=== PATIENT | female | born 1945 | race Caucasian/White ===

== ENCOUNTER 2017-02-25 04:35 | Inpatient (IN) | payer MEDICARE ==
[2017-02-25] MEDS ORDERED: ACETAMINOPHEN 325 MG TABLET ONE (04:59)
--- NOTE | 2017-02-25 04:59 | ERNOTE ---
Medical Problem HPI - Narrative Date of Service: 02/25/17 - General Chief Complaint: Fever Time Seen by Provider: 02/25/17 04:56 Source: patient, family Exam Limitations: no limitations - Immun/Allergies/Home Medications Immunizations: IMMUNIZATION HX Immunizations Up to Date Yes History of Influenza Vaccine Yes Hx Pneumococcal Vaccination Yes Allergies/Adverse Reactions: Allergies escitalopram oxalate [From Lexapro] Allergy (Verified 09/29/14 10:06) Home Medications: HOME MEDICATIONS Amitriptyline HCl 150 mg PO 09/29/14 [Last Taken Unknown] Atorvastatin Calcium [Lipitor] 20 mg PO DAILY 09/29/14 [Last Taken Unknown] Esomeprazole Magnesium [Nexium] 40 mg PO DAILY 09/29/14 [Last Taken Unknown] Lisinopril [Zestril] 10 mg PO DAILY 09/29/14 [Last Taken Unknown] - History of Present History Narrative: C/O FEVER AND WEAKNESS THIS MORNING. DENIES OTHER PROBLEMS EXCEPT THAT SHE HAS "BAD REFLUX". SHE DENIES COUGHING, EARACHE , CONGESTION, SORE THROAT. NO N & V & D. NO UTI SX'S. NO ABD PAINS. NO KNOWN CONTACTS. GENERALLY WELL. HAS STOPPED TAKING THE HTN MEDS SHE WAS PREVIOUSLY ON. Timing: unsure Review of Systems - Review of Systems Constitutional: Present: See HPI, fever, weakness, malaise EYE: Present: no symptoms reported ENT: Present: no symptoms reported Respiratory: Present: no symptoms reported Cardiology: Present: edema Gastrointestinal/Abdominal: Present: See HPI Genitourinary: Present: no symptoms reported Musculoskeletal: Present: no symptoms reported Skin: Present: no symptoms reported Neurological: Present: no symptoms reported Endocrine: Present: no symptoms reported Hematologic/Lymphatic: Present: no symptoms reported Psych: Present: no symptoms reported - Patient's Past Medical History Patient History - Medical: Anxiety, Depression, GERD, Hypothyroidism Patient History - Cardiac/Respiratory: Hypertension, Hyperlipidemia, Pneumonia Patient History - Cancer: No Hx of Cancer Patient History - Surgical Procedures: No surgical history Patient History - Other: None - Social History Living Situations: home Abuse History: No History of abuse Psych History: Hx of Anxiety, Hx of Depression Smoking Status: Never smoker Alcohol Use: none Drug Use: none - Immunizations Immunizations Up to Date: Yes Hx Pneumococcal Vaccination: Yes History of Influenza Vaccine: Yes Physical Exam - Physical Exam General Appearance: Present: wd/wn, alert, mild distress Eye Exam: Normal inspection: bilateral Ears, Nose, Throat: Present: normal ENT inspection Neck: Present: normal inspection Respiratory: Present: no respiratory distress, no accessory muscle use, chest nontender, rales - BILATERAL BASILAR RALES , R> L Cardiovascular/Chest: Present: no murmur, normal peripheral pulses, tachycardia Gastrointestinal/Abdominal: Present: normal bowel sounds, nontender, nondistended, soft, no organomegaly Back Exam: Present: normal inspection, normal range of motion, no CVA tenderness Extremity Exam: Present: normal inspection Neurological Exam: Present: alert, oriented, normal mood/affect Skin Exam: Present: normal color, warm/dry ED Progress - Results and Orders Patient's Lab Results:: I have reviewed the patient's lab results. Results and Orders: ELEVATED WBC WITH LEFT SHIFT AND ELEVATED LACTIC = 3.0. URINE IS CLEAR. - Vital Signs Patient's Vital Signs:: I have reviewed the patient's vital signs. Vital Signs: Vital Signs 02/25/17 04:38 Temperature 39.2 C H Pulse Rate 130 H Respiratory 20 Rate Blood Pressure 151/66 O2 Sat by Pulse 93 Oximetry - X-Ray X-Ray #1 X-Ray: chest Interpretation: Interp. by me - POSTERIOR CARDIAC INFILTRATE ON LATERAL AND INCREASED RLL MARKINGS. - Progress/Reassessment Chief Complaint: Fever Plan - Plan Plan: D/W HOSPITALIST ,[facility], AND ARRANGED FOR ADMISSION. I HAVE ORDERED LEVAQUIN 750 MG IV INITIAL DOSE AND SHE IS RECEIVING 1 LITER OF NS BOLUS Departure - Departure Clinical Impression: Lactic acid increased Fever Qualifiers: Fever type: due to other condition Qualified Code(s): R50.81 - Fever presenting with conditions classified elsewhere Pneumonia Qualifiers: Pneumonia type: due to unspecified organism Laterality: bilateral Lung location : lower lobe of lung Qualified Code(s): J18.9 - Pneumonia, unspecified organism Disposition: [facility] Condition: Fair Referrals: Matthew Berman DO [Primary Care Provider] -
[2017-02-25 05:00] LABS: Hematocrit 35.3 % (37.0-47.0); Hemoglobin 11.8 gm/dL (12.5-16.0); Mean Corpuscular Hemoglobin 29.4 pg (27-31); Mean Corpuscular Hgb Conc 33.4 g/dl (32-36); Neutrophil # 15.1 K/mm3 (1.3-6.0); Neutrophil % 89.5 % (42-75.0); Platelet Count 264 K/mm3 (150-450); Red Blood Count 4.01 M/mm3 (4.2-5.4); White Blood Count 16.8 K/mm3 (4.0-10.5)
[2017-02-25] MEDS ORDERED: NORMAL SALINE 1,000 ML IV SCH (05:00)
[2017-02-25] MEDS ORDERED: ACETAMINOPHEN 325 MG TABLET PO ONE (05:01)
[2017-02-25 05:05] LABS: Urine Bilirubin Negative (NEGATIVE); Urine Blood Negative /ul (NEGATIVE); Urine Ketone Negative (NEGATIVE); Urine Nitrite Negative (NEGATIVE); Urine Protein Negative (NEGATIVE); Urine Urobilinogen Normal (NORMAL); Urine pH 6.5 pH (5.0-7.0)
[2017-02-25 05:06] LABS: Urine Appearance Clear; Urine Bacteria None Seen; Urine Color Pale Yellow; Urine RBC 0-5 /hpf (0-5); Urine WBC 0-5 /hpf (0-5)
[2017-02-25] MEDS ORDERED: NORMAL SALINE 1,000 ML IV PRN (05:10)
[2017-02-25] MEDS ORDERED: SODIUM CHLORIDE IV SCH (05:11)
[2017-02-25] MEDS ORDERED: LEVOFLOXACIN/D5W 750 MG/150 ML BAG IV ONE (05:15)
[2017-02-25 05:24] LABS: Albumin * 3.3 gm/dl (3.4-5.0); Anion Gap 12.4 mmol/L (6.8-13.8); BUN/Creatinine Ratio 11.5 (9.0-21.6); Bilirubin, Total 0.3 mg/dL (0.0-1.1); Ca. Corrected For Albumin 8.7 mg/dL (8.4-10.2); Calcium * 8.5 mg/dL (7.9-10.9); Carbon Dioxide 27.1 mmol/L (24-32.6); Potassium 3.5 mmol/L (3.4-4.6); Total Protein 6.6 gm/dL (6.2-8.2)
--- NOTE | 2017-02-25 06:44 | HP ---
Chief Complaint - Chief Complaint Date of Service: 02/25/17 Time of Service: 06:09 Chief Complaint: " Confusion, weakness, fever, coughing". Source of HPI- Pt; unreliable, pt's spouse Luis, PARESH provoder report. History of Present Illness: Mrs. Jean is a 72-yr-old [place] pt of Dr. Matthew Berman with a PMH of:Anxiety, GERD, HLD, HTN, Hypothyroidism, & Migraines. Pt appears forgetful and Spouse, Luis, provided most of the information. She states repeatedly that the reason she came to the ED was due to "acid reflux attack" and cannot elaborate further the sequence of her symptoms. Luis states that Mrs. Jean has been sleeping on the recliner for the last 2 days due to "bad acid reflux" that causes her to cough and makes it difficult for her to breath." Around 02.00 am, Luis states he was awoken by pt's voice in the kitchen. He thought she was talking on the telephone, but 'actually she was sitting down in the chair talking to herself.' She felt hot to touch. Luis states that she tried to get her up to bring her to the hospital, but she was too weak to stand up. He called the EMS and she was brought to the [facility] ER. He denies Mrs. Jean having the associated symptoms of N/V, SOB, Abdominal pain,Diarrhea & chest pain. During the evaluation at the ED, she was found to have Leukocytosis with a count of 16,800 and Left shift. She was febrile with a temp of 39.2, tachycardic in 120s and has lactic acid of 3.0. The CXR obtained had findings consistent for pneumonia. She will need to be admitted inpatient for a minimum of 2 midnights due to Sepsis and she has a pneumonia seventy score of 3 on CURB-65, which carries a 14 % mortality risk, and calls for inpatient treatment with possible ICU admission. - Patient's Past Medical History Patient History - Medical: Anxiety, Depression, GERD, Hypothyroidism Patient History - Cardiac/Respiratory: Hypertension, Hyperlipidemia, Pneumonia Patient History - Cancer: No Hx of Cancer Patient History - Surgical Procedures: No surgical history Patient History - Other: None - Family History Father Family History - Medical: Family History - Cardiac/Respiratory: Coronary Heart Disease, COPD, Myocardial Infarction Mother Family History - Medical: Family History - Cancer: Pancreatic - Social History Living Situations: home Abuse History: No History of abuse Psych History: Hx of Anxiety, Hx of Depression Smoking Status: Never smoker Alcohol Use: none Drug Use: none - Immunizations Immunizations Up to Date: Yes Hx Pneumococcal Vaccination: Yes History of Influenza Vaccine: Yes Review Of Systems (GEN) - Review of Systems Generalized/Overall Review: Present: Weakness, Chills, Fever, Malaise. Absent: Weight loss EENTM: Present: Eye Pain, Throat Pain. Absent: Nose Congestion Respiratory: Present: Cough, Shortness of Breath. Absent: Orthopnea Cardiac: Absent: Chest Pain, Edema, Palpitations Abdominal: Absent: Nausea, Vomiting, Hematemesis, Abdominal Pain, Constipation Genitourinary: Absent: Burning, Itching, Urgency, Frequency Musculoskeletal: Absent: Joint Pain, Back Pain, Joint Swelling Neurological: Present: Emotional Problems. Absent: Headache, Anxiety, Depressed Skin: Present: Dryness Endocrine: Present: Intolerance to Cold. Absent: Intolerance to Heat, Increased Hunger, Increased Thirst Misc: All systems neg except as marked Immunizations: IMMUNIZATION HX Immunizations Up to Date Yes History of Influenza Vaccine Yes Hx Pneumococcal Vaccination Yes Allergies/Adverse Reactions: Allergies Allergy/AdvReac Type Severity Reaction Status Date / Time escitalopram oxalate Allergy Severe lips Verified 02/25/17 08:07 [From Lexapro] swelling, difficulty swollwing Home Medications: HOME MEDICATIONS Amitriptyline HCl 150 mg PO DAILY 09/29/14 [Last Taken Unknown] ALPRAZolam [Xanax] 0.5 mg PO PRN 02/25/17 [Last Taken Unknown] Acetaminophen with Codeine [Tylenol with Codeine #3 Tablet] 1 each PO Q6H PRN MDD 4 tab 02/25/17 [Last Taken Unknown] Levofloxacin [Levaquin] 750 mg PO DAILY #7 tab 02/25/17 [Last Taken Unknown] Levothyroxine Sodium [Synthroid] 88 mcg PO DAILY 02/25/17 [Last Taken Unknown] Omeprazole 20 mg PO BID 02/25/17 [Last Taken Unknown] Ranitidine HCl [Zantac] 150 mg PO BID 02/25/17 [Last Taken Unknown] Exam - Exam Vital Signs: Vital Signs - Last Taken Temp 38.7 C H 02/25/17 06:04 Pulse 120 H 02/25/17 06:04 Resp 25 H 02/25/17 06:04 BP 144/63 02/25/17 06:04 Pulse Ox 94 02/25/17 06:04 Constitutional: Present: Alert, Oriented x3, Cooperative, Mild distress ENT Exam: Present: normal ENT inspection, hearing grossly normal, dry mucous membranes. Absent: nasal drainage, pharyngeal erythema Neck: Present: full range of motion, supple, normal inspection Back Exam: Present: normal inspection, no CVA tenderness Breasts: Present: Exam deferred Respiratory: Present: lungs clear - RT base, rales Cardiovascular/Chest: Present: no chest tenderness, no edema, tachycardia Abdomen: Present: Normal bowel sounds, soft, nontender /Rectal: Present: Exam deferred Extremity: Present: normal range of motion, non-tender, normal inspection Skin Exam: Present: warm/dry, no cyanosis Lymphatic: Present: no adenopathy Neurologic: Present: alert, normal mood/affect, oriented x 3 Appearance: Present: appropriate appearance, appropriate insight Eye contact: Present: cooperative, good eye contact, normal speech Thoughts: Present: normal thought pattern, no apparent hallucination Diagnostic Studies: Laboratory Results WBC 16.8 K/mm3 (4.0-10.5) H 02/25/17 04:50 RBC 4.01 M/mm3 (4.2-5.4) L 02/25/17 04:50 Hgb 11.8 gm/dL (12.5-16.0) L 02/25/17 04:50 Hct 35.3 % (37.0-47.0) L 02/25/17 04:50 MCV 88.0 fl (78-100) 02/25/17 04:50 MCH 29.4 pg (27-31) 02/25/17 04:50 MCHC 33.4 g/dl (32-36) 02/25/17 04:50 RDW 13.0 % (11.5-14.0) 02/25/17 04:50 Plt Count 264 K/mm3 (150-450) 02/25/17 04:50 MPV 10.0 fl (6.0-9.5) H 02/25/17 04:50 Immature Gran % (Auto) 0.40 % (0.001-0.429) 02/25/17 04:50 Immature Gran # (Auto) 0.07 K/mm3 (0.000-0.0310) H 02/25/17 04:50 Neutrophils % 89.5 % (42-75.0) H 02/25/17 04:50 Lymphocytes % 4.2 % (20-51) L 02/25/17 04:50 Monocytes % 5.2 % (0.0-9) 02/25/17 04:50 Eosinophils % 0.3 % (0.0-3.0) 02/25/17 04:50 Basophils % 0.4 % (0.0-1.0) 02/25/17 04:50 Nucleated RBC % 0.0 k/mm3 (0-1) 02/25/17 04:50 Neutrophils # 15.1 K/mm3 (1.3-6.0) H 02/25/17 04:50 Lymphocytes # 0.7 k/mm3 (1.5-3.5) L 02/25/17 04:50 Monocytes # 0.9 k/mm3 (0.0-1.0) 02/25/17 04:50 Eosinophils # 0.1 k/mm3 (0.0-0.7) 02/25/17 04:50 Absolute Basophils 0.1 k/mm3 (0.0-0.1) 02/25/17 04:50 Sodium 139 mmol/L (132-142) 02/25/17 04:50 Plasma Sodium 139 mmol/L (130-142) 02/25/17 04:50 Potassium 3.5 mmol/L (3.4-4.6) 02/25/17 04:50 Chloride 103 mmol/L (97-106) 02/25/17 04:50 Carbon Dioxide 27.1 mmol/L (24-32.6) 02/25/17 04:50 Anion Gap 12.4 mmol/L (6.8-13.8) 02/25/17 04:50 BUN 11 mg/dL (3-23) 02/25/17 04:50 Creatinine 0.96 mg/dL (0.4-1.4) 02/25/17 04:50 Est GFR (Non-Af Amer) 61 mL/min (60-130) D 02/25/17 04:50 BUN/Creatinine Ratio 11.5 (9.0-21.6) 02/25/17 04:50 Random Glucose 122 mg/dL (70-110) H 02/25/17 04:50 Lactic Acid, Venous 3.0 mmol/L (0.4-1.9) H* 02/25/17 04:50 Calcium 8.5 mg/dL (7.9-10.9) 02/25/17 04:50 Calcium Adj for Albumin 8.7 mg/dL (8.4-10.2) 02/25/17 04:50 Total Bilirubin 0.3 mg/dL (0.0-1.1) 02/25/17 04:50 AST 21 U/L (0-48) 02/25/17 04:50 ALT 20 U/L (19-67) 02/25/17 04:50 Alkaline Phosphatase 74 U/L (50-170) 02/25/17 04:50 Total Protein 6.6 gm/dL (6.2-8.2) 02/25/17 04:50 Albumin 3.3 gm/dl (3.4-5.0) L 02/25/17 04:50 Urine Color Pale yellow 02/25/17 04:50 Urine Appearance Clear 02/25/17 04:50 Urine pH 6.5 pH (5.0-7.0) 02/25/17 04:50 Ur Specific [place] 1.010 SP.GR. (1.005-1.010) 02/25/17 04:50 Urine Protein Negative mg/dL (NEGATIVE) 02/25/17 04:50 Urine Glucose (UA) Negative mg/dL (NEGATIVE) 02/25/17 04:50 Urine Ketones Negative mg/dL (NEGATIVE) 02/25/17 04:50 Urine Blood Negative /ul (NEGATIVE) 02/25/17 04:50 Urine Nitrate Negative (NEGATIVE) 02/25/17 04:50 Urine Bilirubin Negative mg/dl (NEGATIVE) 02/25/17 04:50 Urine Urobilinogen Normal EU/dl (NORMAL) 02/25/17 04:50 Ur Leukocyte Esterase Negative /ul (NEGATIVE) 02/25/17 04:50 Urine RBC 0-5 /hpf (0-5) 02/25/17 04:50 Urine WBC 0-5 /hpf (0-5) 02/25/17 04:50 Ur Epithelial Cells 0-5 /hpf (0-5) 02/25/17 04:50 Urine Bacteria None seen (NONE) 02/25/17 04:50 Urine Culture Comments Culture to follow 02/25/17 04:50 Assessment/Plan - Assessment/Plan (1) Sepsis Assessment: Meets sepsis Criteria noted with: temp of 39.2, HR 130, WBC of 16,800, Lactic Acidosis 3.0 - & Suspected source of infection- Pneumonia. Will treat according to Sepsis protocol- Aggressive IVF hydration, IV antibiotics, trend Lactic acid. Problem: Acute (2) Pneumonia Assessment: The CXR showed Pneumonia in [place], Leukocytosis noted on CBC, and she was febrile with a temp of 39.2. She did not have respiratory symptoms as such involving SOB, coughing, sputum production but these symptom may be subtle in the elderly and the may present instead with weakness, functional decline or change in mental status. Will continue with IV Levaquin as initiated from ER as we await blood & sputum cultures. Encourage coughing and deep breathing, ambulation, Cornet q 2 hrs. Monitor CBC in am. Problem: Acute Qualifiers: Pneumonia type: due to unspecified organism Laterality: bilateral Lung location: lower lobe of lung Qualified Code(s): J18.9 - Pneumonia, unspecified organism (3) Migraine Assessment: Utilize APAP & Toradol q 6hrs. Problem: Chronic (4) GERD (gastroesophageal reflux disease) Assessment: Stable- Continue Omeprazole and Ranitidine. Problem: Chronic (5) HLD (hyperlipidemia) Problem: Chronic (6) Hypothyroidism Problem: Chronic (7) Anxiety Problem: Chronic
[2017-02-25] MEDS: KETOROLAC TROMETHAMINE 15 MG/ML VIAL IV PRN ×3 (07:03→21:03)
[2017-02-25] MEDS: NORMAL SALINE 1,000 ML IV PRN ×3 (07:05→22:52)
[2017-02-25 13:32] LABS: Hematocrit 34.4 % (37.0-47.0); Hemoglobin 11.3 gm/dL (12.5-16.0); Mean Cell Volume 89.6 fl (78-100); Mean Corpuscular Hemoglobin 29.4 pg (27-31); Mean Corpuscular Hgb Conc 32.8 g/dl (32-36); Mean Platelet Volume 10.9 fl (6.0-9.5); Platelet Count 265 K/mm3 (150-450); Red Blood Count 3.84 M/mm3 (4.2-5.4); Red Cell Distribution Width 13.4 % (11.5-14.0); White Blood Count 29.4 K/mm3 (4.0-10.5)
[2017-02-25 14:13] LABS: Neutrophil 71 % (42-75)
[2017-02-25 14:14] LABS: Atypical (Reactive) Lymph 1 % (0-2); Band 18 % (0-2.0); Lymphocyte 4 % (20-51); Monocyte 6 % (0-9); Neutrophil # 20.9 K/mm3 (1.3-6.0); Platelet Estimate Normal (NORMAL)
[2017-02-25 14:15] LABS: Toxic Granulation 1+
[2017-02-25 14:16] LABS: Dohle Bodies Trace; Total Cells Counted 100
[2017-02-25] MEDS: LEVOTHYROXINE SODIUM 88 MCG TABLET PO SCH (14:48)
[2017-02-25] MEDS: PANTOPRAZOLE SODIUM 20 MG TABLET.DR PO SCH (21:03)
[2017-02-25] MEDS: FAMOTIDINE 20 MG TABLET PO SCH (21:03)
[2017-02-26] MEDS: LEVOFLOXACIN/D5W 750 MG/150 ML BAG IV SCH (04:26)
[2017-02-26 05:34] LABS: Hematocrit 29.2 % (37.0-47.0); Hemoglobin 9.6 gm/dL (12.5-16.0); Mean Cell Volume 89.3 fl (78-100); Mean Corpuscular Hemoglobin 29.4 pg (27-31); Mean Corpuscular Hgb Conc 32.9 g/dl (32-36); Mean Platelet Volume 10.5 fl (6.0-9.5); Neutrophil # 20.4 K/mm3 (1.3-6.0); Neutrophil % 85.4 % (42-75.0); Platelet Count 221 K/mm3 (150-450); Red Blood Count 3.27 M/mm3 (4.2-5.4); Red Cell Distribution Width 13.5 % (11.5-14.0); White Blood Count 23.8 K/mm3 (4.0-10.5)
[2017-02-26 05:39] LABS: Total Cells Counted 100
[2017-02-26 05:52] LABS: Anion Gap 12.9 mmol/L (6.8-13.8); BUN/Creatinine Ratio 11.7 (9.0-21.6); Carbon Dioxide 23.5 mmol/L (24-32.6); Estimated Creat Clear 51.5; Potassium 3.4 mmol/L (3.4-4.6)
[2017-02-26 06:03] LABS: Lymphocyte 13 % (20-51); Monocyte 3 % (0-9); Neutrophil 84 % (42-75); Platelet Estimate Normal (NORMAL)
[2017-02-26 06:04] LABS: RBC Morphology Normal (NORMAL)
[2017-02-26] MEDS: PANTOPRAZOLE SODIUM 20 MG TABLET.DR PO SCH ×2 (06:20→20:13)
[2017-02-26] MEDS: KETOROLAC TROMETHAMINE 15 MG/ML VIAL IV PRN ×2 (06:21→13:41)
[2017-02-26] MEDS: LEVOTHYROXINE SODIUM 88 MCG TABLET PO SCH (06:21)
--- NOTE | 2017-02-26 06:26 | PN ---
Subjective - Date and Time Seen Date: 02/26/17 Time: 06:23 Subjective Narrative: Mrs. Jean examined this am. Feels weak and not back to normal self. States that her chest hurts when she takes a deep breath. Has not ambulated much. Objective - Vitals Vitals: Last Vital Signs Temp 37.4 C 02/26/17 03:00 Pulse 101 H 02/26/17 03:00 Resp 18 02/26/17 03:00 BP 111/49 02/26/17 03:00 Pulse Ox 90 02/26/17 03:00 - Abnormal Lab Findings Abnormal Lab Findings: Abnormal Lab Results 02/25/17 02/26/17 02/26/17 Range/Units 12:06 05:15 05:15 WBC 29.4 H D 23.8 H (4.0-10.5) K/mm3 RBC 3.84 L 3.27 L (4.2-5.4) M/mm3 Hgb 11.3 L 9.6 L (12.5-16.0) gm/dL Hct 34.4 L 29.2 L (37.0-47.0) % MPV 10.9 H 10.5 H (6.0-9.5) fl Immature Gran % (Auto) 1.00 H (0.001-0.429) % Immature Gran # (Auto) 0.23 H (0.000-0.0310) K/mm3 Neutrophils % 85.4 H (42-75.0) % Neutrophils % (Manual) 84 H (42-75) % Band Neuts % (Manual) 18 H (0-2.0) % Lymphocytes % 8.9 L (20-51) % Lymphocytes % (Manual) 4 L 13 L (20-51) % Neutrophils # 20.4 H (1.3-6.0) K/mm3 Neutrophils # (Manual) 20.9 H 20.0 H (1.3-6.0) K/mm3 Lymphocytes # (Manual) 1.2 L (1.5-3.5) k/mm3 Monocytes # (Manual) 1.8 H (0.0-1.0) k/mm3 Chloride 107 H (97-106) mmol/L Carbon Dioxide 23.5 L (24-32.6) mmol/L - Exam Constitutional: Present: Alert, Oriented x3, No distress ENT Exam: Present: normal ENT inspection, hearing grossly normal. Absent: nasal drainage Neck: Present: full range of motion, supple, normal inspection Breasts: Present: Exam deferred Respiratory: Present: rales - Both bases of Lungs Cardiovascular/Chest: Present: regular rate, rhythm, no chest tenderness, no edema, no murmur Abdomen: Present: Normal bowel sounds, soft, nontender /Rectal: Present: Exam deferred Extremity: Present: normal range of motion, non-tender Skin Exam: Present: warm/dry, no cyanosis Lymphatic: Present: no adenopathy Neurologic: Present: no motor/sensory deficits, alert, oriented x 3, depressed affect. Absent: dizzy/light-headedness Appearance: Present: appropriate appearance, appropriate insight Eye contact: Present: cooperative, good eye contact, normal speech Thoughts: Present: normal thought pattern, no apparent hallucination Assessment/Plan - Problems/Diagnosis (1) Sepsis Problem: Acute Narrative: Met the sepsis Criteria noted with: temp of 39.2, HR 130, WBC of 16,800, Lactic Acidosis 3.0 - & Suspected source of infection- Pneumonia. Treated according to Sepsis protocol- Aggressive IVF hydration, IV antibiotics - on Levaquin, wait on blood culture to switch antibiotics. Will stop IVF hydration due to rales on LS this am. (2) Pneumonia Problem: Acute Qualifiers: Pneumonia type: due to unspecified organism Laterality: bilateral Lung location: lower lobe of lung Qualified Code(s): J18.9 - Pneumonia, unspecified organism Narrative: The CXR showed Pneumonia in [place], Leukocytosis noted on CBC, and she was febrile with a temp of 39.2 on DOA. She did not have respiratory symptoms as such involving SOB, coughing, sputum production but these symptom may be subtle in the elderly and the may present instead with weakness, functional decline or change in mental status. WBC trending down but slowly Laboratory Tests 02/25/17 02/25/17 02/26/17 04:50 12:06 05:15 WBC 16.8 H 29.4 H D 23.8 H Will continue with IV Levaquin as initiated from ER as we await blood & sputum cultures. Encourage coughing and deep breathing, ambulation, Cornet q 2 hrs. Monitor CBC in am (3) Migraine Problem: Chronic Narrative: Utilize APAP & Toradol q 6hrs. (4) GERD (gastroesophageal reflux disease) Problem: Chronic (5) HLD (hyperlipidemia) Problem: Chronic (6) Hypothyroidism Problem: Chronic (7) Anxiety Problem: Chronic
[2017-02-26] MEDS ORDERED: AMITRIPTYLINE HCL 50 MG TABLET PO SCH (09:00)
[2017-02-26] MEDS ORDERED: ALPRAZolam 0.5 MG TABLET PO PRN (09:00)
[2017-02-26] MEDS: FAMOTIDINE 20 MG TABLET PO SCH ×2 (09:42→20:13)
--- NOTE | 2017-02-26 09:43 | PN ---
Progess Note - Interim Narrative: 02/26/17 09:42 WBC down to 23 from 29. transferred to acute status.
[2017-02-26] MEDS: ACETAMINOPHEN 325 MG TABLET PO PRN (13:41)
[2017-02-26] MEDS: AMITRIPTYLINE HCL 50 MG TABLET PO SCH (20:13)
[2017-02-27] MEDS: LEVOFLOXACIN/D5W 750 MG/150 ML BAG IV SCH (05:14)
[2017-02-27] MEDS: ACETAMINOPHEN 325 MG TABLET PO PRN ×2 (05:34→15:00)
--- NOTE | 2017-02-27 06:17 | PN ---
Subjective - Date and Time Seen Date: 02/27/17 Time: 06:15 Subjective Narrative: Pt examined this am. No issues overnight according to nursing. Feels somewhat better minus the 'on & off' fevers. Objective - Vitals Vitals: Last Vital Signs Temp 37.9 C H 02/27/17 05:35 Pulse 98 02/26/17 22:43 Resp 16 02/26/17 22:43 BP 133/61 02/26/17 22:43 Pulse Ox 91 02/26/17 22:43 - Exam Constitutional: Present: Alert, Oriented x3, Cooperative, No distress ENT Exam: Present: normal ENT inspection, hearing grossly normal Neck: Present: full range of motion, supple Breasts: Present: Exam deferred Respiratory: Present: no accessory muscle use, rales Cardiovascular/Chest: Present: normal peripheral pulses, regular rate, rhythm, no chest tenderness, no edema, no murmur Abdomen: Present: Normal bowel sounds, soft, nontender /Rectal: Present: Exam deferred Extremity: Present: normal range of motion, non-tender, normal inspection Skin Exam: Present: warm/dry, no cyanosis Lymphatic: Present: no adenopathy Neurologic: Present: no motor/sensory deficits, alert, normal mood/affect, oriented x 3 Appearance: Present: appropriate appearance, appropriate insight Eye contact: Present: cooperative, good eye contact, normal speech Thoughts: Present: normal thought pattern, no apparent hallucination Assessment/Plan - Problems/Diagnosis (1) Sepsis Problem: Acute Narrative: Met the sepsis Criteria noted with: temp of 39.2, HR 130, WBC of 16,800, Lactic Acidosis 3.0 - & Suspected source of infection- Pneumonia. Treated according to Sepsis protocol- Aggressive IVF hydration, IV antibiotics - on Levaquin, wait on blood culture to switch antibiotics. (2) Pneumonia Problem: Acute Qualifiers: Pneumonia type: due to unspecified organism Laterality: bilateral Lung location: lower lobe of lung Qualified Code(s): J18.9 - Pneumonia, unspecified organism Narrative: The CXR showed Pneumonia in [place], Leukocytosis noted on CBC, and she was febrile with a temp of 39.2 on DOA. She did not have respiratory symptoms as such involving SOB, coughing, sputum production but these symptom may be subtle in the elderly and the may present instead with weakness, functional decline or change in mental status. Laboratory Tests 02/25/17 02/25/17 02/26/17 04:50 12:06 05:15 WBC 16.8 H 29.4 H D 23.8 H Will continue with IV Levaquin as initiated from ER as we await blood & sputum cultures. May add or change iv antibiotics if WBC has not improved significantly today. Encourage coughing and deep breathing, ambulation, Cornet q 2 hrs. Monitor CBC in am (3) Migraine Problem: Chronic Narrative: Utilize APAP & Toradol q 6hrs. (4) GERD (gastroesophageal reflux disease) Problem: Chronic (5) HLD (hyperlipidemia) Problem: Chronic (6) Hypothyroidism Problem: Chronic (7) Anxiety Problem: Chronic
[2017-02-27] MEDS: PANTOPRAZOLE SODIUM 20 MG TABLET.DR PO SCH ×2 (07:09→20:18)
[2017-02-27] MEDS: LEVOTHYROXINE SODIUM 88 MCG TABLET PO SCH (07:09)
[2017-02-27] MEDS: FAMOTIDINE 20 MG TABLET PO SCH ×2 (08:44→20:18)
[2017-02-27 09:00] LABS: Hemoglobin 9.5 gm/dL (12.5-16.0); Mean Cell Volume 88.1 fl (78-100); Mean Corpuscular Hemoglobin 28.9 pg (27-31); Mean Corpuscular Hgb Conc 32.8 g/dl (32-36); Neutrophil # 15.2 K/mm3 (1.3-6.0); Platelet Count 205 K/mm3 (150-450); Red Blood Count 3.29 M/mm3 (4.2-5.4); Red Cell Distribution Width 13.4 % (11.5-14.0); White Blood Count 17.8 K/mm3 (4.0-10.5)
[2017-02-27 09:08] LABS: Anion Gap 9.8 mmol/L (6.8-13.8); BUN/Creatinine Ratio 6.9 (9.0-21.6); Calcium * 8.1 mg/dL (7.9-10.9); Carbon Dioxide 28.3 mmol/L (24-32.6); Estimated Creat Clear 45.5; Potassium 3.1 mmol/L (3.4-4.6)
[2017-02-27] MEDS ORDERED: POTASSIUM CHLORIDE 10 MEQ TABLET.SA PO ONE (10:43)
[2017-02-27] MEDS ORDERED: ALBUTEROL SULFATE/IPRATROPIUM 3 ML NEBU IH PRN (15:11)
[2017-02-27] MEDS: AMITRIPTYLINE HCL 50 MG TABLET PO SCH (20:17)
[2017-02-28] MEDS: ACETAMINOPHEN 325 MG TABLET PO PRN ×2 (00:15→11:53)
[2017-02-28] MEDS: LEVOFLOXACIN/D5W 750 MG/150 ML BAG IV SCH (05:13)
[2017-02-28] MEDS: LEVOTHYROXINE SODIUM 88 MCG TABLET PO SCH (06:20)
[2017-02-28] MEDS: PANTOPRAZOLE SODIUM 20 MG TABLET.DR PO SCH ×2 (06:21→20:49)
[2017-02-28 09:05] LABS: Hematocrit 30.5 % (37.0-47.0); Hemoglobin 10.3 gm/dL (12.5-16.0); Mean Cell Volume 87.4 fl (78-100); Mean Corpuscular Hemoglobin 29.5 pg (27-31); Mean Corpuscular Hgb Conc 33.8 g/dl (32-36); Neutrophil # 10.9 K/mm3 (1.3-6.0); Neutrophil % 80.5 % (42-75.0); Platelet Count 237 K/mm3 (150-450); Red Blood Count 3.49 M/mm3 (4.2-5.4); Red Cell Distribution Width 13.4 % (11.5-14.0); White Blood Count 13.5 K/mm3 (4.0-10.5)
[2017-02-28 09:12] LABS: Anion Gap 11.8 mmol/L (6.8-13.8); BUN/Creatinine Ratio 5.1 (9.0-21.6); Calcium * 8.7 mg/dL (7.9-10.9); Carbon Dioxide 28.9 mmol/L (24-32.6); Estimated Creat Clear 50.8; Potassium 3.7 mmol/L (3.4-4.6)
[2017-02-28] MEDS: FAMOTIDINE 20 MG TABLET PO SCH ×2 (09:27→20:49)
[2017-02-28] MEDS: HEPARIN SODIUM,PORCINE 5,000 UNITS/ML VIAL SC SCH ×2 (09:28→20:50)
--- NOTE | 2017-02-28 12:25 | PN ---
Subjective - Date and Time Seen Date: 02/28/17 Time: 12:20 Subjective Narrative: Lesvia has had chills and another fever this AM. Weak and coughing. No n/v. Objective - Vitals Vitals: Last Vital Signs Temp 38.2 C H 02/28/17 11:49 Pulse 103 H 02/28/17 10:59 Resp 20 02/28/17 10:59 BP 160/76 02/28/17 10:59 Pulse Ox 95 02/28/17 10:59 - Abnormal Lab Findings Abnormal Lab Findings: Abnormal Lab Results 02/28/17 02/28/17 Range/Units 08:59 08:59 WBC 13.5 H D (4.0-10.5) K/mm3 RBC 3.49 L (4.2-5.4) M/mm3 Hgb 10.3 L (12.5-16.0) gm/dL Hct 30.5 L (37.0-47.0) % MPV 10.0 H (6.0-9.5) fl Immature Gran % (Auto) 1.80 H (0.001-0.429) % Immature Gran # (Auto) 0.24 H (0.000-0.0310) K/mm3 Neutrophils % 80.5 H (42-75.0) % Lymphocytes % 10.2 L (20-51) % Neutrophils # 10.9 H (1.3-6.0) K/mm3 Lymphocytes # 1.4 L (1.5-3.5) k/mm3 Plasma Sodium 143 H (130-142) mmol/L BUN/Creatinine Ratio 5.1 L (9.0-21.6) Random Glucose 135 H (70-110) mg/dL - Exam Constitutional: Present: Alert, Oriented x3, Cooperative ENT Exam: Present: hearing grossly normal Respiratory: Present: rales - bilateral bases Cardiovascular/Chest: Present: regular rate, rhythm, no edema Abdomen: Present: Normal bowel sounds, soft, nontender, nondistended Skin Exam: Present: normal color, warm/dry, no cyanosis Assessment/Plan - Problems/Diagnosis (1) Pneumonia Problem: Acute Qualifiers: Pneumonia type: due to unspecified organism Laterality: bilateral Lung location: lower lobe of lung Qualified Code(s): J18.9 - Pneumonia, unspecified organism Narrative: WBC improved, but still elevated at 13K. Continues to have fevers, concerned about anaerobes. Will continue levaquin and add flagyl. Recheck CBC in AM.
[2017-02-28] MEDS: metroNIDAZOLE 500 MG TABLET PO SCH ×2 (13:21→20:48)
[2017-02-28] MEDS: KETOROLAC TROMETHAMINE 15 MG/ML VIAL IV PRN (17:28)
[2017-02-28] MEDS: AMITRIPTYLINE HCL 50 MG TABLET PO SCH (20:49)
[2017-03-01] MEDS: metroNIDAZOLE 500 MG TABLET PO SCH ×2 (04:44→11:52)
[2017-03-01] MEDS: LEVOTHYROXINE SODIUM 88 MCG TABLET PO SCH (07:36)
[2017-03-01] MEDS: PANTOPRAZOLE SODIUM 20 MG TABLET.DR PO SCH (07:36)
[2017-03-01 08:43] LABS: Hematocrit 32.7 % (37.0-47.0); Mean Cell Volume 86.3 fl (78-100); Mean Corpuscular Hgb Conc 33.6 g/dl (32-36); Mean Platelet Volume 10.3 fl (6.0-9.5); Neutrophil # 6.6 K/mm3 (1.3-6.0); Neutrophil % 67.3 % (42-75.0); Platelet Count 298 K/mm3 (150-450); Red Blood Count 3.79 M/mm3 (4.2-5.4); Red Cell Distribution Width 12.9 % (11.5-14.0); White Blood Count 9.9 K/mm3 (4.0-10.5)
[2017-03-01] MEDS: HEPARIN SODIUM,PORCINE 5,000 UNITS/ML VIAL SC SCH (09:16)
[2017-03-01] MEDS: FAMOTIDINE 20 MG TABLET PO SCH (09:16)
[2017-03-01 10:05] VITALS: BP 130/70
[2017-03-01] MEDS ORDERED: LEVOFLOXACIN 750 MG TABLET PO SCH (11:00)
--- NOTE | 2017-03-01 12:20 | DS ---
(1) Pneumonia Diagnosis(s): Lesvia is a 72 yo female that was admitted for possible sepsis secondary to pneumonia. Pneumonia based on chest xray findings, leukocytosis, and clinical symptoms. She was given IVFs, Levaquin, and respiratory therapy treatment. She clinically improved but WBC wanda. There was clinical reports of choking episode prior to initially getting sick and it was thought that the pneumonia may have been secondary to aspiration. Based on this and the rising WBC despite Levaquin , Flagyl was added. WBC then began to improve. WBC normalized, the patient was clinically doing well, and was discharged to home. She was to follow up in clinic in one week and complete a 10 day course of total antibiotics. She was educated on when to return sooner. Problem: Acute Qualifiers: Pneumonia type: aspiration pneumonia Laterality: bilateral Lung location : lower lobe of lung (2) GERD (gastroesophageal reflux disease) Diagnosis(s): It was noted by the patient that while she was treated inpatient her GERD symptoms had resolved. The difference being that she was on formulary medications instead of her usual home medications. Because her symptoms were much improved her ranitidine was replaced with famotidine and omeprazole replaced with pantoprazole which are the formulary medications she was given during the hospital course. Will follow up with her as outpatient to see if she continues to have better success with these medications. Problem: Chronic Procedures Performed: none Discharge Disposition: Home self care Disposition: Home self-care Condition: Good Discharge Activity: Activity as tolerated Discharge Diet: General/regular food Referrals: Matthew Berman DO [Primary Care Provider] - One Week Problem Oriented Discharge Instructions to Patient/Family: Community-Acquired Pneumonia, Adult, [id number] Additional Patient Instructions (free text): Follow up with Dr. Berman 03/08 at 2:00. Prescriptions (Any new or edited meds): Famotidine [Pepcid] 20 mg PO BID #60 tablet Levofloxacin [Levaquin] 750 mg PO DAILY@1100 #7 tablet Pantoprazole Sodium [Protonix] 20 mg PO BID@0700,2100 #60 tablet. metroNIDAZOLE [Flagyl] 500 mg PO Q8H #21 tablet Complete Home Medications List: Complete Home Medication List: Amitriptyline HCl 150 mg PO DAILY 09/29/14 ALPRAZolam [Xanax] 0.5 mg PO PRN 02/25/17 Acetaminophen with Codeine [Tylenol with Codeine #3 Tablet] 1 each PO Q6H PRN MDD 4 tab 02/25/17 Levofloxacin [Levaquin] 750 mg PO DAILY #7 tab 02/25/17 Levothyroxine Sodium [Synthroid] 88 mcg PO DAILY 02/25/17 Famotidine [Pepcid] 20 mg PO BID #60 tablet 03/01/17 Levofloxacin [Levaquin] 750 mg PO DAILY@1100 #7 tablet 03/01/17 Pantoprazole Sodium [Protonix] 20 mg PO BID@0700,2100 #60 tablet. 03/01/17 metroNIDAZOLE [Flagyl] 500 mg PO Q8H #21 tablet 03/01/17
== END 2017-03-01 14:30 | disposition home or self-care (01) | DRG 194 ==
LOC: ER 04:35 → MS 05:40 → OBSVTOIN 02-26 09:33
PROVIDERS: ADMIT Nurse Practitioner; ATTEND Family Medicine
PROC: 0T9B7ZZ Drainage of Bladder, Via Natural or Artificial Opening (ICD-10-PCS; principal; 2017-02-25)
DX: J18.9 Pneumonia, unspecified organism (principal); E87.2 Acidosis; K21.9 Gastro-esophageal reflux disease without esophagitis; G43.909 Migraine, unspecified, not intractable, without status migrainosus; E78.5 Hyperlipidemia, unspecified; E03.9 Hypothyroidism, unspecified; F41.9 Anxiety disorder, unspecified; D72.829 Elevated white blood cell count, unspecified
CPT/HCPCS: 36415; 51701; 71020; 80048; 80053; 81001; 83605; 84484; 85007; 85025; 87040; 87086; 87449; 93005; 94640; 96365; 97161; 97165; 99283; G0378; G8978; G8979; G8980; G8987; G8988; G8989

== ENCOUNTER 2019-08-17 10:49 | Inpatient (IN) ==
[2019-08-17 11:20] LABS: Hematocrit 36.7 % (37.0-47.0); Hemoglobin 12.2 gm/dL (12.5-16.0); Mean Cell Volume 88.2 fl (78-100); Mean Corpuscular Hemoglobin 29.3 pg (27-31); Mean Corpuscular Hgb Conc 33.2 g/dl (32-36); Mean Platelet Volume 9.6 fl (8-12.5); Neutrophil # 12.3 K/mm3 (1.3-6.0); Neutrophil % 83.9 % (42-75.0); Platelet Count 318 K/mm3 (150-450); Red Blood Count 4.16 M/mm3 (4.2-5.4); Red Cell Distribution Width 13.9 % (11.5-14.0); White Blood Count 14.7 K/mm3 (4.0-10.5)
[2019-08-17 11:38] LABS: ALT 19 U/L (19-67); AST 22 U/L (0-48); Albumin * 3.4 gm/dl (3.4-5.0); Alkaline Phosphatase * 94 U/L (50-170); Anion Gap 11.8 mmol/L (6.8-13.8); BUN/Creatinine Ratio 12.2 (9.0-21.6); Bilirubin, Total 0.3 mg/dL (0.0-1.1); Blood Urea Nitrogen 11 mg/dL (3-23); Ca. Corrected For Albumin 8.8 mg/dL (8.4-10.2); Calcium * 8.6 mg/dL (7.9-10.9); Chloride 99 mmol/L (97-106); Glucose * 126 mg/dL (70-110); Potassium 3.8 mmol/L (3.4-4.6); Sodium 137 mmol/L (132-142); Total Protein 7.5 gm/dL (6.2-8.2); Troponin I Less than 0.017 ng/mL (0.00-0.10)
--- NOTE | 2019-08-17 11:58 | ERNOTE ---
Dyspnea - General Presenting Symptoms: shortness of breath Time Seen by Provider: 08/17/19 11:41 Source: patient Exam Limitations: no limitations - Immun/Allergies/Home Medications Immunizations: IMMUNIZATION HX Immunizations Up to Date Yes History of Influenza Vaccine Yes Hx Pneumococcal Vaccination Yes Allergies/Adverse Reactions: Allergies escitalopram oxalate [From Lexapro] Allergy (Severe, Verified 08/17/19 12:50) lips swelling, difficulty swollowing sertraline [From Zoloft] Allergy (Intermediate, Verified 08/17/19 12:50) Lip/tongue swelling Home Medications: HOME MEDICATIONS famotidine 20 mg tablet 20 mg PO BID #180 tab 04/18/18 [Last Taken 08/16/19] alprazolam 0.5 mg tablet 0.5 mg PO BID PRN #180 tab 08/15/18 [Last Taken 08/16/19] acetaminophen 300 mg-codeine 60 mg tablet 1 tab PO Q6H PRN #360 tab 03/06/19 [Last Taken 08/16/19] pantoprazole 40 mg tablet,delayed release 40 mg PO BID #180 tab 05/02/19 [Last Taken 08/16/19] levothyroxine 88 mcg tablet 88 mcg PO DAILY #90 tab 08/13/19 [Last Taken 01/28] Amitriptyline HCl 125 mg PO HS 08/17/19 [Last Taken 08/16/19] Aspirin [Aspir-Low] 81 mg PO DAILY 08/17/19 [Last Taken 08/16/19] - History of Present Illness Narrative: Patient has had a cough and sore throat for three days, today started to feel short of breath, went to the walk in clinic and was found to have an O2 sat in the mid 80's. She has no prior history of lung disease, remote smoking history of 25py, denies chest pain Initiating event: Reports: upper resp illness Frequency of episodes: Reports: occassional episodes Modifying Factors - (Improves): Reports: rest Modifying Factors (Worsens): Reports: activity Associated Symptoms-Dyspnea: Reports: fever/chills, cough. Denies: chest pain/discomfort Prior Treatment: Denies: recently seen, currently on antibiotics Review of Systems - Review of Systems Constitutional: Absent: recent illness ENT: Present: See HPI Respiratory: Present: See HPI, shortness of breath, cough. Absent: other Gastrointestinal/Abdominal: Absent: nausea, abdominal pain Genitourinary: Present: no symptoms reported Musculoskeletal: Absent: back pain Neurological: Absent: headache Medical History (Last Reviewed 08/17/19 @ 19:29 by Vanna Navarro MD) Trigger finger of right hand (Chronic) 3rd and 5th Rheumatoid arteritis (Chronic) hands Migraine (Chronic) Hypothyroidism (Chronic) Hypertension (Chronic) Hyperlipidemia (Chronic) GERD (gastroesophageal reflux disease) (Chronic) Anxiety (Chronic) Fever (Acute) Pneumonia (Acute) Lactic acid increased (Acute) Sepsis (Acute) Migraine (Chronic) HLD (hyperlipidemia) (Chronic) GERD (gastroesophageal reflux disease) (Chronic) Hypothyroidism (Chronic) Anxiety (Chronic) Surgical History: Surgical History (Last Reviewed 08/17/19 @ 19:29 by Vanna Navarro MD) History of Dot fundoplication Onset Date: ~1994 [place] History of colonoscopy Onset Date: ~06/13/17 CLOtest negative History of cystocele Onset Date: ~1997 History of esophagogastroduodenoscopy (EGD) Onset Date: ~05/19/16 ' Tomasz-mild chronic gastritis, Lang's, chronic reflux esophagitis. ' Shruthi-chronic esophagitis w/Lang mucosa, no dysplasia. History of hammer toe correction Onset Date: ~1994 left and right 4th and 5th toes History of pubovaginal sling Onset Date: ~2008 History of tonsillectomy Onset Date: ~1961 History of total vaginal hysterectomy (TVH) Onset Date: Unknown Family History: Family History (Last Reviewed 08/17/19 @ 17:46 by Ria Landry RN) Sister Diabetes Hypertension Obesity Father , age 78 Myocardial infarction massive Diabetes CAD (coronary artery disease) Prostate disease Mother , age 83-d/c'd 4 weeks after her Cancer Pancreatic CA Aunt Diabetes Uncle Diabetes Social History: (Last Reviewed 08/17/19 @ 17:46 by Ria Landry RN) Social History: Marital status: household members: spouse current occupational status: retired Highest education level completed: some college, no degree Service: No Tobacco: Smoking Status: Former smoker Alcohol: alcohol intake: current Substance Use: substance use type: does not use Dietary Habits: caffeine: Yes Physical Exam - Physical Exam General Appearance: Present: wd/wn, alert, no apparent distress Respiratory: Present: no respiratory distress, no accessory muscle use, chest nontender, decreased breath sounds, wheezing - few Cardiovascular/Chest: Present: regular rate, rhythm, no murmur Gastrointestinal/Abdominal: Present: normal bowel sounds, nontender, nondistended, soft Extremity Exam: Present: no edema Neurological Exam: Present: alert, oriented, normal mood/affect Skin Exam: Present: normal color, warm/dry Progress - Results and Orders Patient's Lab Results:: I have reviewed the patient's lab results. - Vital Signs Patient's Vital Signs:: I have reviewed the patient's vital signs. Vital Signs: Vital Signs 08/17/19 10:56 Temperature 37.3 C Pulse Rate 117 H Respiratory Rate 30 H Blood Pressure 135/64 O2 Sat by Pulse Oximetry 86 L - EKG EKG #1 EKG: NSR - sinus tachycardia, nonspecific ST T wave changes EKG read: Interp. by me - X-Ray X-Ray #1 X-Ray: chest - venous congestion, no definite infiltrate Interpretation: Reviewed by me - Progress/Reassessment Chief Complaint: Upper Respiratory Symptoms Progress Note-Subjective: 08/17/19 11:55 discussed clinical diagnosis of pneumonia with elevated WBC, cough and hypoxia offered admission, patient agreed 08/17/19 12:05 discussed with mihai Becerra to admit, start rocephin and zithromax Departure Clinical Impression: Hypoxemia Pneumonia Qualifiers: Pneumonia type: due to unspecified organism Laterality: unspecified laterality Lung location: unspecified part of lung Qualified Code(s): J18.9 - Pneumonia, unspecified organism - Departure Disposition: Home self-care Condition: Stable
[2019-08-17] MEDS ORDERED: AZITHROMYCIN 250 MG TABLET PO STA (12:25)
[2019-08-17] MEDS ORDERED: ACETAMINOPHEN 325 MG TABLET PO PRN (12:25)
[2019-08-17] MEDS ORDERED: PANTOPRAZOLE SODIUM 40 MG TABLET.EC PO SCH ×2 (13:32→21:00)
[2019-08-17] MEDS ORDERED: ACETAMINOPHEN WITH CODEINE 1 EACH TABLET PO PRN (13:41)
[2019-08-17] MEDS ORDERED: ALPRAZolam 0.5 MG TABLET PO PRN (13:41)
[2019-08-17 13:58] LABS: Hematocrit 35.2 % (37.0-47.0); Hemoglobin 11.6 gm/dL (12.5-16.0); Mean Cell Volume 88.9 fl (78-100); Mean Corpuscular Hemoglobin 29.3 pg (27-31); Mean Platelet Volume 9.5 fl (8-12.5); Neutrophil # 12.2 K/mm3 (1.3-6.0); Neutrophil % 84.2 % (42-75.0); Platelet Count 309 K/mm3 (150-450); Red Blood Count 3.96 M/mm3 (4.2-5.4); Red Cell Distribution Width 14.1 % (11.5-14.0); White Blood Count 14.5 K/mm3 (4.0-10.5)
[2019-08-17 14:11] LABS: Anion Gap 13.9 mmol/L (6.8-13.8); Calcium * 8.5 mg/dL (7.9-10.9); Carbon Dioxide 28.8 mmol/L (24-32.6); Estimated Creat Clear 38.4; Potassium 3.7 mmol/L (3.4-4.6)
[2019-08-17] MEDS: AMITRIPTYLINE HCL PO SCH ×2 (19:27)
[2019-08-17] MEDS: PANTOPRAZOLE SODIUM 40 MG TABLET.EC PO SCH (19:28)
[2019-08-17] MEDS: FAMOTIDINE 20 MG TABLET PO SCH (19:28)
--- NOTE | 2019-08-17 20:42 | HP ---
Chief Complaint - Chief Complaint Date of Service: 08/17/19 Time of Service: 19:45 Chief Complaint: Cough, shortness of breath, weakness History of Present Illness: Lesvia Jean is a 74-year-old female admitted through the emergency room with clinical findings consistent with pneumonia. She has an elevated white count with mild tachypnea. Chest x-ray is not specifically revealing of a pneumonia at this time. Nonetheless she will be treated as if she has pneumonia. Appropriate cultures have been done. She has had pneumonia a couple of other times in the past. Ordinarily she does not have any respiratory problems chronically. She otherwise enjoys fairly good health. She lives in her private residence with her . Medical History (Last Reviewed 08/17/19 @ 19:29 by Vanna Navarro MD) Trigger finger of right hand (Chronic) 3rd and 5th Rheumatoid arteritis (Chronic) hands Migraine (Chronic) Hypothyroidism (Chronic) Hypertension (Chronic) Hyperlipidemia (Chronic) GERD (gastroesophageal reflux disease) (Chronic) Anxiety (Chronic) Fever (Acute) Pneumonia (Acute) Lactic acid increased (Acute) Sepsis (Acute) Migraine (Chronic) HLD (hyperlipidemia) (Chronic) GERD (gastroesophageal reflux disease) (Chronic) Hypothyroidism (Chronic) Anxiety (Chronic) Surgical History: Surgical History (Last Reviewed 08/17/19 @ 19:29 by Vanna Navarro MD) History of Dot fundoplication Onset Date: ~1994 [place] History of colonoscopy Onset Date: ~06/13/17 CLOtest negative History of cystocele Onset Date: ~1997 History of esophagogastroduodenoscopy (EGD) Onset Date: ~05/19/16 Tomasz-mild chronic gastritis, Lang's, chronic reflux esophagitis. 16 Shruthi-chronic esophagitis w/Lang mucosa, no dysplasia. History of hammer toe correction Onset Date: ~1994 left and right 4th and 5th toes History of pubovaginal sling Onset Date: ~2008 History of tonsillectomy Onset Date: ~1961 History of total vaginal hysterectomy (TVH) Onset Date: Unknown Family History: Family History (Last Reviewed 08/17/19 @ 17:46 by Ria Landry RN) Sister Diabetes Hypertension Obesity Father , age 78 Myocardial infarction massive Diabetes CAD (coronary artery disease) Prostate disease Mother , age 83-d/c'd 4 weeks after her Cancer Pancreatic CA Aunt Diabetes Uncle Diabetes Social History: (Last Reviewed 08/17/19 @ 17:46 by Ria Landry RN) Social History: Marital status: household members: spouse current occupational status: retired Highest education level completed: some college, no degree Service: No Tobacco: Smoking Status: Former smoker Alcohol: alcohol intake: current Substance Use: substance use type: does not use Dietary Habits: caffeine: Yes Review Of Systems (GEN) - Review of Systems Generalized/Overall Review: Present: Weakness, Malaise, Fatigue EENTM: Present: No Symptoms Reported Respiratory: Present: Cough, Shortness of Breath Cardiac: Present: No Symptoms Reported Abdominal: Present: No Symptoms Reported Genitourinary: Present: No Symptoms Reported Musculoskeletal: Present: No Symptoms Reported Neurological: Present: No Symptoms Reported, Weakness Skin: Present: No Symptoms Reported Endocrine: Present: No Symptoms Reported Immunizations: IMMUNIZATION HX Immunizations Up to Date Yes History of Influenza Vaccine Yes Hx Pneumococcal Vaccination Yes Allergies/Adverse Reactions: Allergies Allergy/AdvReac Type Severity Reaction Status Date / Time escitalopram oxalate Allergy Severe lips Verified 08/17/19 12:50 [From Lexapro] swelling, difficulty swollowing sertraline [From Zoloft] Allergy Intermediate Lip/tongue Verified 08/17/19 12:50 swelling Home Medications: HOME MEDICATIONS famotidine 20 mg tablet 20 mg PO BID #180 tab 04/18/18 [Last Taken 08/16/19] alprazolam 0.5 mg tablet 0.5 mg PO BID PRN #180 tab 08/15/18 [Last Taken 08/16/19] acetaminophen 300 mg-codeine 60 mg tablet 1 tab PO Q6H PRN #360 tab 03/06/19 [Last Taken 08/16/19] pantoprazole 40 mg tablet,delayed release 40 mg PO BID #180 tab 05/02/19 [Last Taken 08/16/19] levothyroxine 88 mcg tablet 88 mcg PO DAILY #90 tab 08/13/19 [Last Taken 08/16/19] Amitriptyline HCl 125 mg PO HS 08/17/19 [Last Taken 08/16/19] Aspirin [Aspir-Low] 81 mg PO DAILY 08/17/19 [Last Taken 08/16/19] Exam - Exam Vital Signs: Vital Signs - Last Taken Temp 37.6 C 12/06/19 18:49 Pulse 108 H 08/17/19 18:49 Resp 14 08/17/19 18:49 BP 165/75 H 08/17/19 18:49 Pulse Ox 96 08/17/19 18:49 Constitutional: Present: Alert, Oriented x3, Cooperative, Well developed, Well nourished, Mild distress ENT Exam: Present: normal ENT inspection, hearing grossly normal, pharynx normal, TMs normal Eye Exam: bilateral eye: normal inspection, PERRL, EOMI Neck: Present: non-tender, supple, limited range of motion Back Exam: Present: normal inspection, no CVA tenderness, no vertebral tenderness Breasts: Present: Exam deferred Respiratory: Present: chest non-tender, rhonchi, wheezing, expiration (prolonged), other - Loose sounding cough Cardiovascular/Chest: Present: normal peripheral pulses, regular rate, rhythm, no chest tenderness, no edema, no gallop, no JVD, no murmur, no rub Peripheral Pulses: carotid (R): 2+, carotid (L): 2+, radial (R): 2+, radial (L): 2+ Abdomen: Present: Normal bowel sounds, soft, nontender, nondistended, no rebound tenderness, no hepatospenomegaly, no masses /Rectal: Present: Exam deferred Extremity: Present: normal range of motion, non-tender, normal inspection, no pedal edema, no calf tenderness, normal capillary refill Skin Exam: Present: warm/dry, pallor Neurologic: Present: 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001-0.429) % Immature Gran # (Auto) 0.10 H (0.000-0.0310) K/mm3 Neutrophils % 83.9 H (42-75.0) % Lymphocytes % 9.1 L (20-51) % Neutrophils # 12.3 H (1.3-6.0) K/mm3 Lymphocytes # 1.34 L (1.5-3.5) k/mm3 Anion Gap 13.9 H (6.8-13.8) mmol/L Est GFR (Non-Af Amer) 57 L (60-130) mL/min Random Glucose 126 H 127 H (70-110) mg/dL Lactic Acid, Venous (0.4-2.0) mmol/L 08/17/19 08/17/19 Range/Units 13:50 13:50 WBC 14.5 H (4.0-10.5) K/mm3 RBC 3.96 L (4.2-5.4) M/mm3 Hgb 11.6 L (12.5-16.0) gm/dL Hct 35.2 L (37.0-47.0) % RDW 14.1 H (11.5-14.0) % Immature Gran % (Auto) (0.001-0.429) % Immature Gran # (Auto) 0.05 H (0.000-0.0310) K/mm3 Neutrophils % 84.2 H (42-75.0) % Lymphocytes % 10.3 L (20-51) % Neutrophils # 12.2 H (1.3-6.0) K/mm3 Lymphocytes # 1.49 L (1.5-3.5) k/mm3 Anion Gap (6.8-13.8) mmol/L Est GFR (Non-Af Amer) (60-130) mL/min Random Glucose (70-110) mg/dL Lactic Acid, Venous 3.0 H* (0.4-2.0) mmol/L Laboratory Results WBC 14.5 K/mm3 (4.0-10.5) H 08/17/19 13:50 RBC 3.96 M/mm3 (4.2-5.4) L 12/06/19 13:50 Hgb 11.6 gm/dL (12.5-16.0) L 08/17/19 13:50 Hct 35.2 % (37.0-47.0) L 08/17/19 13:50 MCV 88.9 fl (78-100) 08/17/19 13:50 MCH 29.3 pg (27-31) 08/17/19 13:50 MCHC 33.0 g/dl (32-36) 08/17/19 13:50 RDW 14.1 % (11.5-14.0) H 08/17/19 13:50 Plt Count 309 K/mm3 (150-450) 08/17/19 13:50 MPV 9.5 fl (8-12.5) 08/17/19 13:50 Immature Gran % (Auto) 0.30 % (0.001-0.429) 08/17/19 13:50 Immature Gran # (Auto) 0.05 K/mm3 (0.000-0.0310) H 08/17/19 13:50 Neutrophils % 84.2 % (42-75.0) H 08/17/19 13:50 Lymphocytes % 10.3 % (20-51) L 08/17/19 13:50 Monocytes % 4.5 % (0.0-9) 08/17/19 13:50 Eosinophils % 0.4 % (0.0-3.0) 08/17/19 13:50 Basophils % 0.3 % (0.0-1.0) 08/17/19 13:50 Nucleated RBC % 0.0 k/mm3 (0-1) 08/17/19 13:50 Neutrophils # 12.2 K/mm3 (1.3-6.0) H 08/17/19 13:50 Lymphocytes # 1.49 k/mm3 (1.5-3.5) L 08/17/19 13:50 Monocytes # 0.7 k/mm3 (0.0-1.0) 08/17/19 13:50 Eosinophils # 0.1 k/mm3 (0.0-0.7) 08/17/19 13:50 Absolute Basophils 0.0 k/mm3 (0.0-0.1) 08/17/19 13:50 Sodium 136 mmol/L (132-142) 08/17/19 13:50 Plasma Sodium 136 mmol/L (130-142) 08/17/19 13:50 Potassium 3.7 mmol/L (3.4-4.6) 08/17/19 13:50 Chloride 97 mmol/L (97-106) 08/17/19 13:50 Carbon Dioxide 28.8 mmol/L (24-32.6) 08/17/19 13:50 Anion Gap 13.9 mmol/L (6.8-13.8) H 08/17/19 13:50 BUN 10 mg/dL (3-23) 08/17/19 13:50 Creatinine 1.00 mg/dL (0.4-1.4) 08/17/19 13:50 Est GFR (Non-Af Amer) 57 mL/min (60-130) L 08/17/19 13:50 BUN/Creatinine Ratio 10.0 (9.0-21.6) 08/17/19 13:50 Random Glucose 127 mg/dL (70-110) H 08/17/19 13:50 Lactic Acid, Venous 1.6 mmol/L (0.4-2.0) 08/17/19 16:25 Calcium 8.5 mg/dL (7.9-10.9) 08/17/19 13:50 Calcium Adj for Albumin 8.8 mg/dL (8.4-10.2) 08/17/19 11:10 Total Bilirubin 0.3 mg/dL (0.0-1.1) 08/17/19 11:10 AST 22 U/L (0-48) 08/17/19 11:10 ALT 19 U/L (19-67) 08/17/19 11:10 Alkaline Phosphatase 94 U/L (50-170) 08/17/19 11:10 Troponin I Less than 0.017 ng/mL (0.00-0.10) 08/17/19 11:10 B-Natriuretic Peptide 334 pg/mL (5-550) 08/17/19 11:10 Total Protein 7.5 gm/dL (6.2-8.2) 08/17/19 11:10 Albumin 3.4 gm/dl (3.4-5.0) 08/17/19 11:10 Assessment/Plan - Narrative Narrative: Lesvia will get respiratory therapy treatments every 6 hours and every 4 hours as needed. She will use a Alexander several times a day to help loosen her secretions. She will continue IV Rocephin and p.o. azithromycin. I will repeat his CBC and BMP tomorrow morning and also repeat a chest x-ray tomorrow morning. - Assessment/Plan (1) Pneumonia Assessment: The chest x-ray shows mild cardiomegaly with increased pulmonary vascular markings suggestive of mild CHF/pulmonary edema. She does not have a history of CHF and I suspect this is been precipitated by the pneumonia which may be interstitial. There is no consolidation at this time. I will repeat the chest x-ray in the morning. She has been diuresed and is breathing quite a bit easier this evening. She still has bilateral rhonchi with expiratory wheezes and prolonged expiratory phase. Her neck veins are not distended and her HJR is negative at 45 degrees. There is no peripheral edema. Problem: Acute Qualifiers: Pneumonia type: due to unspecified organism Laterality: unspecified laterality Lung location: unspecified part of lung Qualified Code(s): J18.9 - Pneumonia, unspecified organism (2) Hypoxemia Problem: Acute (3) Anxiety Problem: Chronic (4) CHF (congestive heart failure) Problem: Acute Qualifiers: Heart failure type: diastolic Heart failure chronicity: acute Qualified Code(s): I50.31 - Acute diastolic (congestive) heart failure
[2019-08-17] MEDS ORDERED: AMITRIPTYLINE HCL PO SCH ×3 (21:00)
[2019-08-17] MEDS ORDERED: FAMOTIDINE 20 MG TABLET PO SCH (21:00)
[2019-08-18 05:52] LABS: Hematocrit 35.3 % (37.0-47.0); Hemoglobin 11.7 gm/dL (12.5-16.0); Mean Cell Volume 88.5 fl (78-100); Mean Corpuscular Hemoglobin 29.3 pg (27-31); Mean Corpuscular Hgb Conc 33.1 g/dl (32-36); Mean Platelet Volume 9.7 fl (8-12.5); Neutrophil # 7.3 K/mm3 (1.3-6.0); Neutrophil % 73.2 % (42-75.0); Platelet Count 284 K/mm3 (150-450); Red Blood Count 3.99 M/mm3 (4.2-5.4); Red Cell Distribution Width 14.4 % (11.5-14.0)
[2019-08-18 05:57] LABS: Anion Gap 15.1 mmol/L (6.8-13.8); Calcium * 8.6 mg/dL (7.9-10.9); Carbon Dioxide 27.7 mmol/L (24-32.6); Estimated Creat Clear 55.7; Potassium 3.8 mmol/L (3.4-4.6)
[2019-08-18] MEDS: FAMOTIDINE 20 MG TABLET PO SCH ×2 (07:04→19:34)
[2019-08-18] MEDS: LEVOTHYROXINE SODIUM 88 MCG TABLET PO SCH (07:04)
[2019-08-18] MEDS: PANTOPRAZOLE SODIUM 40 MG TABLET.EC PO SCH ×2 (07:04→19:35)
[2019-08-18] MEDS: ASPIRIN 81 MG TABLET.DR PO SCH (08:48)
[2019-08-18] MEDS: AZITHROMYCIN 250 MG TABLET PO SCH (08:48)
[2019-08-18] MEDS ORDERED: ALBUTEROL SULFATE/IPRATROPIUM 3 ML NEBU IH PRN (13:23)
--- NOTE | 2019-08-18 16:30 | PN ---
Subjective - Date and Time Seen Date: 08/18/19 Time: 10:15 Subjective Narrative: Lesvia Jean is a patient of Dr. Berman and is feeling some better this morning. This afternoon we ambulated her as part of her oxygen titration to see if she could ambulate without oxygen and since then she has been tired and just not feeling well. At rest her heart rates in sinus tachycardia rate of 120. Her white count is still in the 14,500 range. She has been afebrile. Repeat chest x-ray this morning shows improved appearance of the pulmonary vascular congestion and the heart is smaller in size than yesterday. There is still no consolidated mass present. But clinically she still looks to have pneumonia. Objective - Review of Systems Generalized/Overall Review: Reports: No Symptoms Reported, Weakness, Malaise, Fatigue EENTM: Reports: No Symptoms Reported Respiratory: Reports: Cough, Shortness of Breath Cardiac: Reports: No Symptoms Reported, Other - Heart racing and pounding Abdominal: Reports: No Symptoms Reported Genitourinary Symptoms: Reports: No Symptoms Reported Musculoskeletal Complaints: Reports: No Symptoms Reported Neurological: Reports: No Symptoms Reported Skin: Reports: No Symptoms Reported Endocrine: Reports: No Symptoms Reported - Vitals Vitals: Last Vital Signs Temp 36.7 C 08/18/19 10:00 Pulse 116 H 08/18/19 15:18 Resp 20 08/18/19 15:18 BP 112/60 08/18/19 10:00 Pulse Ox 92 L 08/18/19 15:08 - Abnormal Lab Findings Abnormal Lab Findings: Abnormal Lab Results 08/17/19 08/17/19 08/17/19 Range/Units 05:40 05:40 11:10 WBC 14.7 H D (4.0-10.5) K/mm3 RBC 3.99 L (4.2-5.4) M/mm3 Hgb 11.7 L (12.5-16.0) gm/dL Hct 35.3 L (37.0-47.0) % RDW 14.4 H (11.5-14.0) % Immature Gran # (Auto) 0.04 H (0.000-0.0310) K/mm3 Lymphocytes % 15.2 L (20-51) % Neutrophils # 7.3 H (1.3-6.0) K/mm3 Anion Gap 15.1 H (6.8-13.8) mmol/L Random Glucose (70-110) mg/dL 08/17/19 Range/Units 11:10 WBC (4.0-10.5) K/mm3 RBC (4.2-5.4) M/mm3 Hgb (12.5-16.0) gm/dL Hct (37.0-47.0) % RDW (11.5-14.0) % Immature Gran # (Auto) (0.000-0.0310) K/mm3 Lymphocytes % (20-51) % Neutrophils # (1.3-6.0) K/mm3 Anion Gap (6.8-13.8) mmol/L Random Glucose 126 H D (70-110) mg/dL - EKG/Xray Findings EKG read: Reviewed by me Interpretation: Reviewed by me - Exam Constitutional: Present: Alert, Oriented x3, Cooperative, Well developed, Well nourished, Mild distress ENT Exam: Present: normal ENT inspection, hearing grossly normal, pharynx normal, TMs normal Neck: Present: non-tender, full range of motion, supple, normal inspection Breasts: Present: Exam deferred Respiratory: Present: chest non-tender, rhonchi, stridor, wheezing, expiration (prolonged) Cardiovascular/Chest: Present: normal peripheral pulses, regular rate, rhythm, no chest tenderness, no edema, no gallop, no JVD, no murmur, no rub Abdomen: Present: Normal bowel sounds, soft, nontender, nondistended, no rebound tenderness, no hepatospenomegaly, no masses /Rectal: Present: Exam deferred, External genitalia normal Extremity: Present: normal range of motion, non-tender, normal inspection, no pedal edema, no calf tenderness, normal capillary refill Skin Exam: Present: normal color, warm/dry, no cyanosis Lymphatic: Present: no adenopathy Neurologic: Present: 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 CBC CMP magnesium tomorrow 2. Portable chest x-ray 3. Twelve-lead EKG done this evening 4. Continue the weaning process from her oxygen 5. Admit to [facility] acute status. - Problems/Diagnosis (1) Pneumonia Problem: Acute Qualifiers: Pneumonia type: due to unspecified organism Laterality: unspecified laterality Lung location: unspecified part of lung Qualified Code(s): J18.9 - Pneumonia, unspecified organism (2) Hypoxemia Problem: Acute (3) Anxiety Problem: Chronic (4) CHF (congestive heart failure) Problem: Acute Qualifiers: Heart failure type: diastolic Heart failure chronicity: acute Qualified Code(s): I50.31 - Acute diastolic (congestive) heart failure
[2019-08-18] MEDS: AMITRIPTYLINE HCL PO SCH ×2 (19:33)
[2019-08-19] MEDS: LEVOTHYROXINE SODIUM 88 MCG TABLET PO SCH (06:40)
[2019-08-19] MEDS: FAMOTIDINE 20 MG TABLET PO SCH ×2 (06:40→19:39)
[2019-08-19] MEDS: PANTOPRAZOLE SODIUM 40 MG TABLET.EC PO SCH ×2 (06:40→19:39)
[2019-08-19 07:24] LABS: Hematocrit 33.7 % (37.0-47.0); Hemoglobin 11.1 gm/dL (12.5-16.0); Mean Cell Volume 88.7 fl (78-100); Mean Corpuscular Hemoglobin 29.2 pg (27-31); Mean Corpuscular Hgb Conc 32.9 g/dl (32-36); Mean Platelet Volume 9.2 fl (8-12.5); Neutrophil # 6.1 K/mm3 (1.3-6.0); Neutrophil % 65.7 % (42-75.0); Platelet Count 271 K/mm3 (150-450); Red Cell Distribution Width 14.4 % (11.5-14.0); White Blood Count 9.2 K/mm3 (4.0-10.5)
[2019-08-19 07:38] LABS: Albumin * 2.9 gm/dl (3.4-5.0); Anion Gap 13.4 mmol/L (6.8-13.8); BUN/Creatinine Ratio 15.8 (9.0-21.6); Bilirubin, Total 0.3 mg/dL (0.0-1.1); Ca. Corrected For Albumin 9.1 mg/dL (8.4-10.2); Calcium * 8.5 mg/dL (7.9-10.9); Carbon Dioxide 29.5 mmol/L (24-32.6); Potassium 3.9 mmol/L (3.4-4.6); Total Protein 7.2 gm/dL (6.2-8.2)
[2019-08-19] MEDS: ASPIRIN 81 MG TABLET.DR PO SCH (09:31)
[2019-08-19] MEDS: AZITHROMYCIN 250 MG TABLET PO SCH (09:31)
--- NOTE | 2019-08-19 12:08 | PN ---
Subjective - Date and Time Seen Date: 08/19/19 Time: 10:00 Subjective Narrative: Lesvia continues to have a loose cough, expiratory wheezes, scattered rhonchi. She continues to require oxygen as well. They are questioning as to whether she is getting more IV antibiotics or changing to oral. She will get 1 more dose of IV antibiotics today and then switch to oral tomorrow morning. She has no other complaints or requests. Objective - Review of Systems Generalized/Overall Review: Reports: No Symptoms Reported, Weakness, Malaise. Denies: Chills, Fever EENTM: Reports: No Symptoms Reported Respiratory: Reports: Cough, Shortness of Breath, Wheezing Cardiac: Reports: No Symptoms Reported Abdominal: Reports: No Symptoms Reported Genitourinary Symptoms: Reports: No Symptoms Reported Musculoskeletal Complaints: Reports: No Symptoms Reported Neurological: Reports: No Symptoms Reported Skin: Reports: No Symptoms Reported Endocrine: Reports: No Symptoms Reported Misc: All systems neg except as marked - Vitals Vitals: Last Vital Signs Temp 36.2 C 08/19/19 11:00 Pulse 100 08/19/19 11:00 Resp 20 08/19/19 11:00 BP 120/70 08/19/19 11:00 Pulse Ox 97 08/19/19 11:00 - Abnormal Lab Findings Abnormal Lab Findings: Abnormal Lab Results 08/19/19 08/19/19 Range/Units 07:16 07:16 RBC 3.80 L (4.2-5.4) M/mm3 Hgb 11.1 L (12.5-16.0) gm/dL Hct 33.7 L (37.0-47.0) % RDW 14.4 H (11.5-14.0) % Immature Gran % (Auto) 0.80 H (0.001-0.429) % Immature Gran # (Auto) 0.07 H (0.000-0.0310) K/mm3 Monocytes % 10.2 H (0.0-9) % Neutrophils # 6.1 H (1.3-6.0) K/mm3 Albumin 2.9 L (3.4-5.0) gm/dl - Exam Constitutional: Present: Alert, Oriented x3, Cooperative, Well developed, Well nourished, No distress ENT Exam: Present: normal ENT inspection, hearing grossly normal, pharynx normal, TMs normal Neck: Present: non-tender, full range of motion, supple, normal inspection Breasts: Present: Exam deferred Respiratory: Present: chest non-tender, no accessory muscle use, rhonchi, wheezing, expiration (prolonged) Cardiovascular/Chest: Present: normal peripheral pulses, regular rate, rhythm, no chest tenderness, no edema, no JVD, no murmur, no rub Abdomen: Present: Normal bowel sounds, soft, nontender, nondistended, no rebound tenderness, no hepatospenomegaly, no masses /Rectal: Present: Exam deferred Extremity: Present: normal range of motion, non-tender, normal inspection, no pedal edema, no calf tenderness, normal capillary refill Skin Exam: Present: normal color, warm/dry, no cyanosis Lymphatic: Present: no adenopathy Neurologic: Present: chef de froid II-XII nml as tested Appearance: Present: appropriate appearance, appropriate insight, neat, no memor y impairment Eye contact: Present: cooperative, good eye contact, normal speech Thoughts: Present: normal thought pattern, no apparent hallucination Assessment/Plan Plan Narrative: Continue IV Rocephin and oral azithromycin. Continue respiratory therapy treatments Repeat chest x-ray tomorrow morning Instructed patient and on nebulizer treatments - Problems/Diagnosis (1) Pneumonia Problem: Acute Qualifiers: Pneumonia type: due to unspecified organism Laterality: unspecified laterality Lung location: unspecified part of lung Qualified Code(s): J18.9 - Pneumonia, unspecified organism (2) Hypoxemia Problem: Acute (3) Anxiety Problem: Chronic (4) CHF (congestive heart failure) Problem: Acute Qualifiers: Heart failure type: diastolic Heart failure chronicity: acute Qualified Code(s): I50.31 - Acute diastolic (congestive) heart failure
[2019-08-19] MEDS: AMITRIPTYLINE HCL PO SCH ×2 (19:39)
[2019-08-20] MEDS: FAMOTIDINE 20 MG TABLET PO SCH (07:33)
[2019-08-20] MEDS: PANTOPRAZOLE SODIUM 40 MG TABLET.EC PO SCH (07:33)
[2019-08-20] MEDS: LEVOTHYROXINE SODIUM 88 MCG TABLET PO SCH (07:34)
[2019-08-20] MEDS ORDERED: CEFDINIR 300 MG CAPSULE PO SCH (09:00)
[2019-08-20] MEDS: AZITHROMYCIN 250 MG TABLET PO SCH (09:29)
[2019-08-20] MEDS: ASPIRIN 81 MG TABLET.DR PO SCH (09:29)
--- NOTE | 2019-08-20 13:19 | DS ---
Date of Discharge:: 08/20/19 Description of Stay: Lesvia is a 74 yo female admitted for acute respiratory failure secondary to pneumonia. She was placed on oxygen to keep sats >90% and pneumonia was treated with azithromycin and rocephin. She was given breathing treatments with albuterol and with treatment she gradually improved. She was switched to oral antibiotics with azithromycin and cefdinir. She was weaned off of oxygen and was able to keep her oxygen saturation >90% on room air even during activity and overnight. She will be given an albuterol inhaler to use at least twice a day for the next week but may use this every 4 hours prn for shortness of breath and wheeze. After a week this can be changed to just as needed. She will follow up with me in clinic in a week. Procedures Performed: none Results and Findings: Pending Mircobiology Results 08/17/19 11:10 Blood Blood Culture - Preliminary NO GROWTH AFTER 48 HOURS 08/17/19 12:20 Blood Blood Culture - Preliminary NO GROWTH AFTER 48 HOURS Lab Pending Results 08/17/19 05:40: Sodium 138, Plasma Sodium 138, Potassium 3.8, Chloride 99, Carbon Dioxide 27.7, Anion Gap 15.1 H, BUN 9, Creatinine 0.69, Est GFR (Non-Af Amer) 88 D, BUN/Creatinine Ratio 13.0, Random Glucose 92, Calcium 8.6 08/17/19 05:40: WBC 10.0, RBC 3.99 L, Hgb 11.7 L, Hct 35.3 L, MCV 88.5, MCH 2 9.3, MCHC 33.1, RDW 14.4 H, Plt Count 284, MPV 9.7, Immature Gran % (Auto) 0.40, Immature Gran # (Auto) 0.04 H, Neutrophils % 73.2, Lymphocytes % 15.2 L, Monocytes % 8.7, Eosinophils % 2.2, Basophils % 0.3, Nucleated RBC % 0.0, Neutrophils # 7.3 H, Lymphocytes # 1.52, Monocytes # 0.9, Eosinophils # 0.2, Absolute Basophils 0.0 08/17/19 11:10: WBC 14.7 H D, RBC 4.16 L, Hgb 12.2 L, Hct 36.7 L, MCV 88.2, MCH 29.3, MCHC 33.2, RDW 13.9, Plt Count 318, MPV 9.6, Immature Gran % (Auto) 0.70 H, Immature Gran # (Auto) 0.10 H, Neutrophils % 83.9 H, Lymphocytes % 9.1 L, Monocytes % 5.2, Eosinophils % 0.8, Basophils % 0.3, Nucleated RBC % 0.0, Neutrophils # 12.3 H, Lymphocytes # 1.34 L, Monocytes # 0.8, Eosinophils # 0.1, Absolute Basophils 0.0 08/17/19 11:10: Sodium 137, Plasma Sodium 137, Potassium 3.8, Chloride 99, Carbon Dioxide 30.0, Anion Gap 11.8, BUN 11, Creatinine 0.90, Est GFR (Non-Af Amer) 65 D, BUN/Creatinine Ratio 12.2, Random Glucose 126 H D, Calcium 8.6, Calcium Adj for Albumin 8.8, Total Bilirubin 0.3, AST 22, ALT 19, Alkaline Phosphatase 94, Troponin I Less than 0.017, Total Protein 7.5, Albumin 3.4 08/17/19 11:10: B-Natriuretic Peptide 334 08/17/19 13:50: Sodium 136, Plasma Sodium 136, Potassium 3.7, Chloride 97, Carbon Dioxide 28.8, Anion Gap 13.9 H, BUN 10, Creatinine 1.00, Est GFR (Non-Af Amer) 57 L, BUN/Creatinine Ratio 10.0, Random Glucose 127 H, Calcium 8.5 08/17/19 13:50: Lactic Acid, Venous 3.0 H* 08/17/19 13:50: WBC 14.5 H, RBC 3.96 L, Hgb 11.6 L, Hct 35.2 L, MCV 88.9, MCH 29.3, MCHC 33.0, RDW 14.1 H, Plt Count 309, MPV 9.5, Immature Gran % (Auto) 0.30, Immature Gran # (Auto) 0.05 H, Neutrophils % 84.2 H, Lymphocytes % 10.3 L, Monocytes % 4.5, Eosinophils % 0.4, Basophils % 0.3, Nucleated RBC % 0.0, Neutrophils # 12.2 H, Lymphocytes # 1.49 L, Monocytes # 0.7, Eosinophils # 0.1, Absolute Basophils 0.0 08/17/19 16:25: Lactic Acid, Venous 1.6 08/19/19 07:16: WBC 9.2 D, RBC 3.80 L, Hgb 11.1 L, Hct 33.7 L, MCV 88.7, MCH 29.2, MCHC 32.9, RDW 14.4 H, Plt Count 271, MPV 9.2, Immature Gran % (Auto) 0.80 H, Immature Gran # (Auto) 0.07 H, Neutrophils % 65.7, Lymphocytes % 21.1, Monocytes % 10.2 H, Eosinophils % 1.7, Basophils % 0.5, Nucleated RBC % 0.0, Neutrophils # 6.1 H, Lymphocytes # 1.94, Monocytes # 0.9, Eosinophils # 0.2, Absolute Basophils 0.1 08/19/19 07:16: Sodium 139, Plasma Sodium 139, Potassium 3.9, Chloride 100, Car bon Dioxide 29.5, Anion Gap 13.4, BUN 12, Creatinine 0.76, Est GFR (Non-Af Amer) 79 D, BUN/Creatinine Ratio 15.8, Random Glucose 92, Calcium 8.5, Calcium Adj for Albumin 9.1, Total Bilirubin 0.3, AST 25, ALT 21, Alkaline Phosphatase 75, Total Protein 7.2, Albumin 2.9 L Discharge Location: Home Disposition: Home self-care Condition: Good Discharge Activity: Activity as tolerated Discharge Diet: General/regular food Referrals: Matthew Berman DO [Primary Care Provider] - One Week Problem Oriented Discharge Instructions to Patient/Family: Community-Acquired Pneumonia, Adult, [id number] Additional Patient Instructions (free text): TCM at Discharge Prescriptions (Any new or edited meds): Azithromycin 250 mg PO DAILY #3 tab Transmission Status: Pending to [place], [place] Cefdinir [Omnicef] 300 mg PO BID #10 cap Transmission Status: Received by [place], [place] Albuterol Sulfate [Proair Hfa] 2 puff INHALATION BID #1 inhaler Transmission Status: Pending to [place], [place] Complete Home Medications List: Complete Home Medication List: famotidine 20 mg tablet 20 mg PO BID #180 tab 04/18/18 alprazolam 0.5 mg tablet 0.5 mg PO BID PRN #180 tab 08/15/18 acetaminophen 300 mg-codeine 60 mg tablet 1 tab PO Q6H PRN #360 tab 03/06/19 pantoprazole 40 mg tablet,delayed release 40 mg PO BID #180 tab 05/02/19 levothyroxine 88 mcg tablet 88 mcg PO DAILY #90 tab 08/13/19 Amitriptyline HCl 125 mg PO HS 08/17/19 Aspirin [Aspir-Low] 81 mg PO DAILY 08/17/19 Albuterol Sulfate [Proair Hfa] 2 puff INHALATION BID #1 inhaler 08/20/19 Azithromycin 250 mg PO DAILY #3 tab 08/20/19 Azithromycin [Zithromax] 250 mg PO DAILY #3 tab 08/20/19 Cefdinir [Omnicef] 300 mg PO BID #10 cap 08/20/19
[2019-08-20 14:20] VITALS: BP 134/56
== END 2019-08-20 14:12 | disposition home or self-care (01) | DRG 193 ==
LOC: ER 10:49 → MS 10:49 → OBSVTOIN 12:11 → MS 12:35
PROVIDERS: ADMIT Family Medicine; ATTEND Family Medicine
DX: I50.31 Acute diastolic (congestive) heart failure; E03.9 Hypothyroidism, unspecified; J18.9 Pneumonia, unspecified organism; K21.9 Gastro-esophageal reflux disease without esophagitis; F41.9 Anxiety disorder, unspecified; I11.0 Hypertensive heart disease with heart failure; E78.5 Hyperlipidemia, unspecified; J96.01 Acute respiratory failure with hypoxia
CPT/HCPCS: 36415; 71020; 71046; 80048; 80053; 83519; 83605; 83880; 84484; 85025; 87040; 93005; 94640; 94664; 94760; 96365; 96366; 99284; G0378

== ENCOUNTER 2019-11-09 11:00 | Inpatient (IN) ==
[2019-11-09] MEDS ORDERED: ALBUTEROL SULFATE 2.5 MG/0.5 ML VIAL.NEB IH ONE (11:30)
--- NOTE | 2019-11-09 11:42 | ERNOTE ---
Dyspnea - General Time Seen by Provider: 11/09/19 11:18 Source: patient, family Exam Limitations: no limitations - Immun/Allergies/Home Medications Immunizations: IMMUNIZATION HX Immunizations Up to Date Yes History of Influenza Vaccine Yes Hx Pneumococcal Vaccination Yes Allergies/Adverse Reactions: Allergies escitalopram oxalate [From Lexapro] Allergy (Severe, Verified 11/09/19 11:03) lips swelling, difficulty swollowing sertraline [From Zoloft] Allergy (Intermediate, Verified 11/09/19 11:03) Lip/tongue swelling Home Medications: HOME MEDICATIONS famotidine 20 mg tablet 20 mg PO BID #180 tab 04/18/18 [Last Taken 11/08/19] acetaminophen 300 mg-codeine 60 mg tablet 1 tab PO Q6H PRN #360 tab 03/06/19 [Last Taken 08/16/19] Amitriptyline HCl 125 mg PO HS 08/17/19 [Last Taken 11/08/19] Aspirin [Aspir-Low] 81 mg PO DAILY 08/17/19 [Last Taken 11/08/19] Albuterol Sulfate [Proair Hfa] 2 puff INHALATION BID #1 inhaler 08/20/19 [Last Taken Unknown] duloxetine 30 mg capsule,delayed release 30 mg PO DAILY #90 cap 08/27/19 [Last Taken 11/08/19] alprazolam 0.5 mg tablet 0.5 mg PO BID PRN #180 tab 09/28/19 [Last Taken Unknown] levothyroxine 88 mcg tablet 88 mcg PO DAILY #90 tab 11/09/19 [Last Taken 11/08/19] pantoprazole 40 mg tablet,delayed release 40 mg PO BID #180 tab 11/09/19 [Last Taken 11/08/19] - History of Present Illness Narrative: Patient and report that she had a 'reflux attack' last night around 22:00 (heart burn nausea, no vomiting). This morning around 08:00 she vomited and started to have a fever of 102, only a slight cough, slight dyspnoea. Her checked her oxygen and it was only in the low 80's so he decided to bring her in. He gave her tylenol which she kept down, no vomiting since She was admitted for similar symptom and pneumonia two months ago, was off oxygen, has a remote history of smoking, no diagnosis of chronic lung disease, had one other episode of pneumonia two years ago Date (Duration): 11/09/19 Time (Timing): 08:00 Treatment JOINTER MACHINE: none Initiating event: Denies: upper resp illness, out of meds Frequency of episodes: Reports: occassional episodes Modifying Factors - (Improves): Reports: rest Modifying Factors (Worsens): Reports: activity Associated Symptoms-Dyspnea: Reports: fever/chills, cough. Denies: chest pain/discomfort, dizziness, tingling of hands/face Prior Treatment: Reports: recently seen, previous episodes. Denies: currently on antibiotics Review of Systems - Review of Systems Constitutional: Present: fever, chills ENT: Absent: nose congestion, nasal drainage, sore throat Respiratory: Present: shortness of breath, cough Cardiology: Absent: chest pain Gastrointestinal/Abdominal: Present: vomiting. Absent: abdominal pain, other Genitourinary: Absent: frequency, dysuria Musculoskeletal: Absent: back pain Neurological: Absent: headache Medical History (Last Reviewed 11/09/19 @ 11:41 by Vanna Navarro MD) Trigger finger of right hand (Chronic) 3rd and 5th Rheumatoid arteritis (Chronic) hands Migraine (Chronic) Hypothyroidism (Chronic) Hypertension (Chronic) Hyperlipidemia (Chronic) GERD (gastroesophageal reflux disease) (Chronic) Anxiety (Chronic) Fever (Acute) Pneumonia (Acute) Lactic acid increased (Acute) Sepsis (Acute) Migraine (Chronic) HLD (hyperlipidemia) (Chronic) GERD (gastroesophageal reflux disease) (Chronic) Hypothyroidism (Chronic) Anxiety (Chronic) Surgical History: Surgical History (Last Reviewed 11/09/19 @ 11:41 by Vanna Navarro MD) History of Dot fundoplication Onset Date: ~1994 [place] History of colonoscopy Onset Date: ~06/13/17 CLOtest negative History of cystocele Onset Date: ~1997 History of esophagogastroduodenoscopy (EGD) Onset Date: ~05/19/16 [facility]omas[facility]-mild chronic gastritis, Lang's, chronic reflux esophagitis. '16 Sh[facility]-chronic esophagitis w/Lang mucosa, no dysplasia. History of hammer toe correction Onset Date: ~1994 left and right 4th and 5th toes History of pubovaginal sling Onset Date: ~2008 History of tonsillectomy Onset Date: ~1961 History of total vaginal hysterectomy (TVH) Onset Date: Unknown Family History: Family History (Last Reviewed 11/09/19 @ 15:17 by Ingrid Levine RN) Sister Diabetes Hypertension Obesity Father , age 78 Myocardial infarction massive Diabetes CAD (coronary artery disease) Prostate disease Mother , age 83-d/c'd 4 weeks after her Cancer Pancreatic CA Aunt Diabetes Uncle Diabetes Social History: (Last Reviewed 11/09/19 @ 15:17 by Ingrid Levine RN) Social History: Marital status: household members: spouse current occupational status: retired Highest education level completed: some college, no degree Service: No Tobacco: Smoking Status: Former smoker Alcohol: alcohol intake: current Substance Use: substance use type: does not use Dietary Habits: caffeine: Yes Physical Exam - Physical Exam General Appearance: Present: wd/wn, alert, no apparent distress Head Exam: Present: normal inspection Eye Exam: Normal inspection: bilateral Ears, Nose, Throat: Present: normal pharynx Respiratory: Present: no respiratory distress, no accessory muscle use, decreased breath sounds, crackles, rales - both bases Cardiovascular/Chest: Present: tachycardia Gastrointestinal/Abdominal: Present: normal bowel sounds, nontender, nondistended, soft Extremity Exam: Present: no edema Neurological Exam: Present: alert, oriented, normal mood/affect Skin Exam: Present: normal color, warm/dry Progress - Results and Orders Patient's Lab Results:: I have reviewed the patient's lab results. - Vital Signs Patient's Vital Signs:: I have reviewed the patient's vital signs. Vital Signs: Vital Signs 11/09/19 11:00 Temperature 39.4 C H Pulse Rate 132 H Respiratory Rate 23 H Blood Pressure 123/52 O2 Sat by Pulse Oximetry 83 L - EKG EKG #1 EKG: NSR, nonspecific ST T wave changes, other - Q in inferior leads, unchanged from 08/2019 except for rate EKG read: Interp. by me - X-Ray X-Ray #1 X-Ray: chest - no acute changes Interpretation: Reviewed by me - Progress/Reassessment Chief Complaint: Dyspnea Progress Note-Subjective: 11/09/19 11:59 improved air movement after albuterol neb treatment, still rales on both bases 11/09/19 13:38 updated family and patient patient improved HR and RR O2 sat mid 90's on 2liters O2 trying to figure out if we have bed available 11/09/19 14:[address] Meir holm to admit for observation for pneumonia since there is concern for aspiration due to history of "reflux attack" will start on levaquin clinical diagnosis of pneumonia (fever, WBC, hypoxia) though CXR shows no infiltrate PSI 90 Departure Clinical Impression: Pneumonia Qualifiers: Pneumonia type: due to unspecified organism Laterality: unspecified laterality Lung location: unspecified part of lung Qualified Code(s): J18.9 - Pneumonia, unspecified organism - Departure Disposition: Still a patient Condition: Stable
[2019-11-09 11:46] LABS: Hematocrit 34.1 % (37.0-47.0); Hemoglobin 10.6 gm/dL (12.5-16.0); Mean Cell Volume 87.7 fl (78-100); Mean Corpuscular Hemoglobin 27.2 pg (27-31); Mean Corpuscular Hgb Conc 31.1 g/dl (32-36); Mean Platelet Volume 9.6 fl (8-12.5); Neutrophil # 13.3 K/mm3 (1.3-6.0); Neutrophil % 86.9 % (42-75.0); Platelet Count 341 K/mm3 (150-450); Red Blood Count 3.89 M/mm3 (4.2-5.4); Red Cell Distribution Width 12.9 % (11.5-14.0); White Blood Count 15.2 K/mm3 (4.0-10.5)
[2019-11-09 12:06] LABS: Albumin * 3.4 gm/dl (3.4-5.0); Anion Gap 9.8 mmol/L (6.8-13.8); BUN/Creatinine Ratio 12.5 (9.0-21.6); Bilirubin, Total 0.3 mg/dL (0.0-1.1); Ca. Corrected For Albumin 9.3 mg/dL (8.4-10.2); Calcium * 9.1 mg/dL (7.9-10.9); Carbon Dioxide 31.4 mmol/L (24-32.6); Potassium 3.2 mmol/L (3.4-4.6)
[2019-11-09] MEDS: NORMAL SALINE 1,000 ML IV PRN ×2 (12:57→16:51)
[2019-11-09] MEDS ORDERED: cefTRIAXone SODIUM 1,000 MG/100 ML BAG IV ONE (13:21)
[2019-11-09 13:51] LABS: Urine Bilirubin Negative (NEGATIVE); Urine Blood Negative /ul (NEGATIVE); Urine Ketone Negative (NEGATIVE); Urine Nitrite Negative (NEGATIVE); Urine Protein Negative (NEGATIVE); Urine Specific Gravity 1.015 SP.GR. (1.005-1.010); Urine Urobilinogen Normal (NORMAL)
[2019-11-09 14:15] LABS: Urine Appearance Clear (CLEAR); Urine Color Yellow
[2019-11-09 14:16] LABS: Urine Bacteria 2+; Urine RBC None Seen /hpf (0-5); Urine WBC TRACE /hpf (0-5)
[2019-11-09] MEDS ORDERED: LEVOFLOXACIN IN DEXTROSE 5 % 750 MG/150 ML BAG IV SCH (14:45)
[2019-11-09] MEDS ORDERED: ALBUTEROL SULFATE 2.5 MG/0.5 ML VIAL.NEB IH PRN (16:36)
[2019-11-09] MEDS: ALBUTEROL SULFATE/IPRATROPIUM 3 ML NEBU IH SCH (18:08)
[2019-11-09] MEDS ORDERED: ACETAMINOPHEN WITH CODEINE 1 EACH TABLET PO ONE (19:21)
[2019-11-09] MEDS: AMITRIPTYLINE HCL 25 MG TABLET PO SCH (19:36)
[2019-11-09] MEDS: PANTOPRAZOLE SODIUM 40 MG TABLET.EC PO SCH (20:12)
[2019-11-10] MEDS: ALBUTEROL SULFATE/IPRATROPIUM 3 ML NEBU IH SCH ×4 (00:15→18:08)
[2019-11-10 06:51] LABS: Hematocrit 27.2 % (37.0-47.0); Hemoglobin 8.5 gm/dL (12.5-16.0); Mean Cell Volume 88.6 fl (78-100); Mean Corpuscular Hemoglobin 27.7 pg (27-31); Mean Corpuscular Hgb Conc 31.3 g/dl (32-36); Mean Platelet Volume 9.5 fl (8-12.5); Platelet Count 268 K/mm3 (150-450); Red Blood Count 3.07 M/mm3 (4.2-5.4); Red Cell Distribution Width 13.3 % (11.5-14.0); White Blood Count 23.6 K/mm3 (4.0-10.5)
[2019-11-10] MEDS: LEVOTHYROXINE SODIUM 88 MCG TABLET PO SCH (06:54)
[2019-11-10] MEDS: PANTOPRAZOLE SODIUM 40 MG TABLET.EC PO SCH ×3 (06:54→20:03)
[2019-11-10] MEDS: NORMAL SALINE 1,000 ML IV PRN ×4 (06:55→23:31)
[2019-11-10] MEDS ORDERED: POTASSIUM CHLORIDE 40 MEQ/15 ML LIQUID PO ONE (07:00)
[2019-11-10 07:20] LABS: Total Cells Counted 100
[2019-11-10 07:23] LABS: Band 2 % (0-2.0); Lymphocyte 7 % (20-51); Monocyte 3 % (0-9); Neutrophil 88 % (42-75); Neutrophil # 20.8 K/mm3 (1.3-6.0)
[2019-11-10 07:24] LABS: Anisocytosis 1+; Spherocyte 1+
[2019-11-10 07:25] LABS: Platelet Estimate Normal (NORMAL)
[2019-11-10 07:41] LABS: Anion Gap 13.4 mmol/L (6.8-13.8); BUN/Creatinine Ratio 11.4 (9.0-21.6); Calcium * 7.9 mg/dL (7.9-10.9); Carbon Dioxide 23.1 mmol/L (24-32.6); Estimated Creat Clear 36.6; Potassium 3.5 mmol/L (3.4-4.6)
--- NOTE | 2019-11-10 08:50 | HP ---
Chief Complaint - Chief Complaint Date of Service: 11/10/19 Time of Service: 08:49 Chief Complaint: cough, fever, SOB History of Present Illness: 74-year-old female presented to the ER yesterday afternoon for shortness of breath, cough, fever. Patient felt fine the day before. Patient states that she has fairly severe acid reflux and felt like she might have aspirated gastric content overnight. Fever got as high as 102. pertinent lab work in the ER showed her to have a white count at 15.2 with a left shift. She also had a lactic acidosis of 2.2 which trended upward to 2.5. Chest x-ray obtained which did not show any acute cardiopulmonary process, no infiltrate seen. Patient was started on Levaquin for likely aspiration pneumonia and placed under observation. Aside from being febrile patient also had elevated heart rate init ially in the 120s to 130s. Found to be a sinus rhythm. She was started on IV fluids as well and transferred to the floor. Medical History (Last Reviewed 11/09/19 @ 15:15 by Ingrid Levine RN) Trigger finger of right hand (Chronic) 3rd and 5th Rheumatoid arteritis (Chronic) hands Migraine (Chronic) Hypothyroidism (Chronic) Hypertension (Chronic) Hyperlipidemia (Chronic) GERD (gastroesophageal reflux disease) (Chronic) Anxiety (Chronic) Fever (Acute) Pneumonia (Acute) Lactic acid increased (Acute) Sepsis (Acute) Migraine (Chronic) HLD (hyperlipidemia) (Chronic) GERD (gastroesophageal reflux disease) (Chronic) Hypothyroidism (Chronic) Anxiety (Chronic) Surgical History: Surgical History (Last Reviewed 11/09/19 @ 15:16 by Ingrid Levine RN) History of Dot fundoplication Onset Date: ~1994 [place] History of cystocele Onset Date: ~1997 History of esophagogastroduodenoscopy (EGD) Onset Date: ~05/19/16 '11 Tomasz-mild chronic gastritis, Lang's, chronic reflux esophagitis. '16 Shruthi-chronic esophagitis w/Lang mucosa, no dysplasia. History of hammer toe correction Onset Date: ~1994 left and right 4th and 5th toes History of pubovaginal sling Onset Date: ~2008 History of tonsillectomy Onset Date: ~1961 History of total vaginal hysterectomy (TVH) Onset Date: Unknown Family History: Family History (Last Reviewed 11/09/19 @ 15:17 by Ingrid Levine RN) Sister Diabetes Hypertension Obesity Father , age 78 Myocardial infarction massive Diabetes CAD (coronary artery disease) Prostate disease Mother , age 83-d/c'd 4 weeks after her Cancer Pancreatic CA Aunt Diabetes Uncle Diabetes Social History: (Last Reviewed 11/09/19 @ 15:17 by Ingrid Levine RN) Social History: Marital status: household members: spouse current occupational status: retired Highest education level completed: some college, no degree Service: No Tobacco: Smoking Status: Former smoker Alcohol: alcohol intake: current Substance Use: substance use type: does not use Dietary Habits: caffeine: Yes Review Of Systems (GEN) - Review of Systems Generalized/Overall Review: Present: Chills, Fever, Fatigue EENTM: Present: Nose Congestion. Absent: Eye Pain, Ear Pain - Yet infection peritonitis Respiratory: Present: Cough - He has an appointment to, Shortness of Breath, Wheezing Cardiac: Absent: Chest Pain, Edema, Palpitations Abdominal: Absent: Nausea, Vomiting Genitourinary: Present: No Symptoms Reported Musculoskeletal: Present: No Symptoms Reported Neurological: Present: No Symptoms Reported Skin: Present: No Symptoms Reported Immunizations: IMMUNIZATION HX Immunizations Up to Date Yes History of Influenza Vaccine Yes Hx Pneumococcal Vaccination Yes Allergies/Adverse Reactions: Allergies Allergy/AdvReac Type Severity Reaction Status Date / Time escitalopram oxalate Allergy Severe lips Verified 11/09/19 11:03 [From Lexapro] swelling, difficulty swollowing sertraline [From Zoloft] Allergy Intermediate Lip/tongue Verified 11/09/19 11:03 swelling Home Medications: HOME MEDICATIONS famotidine 20 mg tablet 20 mg PO BID #180 tab 04/18/18 [Last Taken 11/08/19] Amitriptyline HCl 125 mg PO HS 08/17/19 [Last Taken 11/08/19] Aspirin [Aspir-Low] 81 mg PO DAILY 08/17/19 [Last Taken 11/08/19] Albuterol Sulfate [Proair Hfa] 2 puff INHALATION BID #1 inhaler 08/20/19 [Last Taken Unknown] duloxetine 30 mg capsule,delayed release 30 mg PO DAILY #90 cap 08/27/19 [Last Taken 11/08/19] alprazolam 0.5 mg tablet 0.5 mg PO BID PRN #180 tab 09/28/19 [Last Taken Unknown] Acetaminophen with Codeine [Tylenol with Codeine #4 Tablet] 1 ea PO Q6H PRN 11/09/19 [Last Taken Unknown] levothyroxine 88 mcg tablet 88 mcg PO DAILY #90 tab 11/09/19 [Last Taken 11/08/19] pantoprazole 40 mg tablet,delayed release 40 mg PO BID #180 tab 11/09/19 [Last Taken 11/08/19] Exam - Exam Vital Signs: Vital Signs - Last Taken Temp 37.0 C 11/10/19 08:00 Pulse 101 H 11/10/19 08:00 Resp 20 11/10/19 08:00 BP 104/40 11/10/19 08:00 Pulse Ox 92 L 11/10/19 08:00 Constitutional: Present: Alert, Oriented x3 - Right wrist., Cooperative, Elderly ENT Exam: Absent: hard of hearing, nasal congestion, nasal drainage Eye Exam: bilateral eye: normal inspection, EOMI Neck: Present: non-tender, supple Breasts: Present: Exam deferred Respiratory: Present: no respiratory distress, rhonchi - slightly, RLL. Absent: accessory muscle use Cardiovascular/Chest: Present: no murmur, tachycardia Abdomen: Present: Normal bowel sounds, soft, nontender, nondistended Skin Exam: Present: normal color, warm/dry Appearance: Present: appropriate appearance, appropriate insight Eye contact: Present: cooperative, good eye contact Thoughts: Present: normal thought pattern, normal mood /affect Diagnostic Studies: Abnormal Lab Results 11/09/19 11/09/19 11/09/19 Range/Units 11:40 11:40 11:40 WBC 15.2 H (4.0-10.5) K/mm3 RBC 3.89 L (4.2-5.4) M/mm3 Hgb 10.6 L (12.5-16.0) gm/dL Hct 34.1 L (37.0-47.0) % MCHC 31.1 L (32-36) g/dl Immature Gran # (Auto) 0.05 H (0.000-0.0310) K/mm3 Neutrophils % 86.9 H (42-75.0) % Neutrophils % (Manual) (42-75) % Lymphocytes % 5.5 L (20-51) % Lymphocytes % (Manual) (20-51) % Neutrophils # 13.3 H (1.3-6.0) K/mm3 Neutrophils # (Manual) (1.3-6.0) K/mm3 Lymphocytes # 0.84 L (1.5-3.5) k/mm3 pO2 (83.0-108.0) mmHg Total CO2 (19.0-24.0) mmol/L Potassium 3.2 L (3.4-4.6) mmol/L Carbon Dioxide (24-32.6) mmol/L Est GFR (Non-Af Amer) 55 L D (60-130) mL/min Random Glucose 118 H (70-110) mg/dL Lactic Acid, Venous 2.2 H* (0.4-2.0) mmol/L ALT 13 L (19-67) U/L Urine WBC (0-5) /hpf Urine Bacteria (NONE) 11/09/19 11/09/19 11/09/19 Range/Units 11:47 12:55 14:45 WBC (4.0-10.5) K/mm3 RBC (4.2-5.4) M/mm3 Hgb (12.5-16.0) gm/dL Hct (37.0-47.0) % MCHC (32-36) g/dl Immature Gran # (Auto) (0.000-0.0310) K/mm3 Neutrophils % (42-75.0) % Neutrophils % (Manual) (42-75) % Lymphocytes % (20-51) % Lymphocytes % (Manual) (20-51) % Neutrophils # (1.3-6.0) K/mm3 Neutrophils # (Manual) (1.3-6.0) K/mm3 Lymphocytes # (1.5-3.5) k/mm3 pO2 74.4 L (83.0-108.0) mmHg Total CO2 25.0 H (19.0-24.0) mmol/L Potassium (3.4-4.6) mmol/L Carbon Dioxide (24-32.6) mmol/L Est GFR (Non-Af Amer) (60-130) mL/min Random Glucose (70-110) mg/dL Lactic Acid, Venous 2.5 H* (0.4-2.0) mmol/L ALT (19-67) U/L Urine WBC Trace H (0-5) /hpf Urine Bacteria 2+ H (NONE) 11/10/19 11/10/19 11/10/19 Range/Units 06:45 07:24 07:24 WBC 23.6 H D (4.0-10.5) K/mm3 RBC 3.07 L (4.2-5.4) M/mm3 Hgb 8.5 L (12.5-16.0) gm/dL Hct 27.2 L (37.0-47.0) % MCHC 31.3 L (32-36) g/dl Immature Gran # (Auto) (0.000-0.0310) K/mm3 Neutrophils % (42-75.0) % Neutrophils % (Manual) 88 H (42-75) % Lymphocytes % (20-51) % Lymphocytes % (Manual) 7 L (20-51) % Neutrophils # (1.3-6.0) K/mm3 Neutrophils # (Manual) 20.8 H (1.3-6.0) K/mm3 Lymphocytes # (1.5-3.5) k/mm3 pO2 (83.0-108.0) mmHg Total CO2 (19.0-24.0) mmol/L Potassium (3.4-4.6) mmol/L Carbon Dioxide 23.1 L (24-32.6) mmol/L Est GFR (Non-Af Amer) 54 L (60-130) mL/min Random Glucose 114 H (70-110) mg/dL Lactic Acid, Venous 3.5 H* (0.4-2.0) mmol/L ALT (19-67) U/L Urine WBC (0-5) /hpf Urine Bacteria (NONE) Microbiology 11/09/19 13:47 Urine Culture - Preliminary Urine,Clean Catch No Growth Laboratory Results WBC 23.6 K/mm3 (4.0-10.5) H D 11/10/19 06:45 RBC 3.07 M/mm3 (4.2-5.4) L 11/10/19 06:45 Hgb 8.5 gm/dL (12.5-16.0) L 11/10/19 06:45 Hct 27.2 % (37.0-47.0) L 11/10/19 06:45 MCV 88.6 fl (78-100) 11/10/19 06:45 MCH 27.7 pg (27-31) 11/10/19 06:45 MCHC 31.3 g/dl (32-36) L 11/10/19 06:45 RDW 13.3 % (11.5-14.0) 11/10/19 06:45 Plt Count 268 K/mm3 (150-450) 11/10/19 06:45 MPV 9.5 fl (8-12.5) 11/10/19 06:45 Immature Gran % (Auto) 0.30 % (0.001-0.429) 11/09/19 11:40 Immature Gran # (Auto) 0.05 K/mm3 (0.000-0.0310) H 11/09/19 11:40 Neutrophils % 86.9 % (42-75.0) H 11/09/19 11:40 Neutrophils % (Manual) 88 % (42-75) H 11/10/19 06:45 Band Neuts % (Manual) 2 % (0-2.0) 11/10/19 06:45 Lymphocytes % 5.5 % (20-51) L 11/09/19 11:40 Lymphocytes % (Manual) 7 % (20-51) L 11/10/19 06:45 Monocytes % 5.8 % (0.0-9) 11/09/19 11:40 Monocytes % (Manual) 3 % (0-9) 11/10/19 06:45 Eosinophils % 1.0 % (0.0-3.0) 11/09/19 11:40 Basophils % 0.5 % (0.0-1.0) 11/09/19 11:40 Nucleated RBC % 0.0 k/mm3 (0-1) 11/09/19 11:40 Neutrophils # 13.3 K/mm3 (1.3-6.0) H 11/09/19 11:40 Neutrophils # (Manual) 20.8 K/mm3 (1.3-6.0) H 11/10/19 06:45 Lymphocytes # 0.84 k/mm3 (1.5-3.5) L 11/09/19 11:40 Lymphocytes # (Manual) 1.7 k/mm3 (1.5-3.5) 11/10/19 06:45 Monocytes # 0.9 k/mm3 (0.0-1.0) 11/09/19 11:40 Monocytes # (Manual) 0.7 k/mm3 (0.0-1.0) 11/10/19 06:45 Eosinophils # 0.2 k/mm3 (0.0-0.7) 11/09/19 11:40 Absolute Basophils 0.1 k/mm3 (0.0-0.1) 11/09/19 11:40 Platelet Estimate Normal (NORMAL) 11/10/19 06:45 Anisocytosis 1+ 11/10/19 06:45 Spherocytes 1+ 11/10/19 06:45 pCO2 39.6 mmHg (32.0-45.0) 11/09/19 11:47 pO2 74.4 mmHg (83.0-108.0) L 11/09/19 11:47 HCO3 23.8 mmol/L (21.0-28.0) 11/09/19 11:47 Total CO2 25.0 mmol/L (19.0-24.0) H 11/09/19 11:47 Base Excess -0.9 mmol/L (-2.0-3.0) 11/09/19 11:47 ABG pH 7.40 (7.35-7.45) 11/09/19 11:47 ABG O2 Sat (Measured) 95.0 % (94.0-98.0) 11/09/19 11:47 Sodium 139 mmol/L (132-142) 11/10/19 07:24 Plasma Sodium 139 mmol/L (130-142) 11/10/19 07:24 Potassium 3.5 mmol/L (3.4-4.6) 11/10/19 07:24 Chloride 106 mmol/L (97-106) 11/10/19 07:24 Carbon Dioxide 23.1 mmol/L (24-32.6) L 11/10/19 07:24 Anion Gap 13.4 mmol/L (6.8-13.8) 11/10/19 07:24 BUN 12 mg/dL (3-23) 11/10/19 07:24 Creatinine 1.05 mg/dL (0.4-1.4) 11/10/19 07:24 Est GFR (Non-Af Amer) 54 mL/min (60-130) L 11/10/19 07:24 BUN/Creatinine Ratio 11.4 (9.0-21.6) 11/10/19 07:24 Random Glucose 114 mg/dL (70-110) H 11/10/19 07:24 Lactic Acid, Venous 3.5 mmol/L (0.4-2.0) H* 11/10/19 07:24 Calcium 7.9 mg/dL (7.9-10.9) 11/10/19 07:24 Calcium Adj for Albumin 9.3 mg/dL (8.4-10.2) 11/09/19 11:40 Total Bilirubin 0.3 mg/dL (0.0-1.1) 11/09/19 11:40 AST 21 U/L (0-48) 11/09/19 11:40 ALT 13 U/L (19-67) L 11/09/19 11:40 Alkaline Phosphatase 64 U/L (50-170) 11/09/19 11:40 B-Natriuretic Peptide 135 pg/mL (5-550) 11/09/19 11:40 Total Protein 7.0 gm/dL (6.2-8.2) 11/09/19 11:40 Albumin 3.4 gm/dl (3.4-5.0) 11/09/19 11:40 Urine Color Yellow 11/09/19 12:55 Urine Appearance Clear (CLEAR) 11/09/19 12:55 Urine pH 6.0 pH (5.0-7.0) 11/09/19 12:55 Ur Specific Charlo 1.015 SP.GR. (1.005-1.010) 11/09/19 12:55 Urine Protein Negative mg/dL (NEGATIVE) 11/09/19 12:55 Urine Glucose (UA) Negative mg/dL (NEGATIVE) 11/09/19 12:55 Urine Ketones Negative mg/dL (NEGATIVE) 11/09/19 12:55 Urine Blood Negative /ul (NEGATIVE) 11/09/19 12:55 Urine Nitrate Negative (NEGATIVE) 11/09/19 12:55 Urine Bilirubin Negative mg/dl (NEGATIVE) 11/09/19 12:55 Urine Urobilinogen Normal EU/dl (NORMAL) 11/09/19 12:55 Ur Leukocyte Esterase Negative /ul (NEGATIVE) 11/09/19 12:55 Urine RBC None seen /hpf (0-5) 11/09/19 12:55 Urine WBC Trace /hpf (0-5) H 11/09/19 12:55 Ur Epithelial Cells 0-5 /hpf (0-5) 11/09/19 12:55 Urine Bacteria 2+ (NONE) H 11/09/19 12:55 Urine Culture Comments Culture to follow 11/09/19 12:55 Chlamy pneumoniae PCR Not detected (NotDetected) 11/09/19 14:15 Adenovirus (PCR) Not detected (NotDetected) 11/09/19 14:15 B. pertussis DNA (PCR) Not detected (NotDetected) 11/09/19 14:15 Coronavirus OC43 (PCR) Not detected (NotDetected) 11/09/19 14:15 Coronavirus HKU1 (PCR) Not detected (NotDetected) 11/09/19 14:15 Coronavirus 229E (PCR) Not detected (NotDetected) 11/09/19 14:15 Coronavirus NL63 (PCR) Not detected (NotDetected) 11/09/19 14:15 Human Metapneumovir PCR Not detected (NotDetected) 11/09/19 14:15 Influenza A (H1) PCR Not detected (NotDetected) 11/09/19 14:15 Influenza A (H1N1) PCR Not detected (NotDetected) 11/09/19 14:15 Influenza A (H3) PCR Not detected (NotDetected) 11/09/19 14:15 Influenza Type A Ag Negative (NEGATIVE) 11/09/19 11:38 Influenza Type B Ag Negative (NEGATIVE) 11/09/19 11:38 Influenza B (RT-PCR) Not detected (NotDetected) 11/09/19 14:15 M. pneumoniae (PCR) Not detected (NotDetected) 11/09/19 14:15 Parainfluenza 1 (PCR) Not detected (NotDetected) 11/09/19 14:15 Parainfluenza 2 (PCR) Not detected (NotDetected) 11/09/19 14:15 Parainfluenza 3 (PCR) Not detected (NotDetected) 11/09/19 14:15 Parainfluenza 4 (PCR) Not detected (NotDetected) 11/09/19 14:15 RSV (PCR) Not detected (NotDetected) 11/09/19 14:15 Rhinovirus (PCR) Not detected (NotDetected) 11/09/19 14:15 Assessment/Plan - Assessment/Plan (1) Aspiration pneumonia Assessment: Suspected, patient really started on Levaquin. White count increase overnight as well as lactic acid. We will stop Levaquin and started on Unasyn and Flagyl. Repeat CBC in the morning. Repeat lactic acid this afternoon Problem: Suspected (2) Hypoxemia Assessment: Patient is required 6 oxygen supplementation via nasal cannula since arrival and overnight. Currently off oxygen and maintaining sats above 90. We will wean her as tolerated. Patient did not require oxygen at home Problem: Acute (3) Hypertension Assessment: Blood pressure stable, restarted home meds Problem: Chronic (4) Lactic acid increased Assessment: Increased overnight. Patient has been on fluids appropriately, received a bolus in the ER. Patient did appear to fail outpatient antibiotics with Levaquin. Antibiotic changes made, increase fluids from 150 to 250ml per hour. Repeat lactic acid this afternoon Problem: Acute (5) GERD (gastroesophageal reflux disease) Assessment: Continue antacid Problem: Chronic (6) Leukocytosis Assessment: Monitor, repeat CBC tomorrow. Switched abx. Problem: Acute
[2019-11-10] MEDS ORDERED: PANTOPRAZOLE SODIUM 40 MG TABLET.EC PO SCH (09:00)
[2019-11-10] MEDS: DULoxetine HCL 30 MG CAPSULE.SA PO SCH (09:07)
[2019-11-10] MEDS: FAMOTIDINE 20 MG TABLET PO SCH ×2 (09:07→20:06)
[2019-11-10] MEDS: AMPICILLIN SODIUM/SULBACTAM NA 3 GM in NORMAL SALINE 100 ML IV SCH ×3 (09:07→20:06)
[2019-11-10] MEDS: ASPIRIN 81 MG TABLET.DR PO SCH (09:07)
[2019-11-10] MEDS: metroNIDAZOLE/SODIUM CHLORIDE 500 MG/100 ML BAG IV SCH ×2 (09:44→16:09)
[2019-11-10] MEDS: ACETAMINOPHEN 325 MG TABLET PO PRN (16:04)
[2019-11-10] MEDS: AMITRIPTYLINE HCL 25 MG TABLET PO SCH (17:20)
[2019-11-10] MEDS ORDERED: AMITRIPTYLINE HCL PO SCH (21:00)
[2019-11-11] MEDS: ALBUTEROL SULFATE/IPRATROPIUM 3 ML NEBU IH SCH ×3 (00:34→18:21)
[2019-11-11] MEDS: metroNIDAZOLE/SODIUM CHLORIDE 500 MG/100 ML BAG IV SCH ×3 (01:10→16:00)
[2019-11-11] MEDS: ACETAMINOPHEN 325 MG TABLET PO PRN ×2 (01:16→09:02)
[2019-11-11] MEDS: AMPICILLIN SODIUM/SULBACTAM NA 3 GM in NORMAL SALINE 100 ML IV SCH ×4 (02:51→20:26)
[2019-11-11 05:59] LABS: Hematocrit 24.9 % (37.0-47.0); Mean Cell Volume 88.3 fl (78-100); Mean Corpuscular Hemoglobin 27.7 pg (27-31); Mean Corpuscular Hgb Conc 31.3 g/dl (32-36); Mean Platelet Volume 10.3 fl (8-12.5); Neutrophil # 16.7 K/mm3 (1.3-6.0); Neutrophil % 84.3 % (42-75.0); Platelet Count 222 K/mm3 (150-450); Red Blood Count 2.82 M/mm3 (4.2-5.4); Red Cell Distribution Width 13.5 % (11.5-14.0); White Blood Count 19.8 K/mm3 (4.0-10.5)
[2019-11-11 06:02] LABS: Hemoglobin 7.8 gm/dL (12.5-16.0)
[2019-11-11] MEDS: NORMAL SALINE 1,000 ML IV PRN ×2 (06:08→11:15)
[2019-11-11] MEDS: PANTOPRAZOLE SODIUM 40 MG TABLET.EC PO SCH ×2 (07:41→16:01)
[2019-11-11] MEDS: LEVOTHYROXINE SODIUM 88 MCG TABLET PO SCH (07:41)
[2019-11-11] MEDS: FAMOTIDINE 20 MG TABLET PO SCH ×2 (08:51→20:27)
[2019-11-11] MEDS: DULoxetine HCL 30 MG CAPSULE.SA PO SCH (08:51)
[2019-11-11] MEDS: ASPIRIN 81 MG TABLET.DR PO SCH (08:51)
[2019-11-11] MEDS ORDERED: METOPROLOL TARTRATE 1 MG/ML AMPUL IV ONE (14:49)
--- NOTE | 2019-11-11 14:53 | PN ---
Subjective - Date and Time Seen Date: 11/11/19 Time: 14:42 Subjective Narrative: She did well overnight without any acute events. Her vital signs have been stable and she is afebrile. She is feeling better today than she was yesterday. We had switched her antibiotics up as her white count elevated, white count decreased today compared to yesterday. Lactic acid returned to normal. She is no longer coughing or having shortness of breath. Objective - Review of Systems Generalized/Overall Review: Denies: Weakness, Chills, Fever EENTM: Reports: No Symptoms Reported Respiratory: Denies: Cough, Shortness of Breath, Wheezing Cardiac: Denies: Chest Pain, Edema, Palpitations Abdominal: Reports: No Symptoms Reported Genitourinary Symptoms: Reports: No Symptoms Reported Neurological: Reports: No Symptoms Reported Skin: Reports: No Symptoms Reported - Vitals Vitals: Last Vital Signs Temp 37.2 C 11/11/19 14:22 Pulse 107 H 11/11/19 14:22 Resp 24 H 11/11/19 14:22 BP 143/78 11/11/19 14:22 Pulse Ox 94 11/11/19 14:22 - Abnormal Lab Findings Abnormal Lab Findings: Abnormal Lab Results 11/11/19 Range/Units 05:35 WBC 19.8 H (4.0-10.5) K/mm3 RBC 2.82 L (4.2-5.4) M/mm3 Hgb 7.8 L* (12.5-16.0) gm/dL Hct 24.9 L (37.0-47.0) % MCHC 31.3 L (32-36) g/dl Immature Gran % (Auto) 1.60 H (0.001-0.429) % Immature Gran # (Auto) 0.31 H (0.000-0.0310) K/mm3 Neutrophils % 84.3 H (42-75.0) % Lymphocytes % 8.7 L (20-51) % Neutrophils # 16.7 H (1.3-6.0) K/mm3 - Exam Constitutional: Present: Alert, Oriented x3, Cooperative, No distress, Elderly ENT Exam: Present: hearing grossly normal. Absent: nasal drainage Neck: Present: non-tender, supple Respiratory: Present: chest non-tender, lungs clear Cardiovascular/Chest: Present: normal peripheral pulses, regular rate, rhythm Abdomen: Present: soft, nontender, nondistended Skin Exam: Present: normal color, warm/dry Appearance: Present: appropriate appearance, appropriate insight Thoughts: Present: normal thought pattern, normal mood /affect Assessment/Plan Plan Narrative: From a clinical standpoint patient continues to improve. Recently switched her from Levaquin to Unasyn and Cipro which she is responded well to. She denies productive cough or wheezing/rhonchi. States she feels better. Vital signs been stable she been afebrile. Hypoxemia resolved She is slightly tachycardic, will give one-time dose of metoprolol IV to see if this can bring her heart rate down. Not currently on a beta-frank denies palpitations/chest pain/shortness of breath/swelling in her legs. Hypertension well-controlled on home medicines. No changes Lactic acidosis resolved We will continue to monitor clinical picture, nurse to call questions or concerns. - Problems/Diagnosis (1) Aspiration pneumonia Problem: Suspected (2) Hypoxemia Problem: Acute (3) Hypertension Problem: Chronic (4) Lactic acid increased Problem: Acute (5) GERD (gastroesophageal reflux disease) Problem: Chronic (6) Leukocytosis Problem: Acute
[2019-11-11] MEDS ORDERED: LEVOFLOXACIN IN DEXTROSE 5 % 750 MG/150 ML BAG IV SCH (17:00)
[2019-11-11] MEDS: AMITRIPTYLINE HCL 25 MG TABLET PO SCH (19:08)
[2019-11-11] MEDS: ALPRAZolam 0.5 MG TABLET PO PRN (19:22)
[2019-11-12] MEDS: metroNIDAZOLE/SODIUM CHLORIDE 500 MG/100 ML BAG IV SCH ×2 (01:16→10:19)
[2019-11-12] MEDS: AMPICILLIN SODIUM/SULBACTAM NA 3 GM in NORMAL SALINE 100 ML IV SCH ×4 (03:30→20:20)
[2019-11-12 05:47] LABS: Hematocrit 24.9 % (37.0-47.0); Mean Cell Volume 86.8 fl (78-100); Mean Corpuscular Hemoglobin 27.5 pg (27-31); Mean Corpuscular Hgb Conc 31.7 g/dl (32-36); Mean Platelet Volume 10.4 fl (8-12.5); Neutrophil # 13.8 K/mm3 (1.3-6.0); Platelet Count 248 K/mm3 (150-450); Red Blood Count 2.87 M/mm3 (4.2-5.4); Red Cell Distribution Width 13.2 % (11.5-14.0); White Blood Count 17.7 K/mm3 (4.0-10.5)
[2019-11-12 06:21] LABS: Hemoglobin 7.9 gm/dL (12.5-16.0)
[2019-11-12] MEDS: ALBUTEROL SULFATE/IPRATROPIUM 3 ML NEBU IH SCH ×2 (06:25→18:21)
[2019-11-12] MEDS: PANTOPRAZOLE SODIUM 40 MG TABLET.EC PO SCH ×2 (06:51→16:30)
[2019-11-12] MEDS: LEVOTHYROXINE SODIUM 88 MCG TABLET PO SCH (06:51)
[2019-11-12] MEDS: LACTOBACILLUS ACIDOPHILUS 1 EACH CAPSULE PO SCH (09:26)
[2019-11-12] MEDS: DULoxetine HCL 30 MG CAPSULE.SA PO SCH (09:26)
[2019-11-12] MEDS: FAMOTIDINE 20 MG TABLET PO SCH ×2 (09:26→20:20)
[2019-11-12] MEDS: ASPIRIN 81 MG TABLET.DR PO SCH (09:26)
[2019-11-12] MEDS: NORMAL SALINE 1,000 ML IV PRN (09:28)
[2019-11-12] MEDS: ACETAMINOPHEN 325 MG TABLET PO PRN (14:33)
[2019-11-12] MEDS: AMITRIPTYLINE HCL 25 MG TABLET PO SCH (18:54)
--- NOTE | 2019-11-12 23:33 | PN ---
Subjective - Date and Time Seen Date: 11/12/19 Time: 12:30 Subjective Narrative: Lesvia reports shortness of breath with activity. She required oygen overnight, but was weaned to room air today. No fever, chills, nausea, or vomiting. Objective - Vitals Vitals: Last Vital Signs Temp 36.7 C 11/12/19 18:24 Pulse 105 H 11/12/19 18:31 Resp 20 11/12/19 18:31 BP 140/70 11/12/19 18:24 Pulse Ox 94 11/12/19 18:24 - Abnormal Lab Findings Abnormal Lab Findings: Abnormal Lab Results 11/12/19 Range/Units 05:35 WBC 17.7 H (4.0-10.5) K/mm3 RBC 2.87 L (4.2-5.4) M/mm3 Hgb 7.9 L* (12.5-16.0) gm/dL Hct 24.9 L (37.0-47.0) % MCHC 31.7 L (32-36) g/dl Immature Gran % (Auto) 0.90 H (0.001-0.429) % Immature Gran # (Auto) 0.16 H (0.000-0.0310) K/mm3 Neutrophils % 78.0 H (42-75.0) % Lymphocytes % 13.1 L (20-51) % Neutrophils # 13.8 H (1.3-6.0) K/mm3 Monocytes # 1.2 H (0.0-1.0) k/mm3 - Exam Constitutional: Present: Alert, Oriented x3 ENT Exam: Present: hearing grossly normal Respiratory: Present: crackles - lateral chest bilaterally Cardiovascular/Chest: Present: regular rate, rhythm, no murmur Abdomen: Present: Normal bowel sounds, soft, nontender, nondistended Skin Exam: Present: normal color, warm/dry, no cyanosis Assessment/Plan Plan Narrative: Lesvia is improving. WBC improved and she is on room air. However she did require oxygen overnight. Will continue IV treatment and will she if she can go overnight without oxygen. If WBC continues to improve and she has no significant dyspnea with ambulation she could discharge to home in the next 1-2 days. - Problems/Diagnosis (1) Acute respiratory failure with hypoxia Problem: Acute (2) Aspiration pneumonia Problem: Suspected
[2019-11-13] MEDS: AMPICILLIN SODIUM/SULBACTAM NA 3 GM in NORMAL SALINE 100 ML IV SCH ×4 (01:49→20:27)
[2019-11-13] MEDS: ALBUTEROL SULFATE/IPRATROPIUM 3 ML NEBU IH SCH ×2 (06:06→18:26)
[2019-11-13] MEDS: PANTOPRAZOLE SODIUM 40 MG TABLET.EC PO SCH ×2 (07:15→16:00)
[2019-11-13] MEDS: LEVOTHYROXINE SODIUM 88 MCG TABLET PO SCH (07:15)
[2019-11-13] MEDS: ASPIRIN 81 MG TABLET.DR PO SCH (08:42)
[2019-11-13] MEDS: LACTOBACILLUS ACIDOPHILUS 1 EACH CAPSULE PO SCH (08:42)
[2019-11-13] MEDS: DULoxetine HCL 30 MG CAPSULE.SA PO SCH (08:42)
[2019-11-13] MEDS: FAMOTIDINE 20 MG TABLET PO SCH ×2 (08:42→20:25)
[2019-11-13 10:59] LABS: Hematocrit 25.3 % (37.0-47.0); Hemoglobin 8.2 gm/dL (12.5-16.0); Mean Cell Volume 86.1 fl (78-100); Mean Corpuscular Hemoglobin 27.9 pg (27-31); Mean Corpuscular Hgb Conc 32.4 g/dl (32-36); Mean Platelet Volume 9.3 fl (8-12.5); Neutrophil # 7.5 K/mm3 (1.3-6.0); Platelet Count 280 K/mm3 (150-450); Red Blood Count 2.94 M/mm3 (4.2-5.4); Red Cell Distribution Width 13.2 % (11.5-14.0); White Blood Count 10.2 K/mm3 (4.0-10.5)
[2019-11-13 11:17] LABS: Albumin * 2.4 gm/dl (3.4-5.0); Anion Gap 18.1 mmol/L (6.8-13.8); BUN/Creatinine Ratio 9.8 (9.0-21.6); Bilirubin, Total 0.3 mg/dL (0.0-1.1); Ca. Corrected For Albumin 9.2 mg/dL (8.4-10.2); Calcium * 8.2 mg/dL (7.9-10.9); Carbon Dioxide 22.7 mmol/L (24-32.6); Potassium 2.8 mmol/L (3.4-4.6); Total Protein 6.2 gm/dL (6.2-8.2)
[2019-11-13] MEDS ORDERED: POTASSIUM CHLORIDE 20 MEQ TABLET.SA PO ONE (12:59)
[2019-11-13] MEDS: AMITRIPTYLINE HCL 25 MG TABLET PO SCH (20:24)
[2019-11-13] MEDS: ALPRAZolam 0.5 MG TABLET PO PRN (20:56)
--- NOTE | 2019-11-13 23:49 | PN ---
Subjective - Date and Time Seen Date: 11/13/19 Time: 12:30 Subjective Narrative: Lesvia reports significant shortness of breath with walking in the land and dropped oxygen on room air to 88%. She is feeling better than yesterday. No fever, chills, nausea. She did have a choking episode while drinking pop at lunch. Objective - Vitals Vitals: Last Vital Signs Temp 37.6 C 11/13/19 21:52 Pulse 106 H 11/13/19 21:52 Resp 20 11/13/19 21:52 BP 142/75 11/13/19 21:52 Pulse Ox 97 11/13/19 21:52 - Abnormal Lab Findings Abnormal Lab Findings: Abnormal Lab Results 11/13/19 11/13/19 Range/Units 10:51 10:51 RBC 2.94 L (4.2-5.4) M/mm3 Hgb 8.2 L (12.5-16.0) gm/dL Hct 25.3 L (37.0-47.0) % Immature Gran % (Auto) 4.80 H (0.001-0.429) % Immature Gran # (Auto) 0.49 H (0.000-0.0310) K/mm3 Lymphocytes % 13.8 L (20-51) % Neutrophils # 7.5 H (1.3-6.0) K/mm3 Lymphocytes # 1.40 L (1.5-3.5) k/mm3 Potassium 2.8 L (3.4-4.6) mmol/L Carbon Dioxide 22.7 L (24-32.6) mmol/L Anion Gap 18.1 H (6.8-13.8) mmol/L ALT 10 L (19-67) U/L Albumin 2.4 L (3.4-5.0) gm/dl - Exam Constitutional: Present: Alert, Oriented x3, Cooperative Respiratory: Present: crackles - lateral chest wal Cardiovascular/Chest: Present: regular rate, rhythm, no murmur Abdomen: Present: Normal bowel sounds, soft, nontender, nondistended Skin Exam: Present: normal color, warm/dry, no cyanosis Assessment/Plan Plan Narrative: Lesvia is gradually improving. Her oxygen still drops with ambulation briefly and she is significantly short of breath but she is improved each day. WBC has normalized today. Potassium was low, will replace and monitor. Reported episode of choking after drinking pop. Will need speech eval. Prior evidence of sepsis has improved with normalized blood pressure, lactic acid has returned to normal, and respiratory failure is improving. Anticipate discharge to home tomorrow. - Problems/Diagnosis (1) Acute respiratory failure with hypoxia Problem: Acute (2) Aspiration pneumonia Problem: Suspected (3) Sepsis Problem: Acute Qualifiers: Sepsis type: sepsis due to unspecified organism Sepsis acute organ dysfu nction status: with acute organ dysfunction Severe sepsis acute organ dysfunction type: acute respiratory failure Acute respiratory failure type: with hypoxia Severe sepsis shock status: with septic shock Qualified Code(s): A41.9 - Sepsis, unspecified organism; R65.21 - Severe sepsis with septic shock; J96.01 - Acute respiratory failure with hypoxia
[2019-11-14] MEDS: AMPICILLIN SODIUM/SULBACTAM NA 3 GM in NORMAL SALINE 100 ML IV SCH ×2 (01:34→08:11)
[2019-11-14] MEDS: ALBUTEROL SULFATE/IPRATROPIUM 3 ML NEBU IH SCH ×2 (06:27→18:00)
[2019-11-14] MEDS: PANTOPRAZOLE SODIUM 40 MG TABLET.EC PO SCH ×2 (07:58→16:21)
[2019-11-14] MEDS: LEVOTHYROXINE SODIUM 88 MCG TABLET PO SCH (07:58)
[2019-11-14 09:00] LABS: Hematocrit 27.9 % (37.0-47.0); Hemoglobin 8.9 gm/dL (12.5-16.0); Mean Cell Volume 85.3 fl (78-100); Mean Corpuscular Hemoglobin 27.2 pg (27-31); Mean Corpuscular Hgb Conc 31.9 g/dl (32-36); Mean Platelet Volume 9.5 fl (8-12.5); Neutrophil # 7.5 K/mm3 (1.3-6.0); Neutrophil % 67.5 % (42-75.0); Platelet Count 320 K/mm3 (150-450); Red Blood Count 3.27 M/mm3 (4.2-5.4); Red Cell Distribution Width 13.2 % (11.5-14.0); White Blood Count 11.2 K/mm3 (4.0-10.5)
[2019-11-14 09:12] LABS: Albumin * 2.5 gm/dl (3.4-5.0); Anion Gap 13.2 mmol/L (6.8-13.8); BUN/Creatinine Ratio 7.4 (9.0-21.6); Bilirubin, Total 0.3 mg/dL (0.0-1.1); Ca. Corrected For Albumin 8.9 mg/dL (8.4-10.2); Carbon Dioxide 26.5 mmol/L (24-32.6); Potassium 2.7 mmol/L (3.4-4.6); Total Protein 6.4 gm/dL (6.2-8.2)
[2019-11-14] MEDS ORDERED: POTASSIUM CHLORIDE 20 MEQ TABLET.SA PO ONE ×2 (10:17→14:48)
[2019-11-14] MEDS ORDERED: AMOX TR/POTASSIUM CLAVULANATE 875 MG TABLET PO SCH (10:30)
[2019-11-14] MEDS: LACTOBACILLUS ACIDOPHILUS 1 EACH CAPSULE PO SCH (10:45)
[2019-11-14] MEDS: ASPIRIN 81 MG TABLET.DR PO SCH (10:45)
[2019-11-14] MEDS: DULoxetine HCL 30 MG CAPSULE.SA PO SCH (10:45)
[2019-11-14] MEDS: FAMOTIDINE 20 MG TABLET PO SCH ×2 (10:46→20:30)
[2019-11-14] MEDS: CEFEPIME HCL 2 GM in DEXTROSE 5 % IN WATER 100 ML IV SCH ×2 (15:31)
[2019-11-14] MEDS: ALPRAZolam 0.5 MG TABLET PO PRN (20:30)
[2019-11-14] MEDS: AMITRIPTYLINE HCL 25 MG TABLET PO SCH (20:30)
--- NOTE | 2019-11-14 23:46 | PN ---
Subjective - Date and Time Seen Date: 11/14/19 Time: 16:00 Subjective Narrative: Lesvia had worse dyspnea with exertion and dropped to 78% on room air with ambulation and continued to need oxygen during the day. WBC elevated. Repeated chest xray today which shows worsening pneumonia. Objective - Vitals Vitals: Last Vital Signs Temp 36.6 C 11/14/19 23:00 Pulse 86 11/14/19 23:00 Resp 20 11/14/19 23:00 BP 110/52 11/14/19 23:00 Pulse Ox 95 11/14/19 23:00 - Abnormal Lab Findings Abnormal Lab Findings: Abnormal Lab Results 11/14/19 11/14/19 11/14/19 Range/Units 08:57 08:57 15:17 WBC 11.2 H (4.0-10.5) K/mm3 RBC 3.27 L (4.2-5.4) M/mm3 Hgb 8.9 L (12.5-16.0) gm/dL Hct 27.9 L (37.0-47.0) % MCHC 31.9 L (32-36) g/dl Immature Gran % (Auto) 4.50 H (0.001-0.429) % Immature Gran # (Auto) 0.50 H (0.000-0.0310) K/mm3 Lymphocytes % 12.3 L (20-51) % Monocytes % 11.1 H (0.0-9) % Eosinophils % 3.9 H (0.0-3.0) % Neutrophils # 7.5 H (1.3-6.0) K/mm3 Lymphocytes # 1.37 L (1.5-3.5) k/mm3 Monocytes # 1.2 H (0.0-1.0) k/mm3 pCO2 30.8 L (32.0-45.0) mmHg pO2 77.7 L (83.0-108.0) mmHg ABG pH 7.48 H (7.35-7.45) Potassium 2.7 L (3.4-4.6) mmol/L BUN/Creatinine Ratio 7.4 L (9.0-21.6) Random Glucose 119 H (70-110) mg/dL ALT 12 L (19-67) U/L Albumin 2.5 L (3.4-5.0) gm/dl - Exam Constitutional: Present: Alert, Oriented x3, Cooperative ENT Exam: Present: hearing grossly normal Respiratory: Present: crackles - diffuse Cardiovascular/Chest: Present: regular rate, rhythm, no murmur Abdomen: Present: Normal bowel sounds, soft, nontender, nondistended Assessment/Plan Plan Narrative: Evidence of worsening pneumoniia while on unasyn. WBC rising, chest xray worse, and hypoxia today. Will discontinue unasyn and start cefipimefor. Continue breathing treatments, steroids, and cornet. Sputum culture ordered today. With worsening signs of pneumonia may be 2-3 days before home discharge. Potassium low, replaced and will monitor. - Problems/Diagnosis (1) Acute respiratory failure with hypoxia Problem: Acute (2) Aspiration pneumonia Problem: Suspected (3) Sepsis Problem: Acute Qualifiers: Sepsis type: sepsis due to unspecified organism Sepsis acute organ dysfunction status: with acute organ dysfunction Severe sepsis acute organ dysfunction type: acute respiratory failure Acute respiratory failure type: with hypoxia Severe sepsis shock status: with septic shock Qualified Code(s): A41.9 - Sepsis, unspecified organism; R65.21 - Severe sepsis with septic shock; J96.01 - Acute respiratory failure with hypoxia
[2019-11-15] MEDS: CEFEPIME HCL 2 GM in DEXTROSE 5 % IN WATER 100 ML IV SCH ×4 (02:56→15:12)
[2019-11-15] MEDS: ALBUTEROL SULFATE/IPRATROPIUM 3 ML NEBU IH SCH ×2 (06:21→18:20)
[2019-11-15] MEDS: LEVOTHYROXINE SODIUM 88 MCG TABLET PO SCH (07:56)
[2019-11-15] MEDS: PANTOPRAZOLE SODIUM 40 MG TABLET.EC PO SCH ×2 (07:56→17:07)
[2019-11-15 08:28] LABS: Hematocrit 26.4 % (37.0-47.0); Hemoglobin 8.4 gm/dL (12.5-16.0); Mean Corpuscular Hemoglobin 27.4 pg (27-31); Mean Corpuscular Hgb Conc 31.8 g/dl (32-36); Mean Platelet Volume 9.6 fl (8-12.5); Neutrophil # 5.5 K/mm3 (1.3-6.0); Neutrophil % 53.5 % (42-75.0); Platelet Count 357 K/mm3 (150-450); Red Blood Count 3.07 M/mm3 (4.2-5.4); Red Cell Distribution Width 13.4 % (11.5-14.0); White Blood Count 10.3 K/mm3 (4.0-10.5)
[2019-11-15] MEDS: ACETAMINOPHEN 325 MG TABLET PO PRN (08:33)
[2019-11-15 08:39] LABS: Albumin * 2.3 gm/dl (3.4-5.0); Anion Gap 11.4 mmol/L (6.8-13.8); BUN/Creatinine Ratio 6.8 (9.0-21.6); Bilirubin, Total 0.2 mg/dL (0.0-1.1); Carbon Dioxide 28.4 mmol/L (24-32.6); Potassium 2.8 mmol/L (3.4-4.6); Total Protein 6.4 gm/dL (6.2-8.2)
[2019-11-15] MEDS ORDERED: POTASSIUM CHLORIDE 20 MEQ TABLET.SA PO ONE ×3 (08:47→14:47)
[2019-11-15] MEDS ORDERED: BENZOCAINE/MENTHOL 16 EACH BOX MM PRN (08:51)
[2019-11-15] MEDS: LACTOBACILLUS ACIDOPHILUS 1 EACH CAPSULE PO SCH (10:06)
[2019-11-15] MEDS: ASPIRIN 81 MG TABLET.DR PO SCH (10:06)
[2019-11-15] MEDS: DULoxetine HCL 30 MG CAPSULE.SA PO SCH (10:06)
[2019-11-15] MEDS: FAMOTIDINE 20 MG TABLET PO SCH ×2 (10:07→20:30)
[2019-11-15] MEDS ORDERED: ACETAMINOPHEN WITH CODEINE 1 EACH TABLET PO PRN (16:02)
[2019-11-15] MEDS: AMITRIPTYLINE HCL 25 MG TABLET PO SCH (18:39)
--- NOTE | 2019-11-15 23:41 | PN ---
Subjective - Date and Time Seen Date: 11/15/19 Time: 14:00 Subjective Narrative: Lesvia reports feeling better today. She ambulated in the land and dropped to 87% on room air but she was able to be weaned off oxygen at rest and O2 has remained above 90% at rest on room air. WBC improved today. No fever. Objective - Vitals Vitals: Last Vital Signs Temp 37.3 C 11/15/19 19:20 Pulse 102 H 11/15/19 19:20 Resp 21 H 11/15/19 19:20 BP 125/48 11/15/19 19:20 Pulse Ox 93 11/15/19 19:20 - Abnormal Lab Findings Abnormal Lab Findings: Abnormal Lab Results 11/15/19 11/15/19 Range/Units 08:25 08:25 RBC 3.07 L (4.2-5.4) M/mm3 Hgb 8.4 L (12.5-16.0) gm/dL Hct 26.4 L (37.0-47.0) % MCHC 31.8 L (32-36) g/dl Immature Gran % (Auto) 3.20 H (0.001-0.429) % Immature Gran # (Auto) 0.33 H (0.000-0.0310) K/mm3 Monocytes % 10.5 H (0.0-9) % Eosinophils % 10.4 H (0.0-3.0) % Monocytes # 1.1 H (0.0-1.0) k/mm3 Eosinophils # 1.1 H (0.0-0.7) k/mm3 Potassium 2.8 L (3.4-4.6) mmol/L BUN/Creatinine Ratio 6.8 L (9.0-21.6) ALT 12 L (19-67) U/L Albumin 2.3 L (3.4-5.0) gm/dl - Exam Constitutional: Present: Alert, Oriented x3, Cooperative ENT Exam: Present: hearing grossly normal Respiratory: Present: crackles - bilateral Cardiovascular/Chest: Present: regular rate, rhythm, no murmur Abdomen: Present: Normal bowel sounds, soft, nontender, nondistended Skin Exam: Present: normal color, warm/dry, no cyanosis Appearance: Present: appropriate appearance, appropriate insight Eye contact: Present: cooperative, good eye contact, normal speech Assessment/Plan Plan Narrative: Lesvia is better today. She has weaned off oxygen and WBC has normalized again. This may be from changing antibiotics to cefepime yesterday or maybe she had a mucus plug yesterday that caused a set back. Potassium is still low and will continue to replace and monitor. As she just weaned off oxygen again today and had such dyspnea and hypoxia yesterday she is not ready to be discharged to home today. Will see how she does tomorrow. If WBC remains down and she can ambulate well without hypoxia. - Problems/Diagnosis (1) Acute respiratory failure with hypoxia Problem: Acute (2) Aspiration pneumonia Problem: Suspected (3) Sepsis Problem: Acute Qualifiers: Sepsis type: sepsis due to unspecified organism Sepsis acute organ dysfunction status: with acute organ dysfunction Severe sepsis acute organ dysfunction type: acute respiratory failure Acute respiratory failure type: with hypoxia Severe sepsis shock status: without septic shock Qualified Code(s): A41.9 - Sepsis, unspecified organism; R65.20 - Severe sepsis without septic shock; J96.01 - Acute respiratory failure with hypoxia (4) Hypokalemia Problem: Acute
[2019-11-16] MEDS: CEFEPIME HCL 2 GM in DEXTROSE 5 % IN WATER 100 ML IV SCH ×4 (03:38→15:48)
[2019-11-16] MEDS: ALBUTEROL SULFATE/IPRATROPIUM 3 ML NEBU IH SCH ×2 (06:24→18:06)
[2019-11-16] MEDS: PANTOPRAZOLE SODIUM 40 MG TABLET.EC PO SCH ×2 (07:11→16:01)
[2019-11-16] MEDS: LEVOTHYROXINE SODIUM 88 MCG TABLET PO SCH (07:11)
[2019-11-16] MEDS: DULoxetine HCL 30 MG CAPSULE.SA PO SCH (09:05)
[2019-11-16] MEDS: LACTOBACILLUS ACIDOPHILUS 1 EACH CAPSULE PO SCH (09:05)
[2019-11-16] MEDS: ASPIRIN 81 MG TABLET.DR PO SCH (09:05)
[2019-11-16] MEDS: FAMOTIDINE 20 MG TABLET PO SCH ×2 (09:06→20:55)
[2019-11-16 09:59] LABS: Hemoglobin 8.6 gm/dL (12.5-16.0); Mean Cell Volume 86.3 fl (78-100); Mean Corpuscular Hemoglobin 27.5 pg (27-31); Mean Corpuscular Hgb Conc 31.9 g/dl (32-36); Mean Platelet Volume 9.7 fl (8-12.5); Neutrophil # 5.7 K/mm3 (1.3-6.0); Neutrophil % 57.2 % (42-75.0); Platelet Count 426 K/mm3 (150-450); Red Blood Count 3.13 M/mm3 (4.2-5.4); Red Cell Distribution Width 13.6 % (11.5-14.0)
[2019-11-16 10:11] LABS: Albumin * 2.4 gm/dl (3.4-5.0); Anion Gap 10.1 mmol/L (6.8-13.8); BUN/Creatinine Ratio 6.2 (9.0-21.6); Bilirubin, Total 0.2 mg/dL (0.0-1.1); Ca. Corrected For Albumin 9.1 mg/dL (8.4-10.2); Calcium * 8.1 mg/dL (7.9-10.9); Carbon Dioxide 29.3 mmol/L (24-32.6); Potassium 3.4 mmol/L (3.4-4.6); Total Protein 6.6 gm/dL (6.2-8.2)
[2019-11-16] MEDS: AMITRIPTYLINE HCL 25 MG TABLET PO SCH (18:39)
--- NOTE | 2019-11-16 20:22 | PN ---
Subjective - Date and Time Seen Date: 11/16/19 Time: 13:00 Subjective Narrative: Overnight she dropped to 86% on room air and was placed on 1% oxygen to keep sats above 90%, this morning she was able to be weaned off oxygen. She drops briefly to 88% on room air with activity but quickly recovers above 90% with rest. Her potassium normalized today and her WBC remains normal. She reports gradually getting strong, although still short of breath with activity. Her husb and works tonight and is not confortable with her going home tonight as he will not be there. Objective - Vitals Vitals: Last Vital Signs Temp 36.9 C 11/16/19 17:52 Pulse 92 11/16/19 18:15 Resp 20 11/16/19 18:15 BP 124/94 H 11/16/19 17:52 Pulse Ox 99 11/16/19 18:06 - Abnormal Lab Findings Abnormal Lab Findings: Abnormal Lab Results 11/16/19 11/16/19 Range/Units 09:55 09:55 RBC 3.13 L (4.2-5.4) M/mm3 Hgb 8.6 L (12.5-16.0) gm/dL Hct 27.0 L (37.0-47.0) % MCHC 31.9 L (32-36) g/dl Immature Gran % (Auto) 2.90 H (0.001-0.429) % Immature Gran # (Auto) 0.29 H (0.000-0.0310) K/mm3 Eosinophils % 9.4 H (0.0-3.0) % Basophils % 1.1 H (0.0-1.0) % Eosinophils # 0.9 H (0.0-0.7) k/mm3 BUN/Creatinine Ratio 6.2 L (9.0-21.6) Random Glucose 123 H (70-110) mg/dL ALT 11 L (19-67) U/L Albumin 2.4 L (3.4-5.0) gm/dl - Exam Constitutional: Present: Alert, Oriented x3, Cooperative ENT Exam: Present: hearing grossly normal Respiratory: Present: no respiratory distress, crackles - throughout Cardiovascular/Chest: Present: regular rate, rhythm, no murmur Abdomen: Present: Normal bowel sounds, soft, nontender, nondistended Skin Exam: Present: normal color, warm/dry, no cyanosis Assessment/Plan Plan Narrative: Lesvia is a 74 yo female with bilateral pneumonia following a possible aspiration pneumonia. She was initially treated and began to improve with Unasyn but worsened and was switched to Cefepime. Since that change she has been improving. She has had hypokalemia with replaced potassium that has now normalized. No further potassium was given today. Continue Cefepime and planning to change to augmentin at discharge, possibly tomorrow. I am not ready to discharge her today as she is still dropping oxygen saturation and significantly dyspneic on ambulation. She may be discharged this weekend if those correct. Her does not want to leave her side once she is discharged and while she is still in the hospital he requested to go slate picker her antibiotics. I have already sent in augmentin 875mg for BID dosing for 7 additional days at discharge. If she is discharge she may follow up with me in clinic at the end of next week. - Problems/Diagnosis (1) Acute respiratory failure with hypoxia Problem: Acute (2) Aspiration pneumonia Problem: Suspected Qualifiers: Laterality: bilateral Lung location: unspecified part of lung (3) Sepsis Problem: Acute Qualifiers: Sepsis type: sepsis due to unspecified organism Sepsis acute organ dysfunction status: with acute organ dysfunction Severe sepsis acute organ dysfunction type: acute respiratory failure Acute respiratory failure type: with hypoxia Severe sepsis shock status: without septic shock Qualified Code(s): A41.9 - Sepsis, unspecified organism; R65.20 - Severe sepsis without septic shock; J96.01 - Acute respiratory failure with hypoxia (4) Hypokalemia Problem: Resolved
[2019-11-17] MEDS: CEFEPIME HCL 2 GM in DEXTROSE 5 % IN WATER 100 ML IV SCH ×2 (02:53)
[2019-11-17] MEDS: ALBUTEROL SULFATE/IPRATROPIUM 3 ML NEBU IH SCH (06:04)
[2019-11-17] MEDS: ASPIRIN 81 MG TABLET.DR PO SCH (08:17)
[2019-11-17] MEDS: FAMOTIDINE 20 MG TABLET PO SCH (08:17)
[2019-11-17] MEDS: DULoxetine HCL 30 MG CAPSULE.SA PO SCH (08:18)
[2019-11-17] MEDS: PANTOPRAZOLE SODIUM 40 MG TABLET.EC PO SCH (08:18)
[2019-11-17] MEDS: LEVOTHYROXINE SODIUM 88 MCG TABLET PO SCH (08:18)
[2019-11-17] MEDS: LACTOBACILLUS ACIDOPHILUS 1 EACH CAPSULE PO SCH (08:18)
--- NOTE | 2019-11-17 09:35 | DS ---
Date of Discharge:: 11/17/19 Hospital Course: DC summary done using chart review. Patient presented to the ED with worsened acid reflux, cough, fever, slight dyspnea, and decreased oxygen. She was admitted and started on levaquin and IV fluids, and given a diagnosis of sepsis. Started on steroids and breathing treatments. Her WBC worsened, and abx changed to Unasyn and cipro. Potassium was replaced for hypokalemia. She had several days of decreased oxygenation with ambulation. She had ongoing SOB, and abx changed again to cefepime. She clinically improved, and no longer required oxygen by the day of DC. will be sent home with augmentin. Probiotics sent, to continue for 2 weeks after final antibiotic dose. Procedures Performed: none Results and Findings: Lab Pending Results 11/09/19 11:38: Influenza Type A Ag Negative, Influenza Type B Ag Negative 11/09/19 11:40: WBC 15.2 H, RBC 3.89 L, Hgb 10.6 L, Hct 34.1 L, MCV 87.7, MCH 27.2, MCHC 31.1 L, RDW 12.9, Plt Count 341, MPV 9.6, Immature Gran % (Auto) 0.30, Immature Gran # (Auto) 0.05 H, Neutrophils % 86.9 H, Lymphocytes % 5.5 L, Monocytes % 5.8, Eosinophils % 1.0, Basophils % 0.5, Nucleated RBC % 0.0, Neutrophils # 13.3 H, Lymphocytes # 0.84 L, Monocytes # 0.9, Eosinophils # 0.2, Absolute Basophils 0.1 11/09/19 11:40: Sodium 140, Plasma Sodium 140, Potassium 3.2 L, Chloride 102, Carbon Dioxide 31.4, Anion Gap 9.8, BUN 13, Creatinine 1.04, Est GFR (Non-Af Amer) 55 L D, BUN/Creatinine Ratio 12.5, Random Glucose 118 H, Calcium 9.1, Calcium Adj for Albumin 9.3, Total Bilirubin 0.3, AST 21, ALT 13 L, Alkaline Phosphatase 64, B-Natriuretic Peptide 135, Total Protein 7.0, Albumin 3.4 11/09/19 11:40: Lactic Acid, Venous 2.2 H* 11/09/19 11:47: pCO2 39.6, pO2 74.4 L, HCO3 23.8, Total CO2 25.0 H, Base Excess -0.9, ABG pH 7.40, ABG O2 Sat (Measured) 95.0 11/09/19 12:55: Urine Color Yellow, Urine Appearance Clear, Urine pH 6.0, Ur Specific [place] 1.015, Urine Protein Negative, Urine Glucose (UA) Negative, Urine Ketones Negative, Urine Blood Negative, Urine Nitrate Negative, Urine Bilirubin Negative, Urine Urobilinogen Normal, Ur Leukocyte Esterase Negative, Urine RBC None seen, Urine WBC Trace H, Ur Epithelial Cells 0-5, Urine Bacteria 2+ H, Urine Culture Comments Culture to follow 11/09/19 14:15: Chlamy pneumoniae PCR Not detected, Adenovirus (PCR) Not detected, B. pertussis DNA (PCR) Not detected, Coronavirus OC43 (PCR) Not detected, Coronavirus HKU1 (PCR) Not detected, Coronavirus 229E (PCR) Not detected, Coronavirus NL63 (PCR) Not detected, Human Metapneumovir PCR Not detected, Influenza A (H1) PCR Not detected, Influenza A (H1N1) PCR Not detected, Influenza A (H3) PCR Not detected, Influenza B (RT-PCR) Not detected, M. pneumoniae (PCR) Not detected, Parainfluenza 1 (PCR) Not detected, Parainfluenza 2 (PCR) Not detected, Parainfluenza 3 (PCR) Not detected, Parainfluenza 4 (PCR) Not detected, RSV (PCR) Not detected, Rhinovirus (PCR) Not detected 11/09/19 14:45: Lactic Acid, Venous 2.5 H* 11/10/19 06:45: WBC 23.6 H D, RBC 3.07 L, Hgb 8.5 L, Hct 27.2 L, MCV 88.6, MCH 27.7, MCHC 31.3 L, RDW 13.3, Plt Count 268, MPV 9.5, Neutrophils % (Manual) 88 H, Band Neuts % (Manual) 2, Lymphocytes % (Manual) 7 L, Monocytes % (Manual) 3, Neutrophils # (Manual) 20.8 H, Lymphocytes # (Manual) 1.7, Monocytes # (Manual) 0.7, Platelet Estimate Normal, Anisocytosis 1+, Spherocytes 1+ 11/10/19 07:24: Sodium 139, Plasma Sodium 139, Potassium 3.5, Chloride 106, Carbon Dioxide 23.1 L, Anion Gap 13.4, BUN 12, Creatinine 1.05, Est GFR (Non-Af Amer) 54 L, BUN/Creatinine Ratio 11.4, Random Glucose 114 H, Calcium 7.9 11/10/19 07:24: Lactic Acid, Venous 3.5 H* 11/10/19 10:22: Lactic Acid, Venous 2.5 H* 11/10/19 18:59: Lactic Acid, Venous 1.1 11/11/19 05:35: WBC 19.8 H, RBC 2.82 L, Hgb 7.8 L*, Hct 24.9 L, MCV 88.3, MCH 27.7, MCHC 31.3 L, RDW 13.5, Plt Count 222, MPV 10.3, Immature Gran % (Auto) 1.60 H, Immature Gran # (Auto) 0.31 H, Neutrophils % 84.3 H, Lymphocytes % 8.7 L, Monocytes % 4.7, Eosinophils % 0.2, Basophils % 0.5, Nucleated RBC % 0.0, Neutrophils # 16.7 H, Lymphocytes # 1.72, Monocytes # 0.9, Eosinophils # 0.0, Absolute Basophils 0.1 11/12/19 05:35: WBC 17.7 H, RBC 2.87 L, Hgb 7.9 L*, Hct 24.9 L, MCV 86.8, MCH 27.5, MCHC 31.7 L, RDW 13.2, Plt Count 248, MPV 10.4, Immature Gran % (Auto) 0.90 H, Immature Gran # (Auto) 0.16 H, Neutrophils % 78.0 H, Lymphocytes % 13.1 L, Monocytes % 6.9, Eosinophils % 0.6, Basophils % 0.5, Nucleated RBC % 0.0, Neutrophils # 13.8 H, Lymphocytes # 2.31, Monocytes # 1.2 H, Eosinophils # 0.1, Absolute Basophils 0.1 11/13/19 10:51: WBC 10.2 D, RBC 2.94 L, Hgb 8.2 L, Hct 25.3 L, MCV 86.1, MCH 27.9, MCHC 32.4, RDW 13.2, Plt Count 280, MPV 9.3, Immature Gran % (Auto) 4.80 H, Immature Gran # (Auto) 0.49 H, Neutrophils % 74.0, Lymphocytes % 13.8 L, Monocytes % 6.8, Eosinophils % 0.1, Basophils % 0.5, Nucleated RBC % 0.0, Neutrophils # 7.5 H, Lymphocytes # 1.40 L, Monocytes # 0.7, Eosinophils # 0.0, Absolute Basophils 0.1 11/13/19 10:51: Sodium 141, Plasma Sodium 141, Potassium 2.8 L, Chloride 103, Carbon Dioxide 22.7 L, Anion Gap 18.1 H, BUN 8, Creatinine 0.82, Est GFR (Non-Af Amer) 72 D, BUN/Creatinine Ratio 9.8, Random Glucose 104, Calcium 8.2, Calcium Adj for Albumin 9.2, Total Bilirubin 0.3, AST 20, ALT 10 L, Alkaline Phosphatase 60, Total Protein 6.2, Albumin 2.4 L 11/14/19 08:57: WBC 11.2 H, RBC 3.27 L, Hgb 8.9 L, Hct 27.9 L, MCV 85.3, MCH 27.2, MCHC 31.9 L, RDW 13.2, Plt Count 320, MPV 9.5, Immature Gran % (Auto) 4.50 H, Immature Gran # (Auto) 0.50 H, Neutrophils % 67.5, Lymphocytes % 12.3 L, Monocytes % 11.1 H, Eosinophils % 3.9 H, Basophils % 0.7, Nucleated RBC % 0.0, Neutrophils # 7.5 H, Lymphocytes # 1.37 L, Monocytes # 1.2 H, Eosinophils # 0.4, Absolute Basophils 0.1 11/14/19 08:57: Sodium 138, Plasma Sodium 138, Potassium 2.7 L, Chloride 101, Carbon Dioxide 26.5, Anion Gap 13.2, BUN 5, Creatinine 0.68, Est GFR (Non-Af Amer) 90 D, BUN/Creatinine Ratio 7.4 L, Random Glucose 119 H, Calcium 8.0, Calcium Adj for Albumin 8.9, Total Bilirubin 0.3, AST 18, ALT 12 L, Alkaline Phosphatase 65, Total Protein 6.4, Albumin 2.5 L 11/14/19 15:17: pCO2 30.8 L, pO2 77.7 L, HCO3 22.6, Total CO2 23.6, Base Excess -0.4, ABG pH 7.48 H, ABG O2 Sat (Measured) 96.5 11/15/19 08:25: WBC 10.3, RBC 3.07 L, Hgb 8.4 L, Hct 26.4 L, MCV 86.0, MCH 27.4, MCHC 31.8 L, RDW 13.4, Plt Count 357, MPV 9.6, Immature Gran % (Auto) 3.20 H, Immature Gran # (Auto) 0.33 H, Neutrophils % 53.5, Lymphocytes % 21.8, Monocytes % 10.5 H, Eosinophils % 10.4 H, Basophils % 0.6, Nucleated RBC % 0.0, Neutrophils # 5.5, Lymphocytes # 2.25, Monocytes # 1.1 H, Eosinophils # 1.1 H, Absolute Basophils 0.1 11/15/19 08:25: Sodium 139, Plasma Sodium 139, Potassium 2.8 L, Chloride 102, Carbon Dioxide 28.4, Anion Gap 11.4, BUN 5, Creatinine 0.74, Est GFR (Non-Af Amer) 81, BUN/Creatinine Ratio 6.8 L, Random Glucose 100, Calcium 8.0, Calcium Adj for Albumin 9.0, Total Bilirubin 0.2, AST 15, ALT 12 L, Alkaline Phosphatase 59, Total Protein 6.4, Albumin 2.3 L 11/16/19 09:55: WBC 10.0, RBC 3.13 L, Hgb 8.6 L, Hct 27.0 L, MCV 86.3, MCH 27.5, MCHC 31.9 L, RDW 13.6, Plt Count 426, MPV 9.7, Immature Gran % (Auto) 2.90 H, Immature Gran # (Auto) 0.29 H, Neutrophils % 57.2, Lymphocytes % 22.3, Monocytes % 7.1, Eosinophils % 9.4 H, Basophils % 1.1 H, Nucleated RBC % 0.0, Neutrophils # 5.7, Lymphocytes # 2.22, Monocytes # 0.7, Eosinophils # 0.9 H, Absolute Basophils 0.1 11/16/19 09:55: Sodium 139, Plasma Sodium 139, Potassium 3.4 D, Chloride 103, Carbon Dioxide 29.3, Anion Gap 10.1, BUN 5, Creatinine 0.81, Est GFR (Non-Af Amer) 73, BUN/Creatinine Ratio 6.2 L, Random Glucose 123 H, Calcium 8.1, Calcium Adj for Albumin 9.1, Total Bilirubin 0.2, AST 15, ALT 11 L, Alkaline Phosphatase 66, Total Protein 6.6, Albumin 2.4 L Discharge Location: Home Disposition: Home self-care Condition: Stable Discharge Activity: Activity as tolerated Discharge Diet: Resume usual diet Referrals: Matthew Berman DO [Primary Care Provider] - One Week Additional Patient Instructions (free text): Will be a TCM follow up appointment. Prescriptions (Any new or edited meds): Lactobacillus Acidophilus [Bacid] 1 ea PO DAILY #21 cap Transmission Status: Pending to [place], [place] guaiFENesin [Mucinex] 1,200 mg PO BID #10 tablet. Transmission Status: Pending to [place], [place] Pantoprazole Sodium [Protonix] 40 mg PO BID@0700,1700 #60 tablet. Transmission Status: Pending to [place], [place] Complete Home Medications List: Complete Home Medication List: famotidine 20 mg tablet 20 mg PO BID #180 tab 04/18/18 Amitriptyline HCl 125 mg PO HS 08/17/19 Aspirin [Aspir-Low] 81 mg PO DAILY 08/17/19 Albuterol Sulfate [Proair Hfa] 2 puff INHALATION BID #1 inhaler 08/20/19 duloxetine 30 mg capsule,delayed release 30 mg PO DAILY #90 cap 08/27/19 alprazolam 0.5 mg tablet 0.5 mg PO BID PRN #180 tab 09/28/19 Acetaminophen with Codeine [Tylenol with Codeine #4 Tablet] 1 ea PO Q6H PRN 11/09/19 levothyroxine 88 mcg tablet 88 mcg PO DAILY #90 tab 11/09/19 pantoprazole 40 mg tablet,delayed release 40 mg PO BID #180 tab 11/09/19 amoxicillin 875 mg-potassium clavulanate 125 mg tablet 1 tab PO BID #14 tab 11/16/19 Lactobacillus Acidophilus [Bacid] 1 ea PO DAILY #21 cap 11/17/19 Pantoprazole Sodium [Protonix] 40 mg PO BID@0700,1700 #60 tablet. 11/17/19 guaiFENesin [Mucinex] 1,200 mg PO BID #10 tablet.sa 11/17/19
[2019-11-17 11:56] VITALS: BP 138/71
== END 2019-11-17 11:40 | disposition home or self-care (01) | DRG 871 ==
LOC: MS 11:00 → ER 11:00 → OBSVTOIN 14:28 → MS 15:16
PROVIDERS: ADMIT Family Medicine; ATTEND Family Medicine
DX: E03.9 Hypothyroidism, unspecified; J96.01 Acute respiratory failure with hypoxia; A41.9 Sepsis, unspecified organism; I10 Essential (primary) hypertension; K21.9 Gastro-esophageal reflux disease without esophagitis; E78.5 Hyperlipidemia, unspecified; D72.829 Elevated white blood cell count, unspecified; R53.1 Weakness; E87.6 Hypokalemia; R65.21 Severe sepsis with septic shock; J69.0 Pneumonitis due to inhalation of food and vomit
CPT/HCPCS: 36415; 36600; 71010; 71020; 71045; 71046; 80048; 80053; 81001; 82803; 83519; 83605; 83880; 85025; 87040; 87086; 87400; 87449; 87633; 92610; 93005; 94640; 94664; 96365; 96366; 96367; 97110; 97116; 97161; 99285; G0378

== ENCOUNTER 2020-02-02 03:03 | Observation (INO) ==
[2020-02-02] MEDS ORDERED: NORMAL SALINE 1,000 ML IV ONE (03:15)
--- NOTE | 2020-02-02 03:26 | ERNOTE ---
Fever HPI - Narrative Date of Service: 02/02/20 Narrative: 75-year-old female brought to the emergency room with fever and altered mental status which started earlier tonight called to tell us he was running around states she complained 1030 of some gastric reflux several hours later she agitated in her sleep was confused took her temperature was 101.1 to tell us that she was coming in she had been admitted couple months ago with pneumonia - General Chief Complaint: Fever Stated Complaint: fever,ams Time Seen by Provider: 02/02/20 03:05 Source: patient, family Exam Limitations: clinical condition - Immunization Immunizations: IMMUNIZATION HX Immunizations Up to Date Yes History of Influenza Vaccine Yes Hx Pneumococcal Vaccination Yes - History of Present Illness Timing/Duration: this evening Fever Severity/Quality: low grade, greater than 100.5 F Fever Therapy [employer] COACH: none Associated Symptoms: Present: confusion, cough, nausea Allergies escitalopram oxalate [From Lexapro] Allergy (Severe, Verified 02/02/20 04:45) lips swelling, difficulty swollowing sertraline [From Zoloft] Allergy (Intermediate, Verified 02/02/20 04:45) Lip/tongue swelling Home Medications Medication Instructions Recorded Last Taken famotidine 20 mg tablet 20 mg PO BID #180 tab 04/18/18 11/08/19 Aspirin [Aspir-Low] 81 mg PO DAILY 08/17/19 11/08/19 Albuterol Sulfate [Proair Hfa] 2 puff INHALATION BID #1 inhaler 08/20/19 Unknown duloxetine 30 mg capsule,delayed 30 mg PO DAILY #90 cap 08/27/19 11/08/19 release alprazolam 0.5 mg tablet 0.5 mg PO BID PRN #180 tab 09/28/19 Unknown levothyroxine 88 mcg tablet 88 mcg PO DAILY #90 tab 11/09/19 11/08/19 pantoprazole 40 mg tablet,delayed 40 mg PO BID #180 tab 11/09/19 11/08/19 release Lactobacillus Acidophilus [Bacid] 1 ea PO DAILY #21 cap 11/17/19 Unknown Pantoprazole Sodium [Protonix] 40 mg PO BID@0700,1700 #60 11/17/19 Unknown tablet. acetaminophen 300 mg-codeine 60 mg 1 tab PO Q6H PRN #120 tab 11/26/19 Unknown tablet amitriptyline 150 mg tablet 150 mg PO HS #90 tab 12/04/19 Unknown Ondansetron HCl [Zofran] 8 mg PO BID PRN 02/02/20 Unknown Tylenol with Codeine #4 Tablet 02/02/20 Unknown Review of Systems - Review of Systems Constitutional: Present: no symptoms reported, diaphoresis, weakness EENTM: Present: no symptoms reported Respiratory: Present: cough, short of breath Cardiology: Present: no symptoms reported Gastrointestinal/Abdominal: Present: no symptoms reported Genitourinary: Present: no symptoms reported Musculoskeletal: Present: back pain, joint pain Skin: Present: no symptoms reported Endocrine: Present: other - Confusion Hematologic/Lymphatic: Present: no symptoms reported All Other Systems: All systems neg except as marked Fever EXAM - Physical Exam General Appearance: Present: WD/WN, lethargic, mild distress Eye Exam: bilateral eye: normal inspection ENT Exam: Present: normal ENT inspection, dry mucous membranes Neck: Present: non-tender, full range of motion Respiratory: Present: chest non-tender, normal breath sounds, other - Fine rales right lower lobe Cardiovascular/Chest: Present: normal peripheral pulses Gastrointestinal/Abdominal: Present: normal bowel sounds Extremity: Present: normal range of motion, non-tender Neurologic: Present: review trainer II-XII nml as tested, normal cerebellar test, no motor/sensory deficits, depressed affect Skin Exam: Present: warm/dry Lymphatic: Present: no adenopathy ED Progress - PROGRESS/REASSESSMENT Condition: Pain free at discharge Progress Note-Subjective: 02/02/20 05:08 Patient's fever is down is doing better but still somewhat confused and disoriented has been told is that she takes Tylenol No. 4 a few times a day for back pain last time she took it was early Tuesday morning she has not been out since the COVID infection 67 days according 02/02/20 06:03 Patient is to be admitted here at [facility] will be admitting patient for negative pressure room until COVID-19 is ruled out later in the day - VITAL SIGNS Patient's Vital Signs:: I have reviewed the patient's vital signs. Pulse ox 88-89 room air temperature 38 C - RESULTS AND ORDERS Patient's Lab Results:: I have reviewed the patient's lab results. Results and Orders: 02/02/20 04:02 Laboratory Tests 02/02/20 02/02/20 02/02/20 03:20 03:20 03:20 WBC 16.6 H RBC 3.60 L Hgb 9.2 L Hct 29.5 L MCV 81.9 MCH 25.6 L MCHC 31.2 L RDW 15.7 H Plt Count 358 MPV 10.1 Neutrophils % 77.3 H Lymphocytes % 12.1 L Neutrophils # 12.8 H Lymphocytes # 2.01 Monocytes # 1.2 H PT 10.0 INR (Anticoag Therapy) 1.01 PTT (Emy) 28.7 Sodium 137 Plasma Sodium 137 Potassium 4.5 D Chloride 100 Carbon Dioxide 27.4 Anion Gap 14.1 H BUN 11 D Creatinine 1.03 Est GFR (Non-Af Amer) 55 L D BUN/Creatinine Ratio 10.7 Random Glucose 123 H Calcium 8.7 AST 20 Alkaline Phosphatase 71 Troponin I Less than 0.017 B-Natriuretic Peptide 179 Total Protein 7.1 02/02/20 04:05 Laboratory Tests 02/02/20 03:20 Urine Opiates Screen Positive H U Benzodiazepines Scrn Positive H 02/02/20 04:14 Laboratory Tests 02/02/20 02/02/20 03:20 03:20 D-Dimer 0.90 H Troponin I Less than 0.017 B-Natriuretic Peptide 179 Total Protein 7.1 Albumin 3.2 L Lipase 70 L TSH 1.455 02/02/20 04:32 Laboratory Tests 02/02/20 02/02/20 02/02/20 03:20 03:20 04:10 pCO2 41.3 pO2 60.5 L HCO3 24.4 Total CO2 25.7 H Base Excess -0.5 ABG pH 7.39 Albumin 3.2 L Lipase 70 L Procalcitonin Less than 0.05 L TSH 1.455 Urine Color Urine Appearance Urine pH Ur Specific [place] Urine Protein Urine Glucose (UA) Urine Ketones Urine Blood Urine Nitrate Urine Bilirubin Urine Urobilinogen Ur Leukocyte Esterase Urine RBC Urine WBC Ur Epithelial Cells Urine Bacteria Urine Culture Comments 02/02/20 04:24 pCO2 pO2 HCO3 Total CO2 Base Excess ABG pH Albumin Lipase Procalcitonin TSH Urine Color Yellow Urine Appearance Clear Urine pH 6.5 Ur Specific [place] 1.010 Urine Protein Negative Urine Glucose (UA) Negative Urine Ketones Negative Urine Blood Negative Urine Nitrate Negative Urine Bilirubin Negative Urine Urobilinogen Normal Ur Leukocyte Esterase Negative Urine RBC None seen Urine WBC 0-5 Ur Epithelial Cells 0-5 Urine Bacteria None seen Urine Culture Comments Culture to follow - EKG EKG #1 EKG: NSR, T-Wave inversion EKG Read: Interp. by me EKG Comments: EKG sinus tachycardia possible anterior myocardial infarction old age rate of 114 no acute changes when compared to October - X-Ray X-Ray #1 XRAY: chest X-Ray Interpretation: Interp. by me X-Ray Comments: No acute changes - CT/ULTRASOUND CT/Ultrasound Narrative: CT of the head is negative0 No findings to indicate pulmonary embolism distended gallbladder with Nina fibrosis diffuse adenopathy the remainder for chronic inflammatory disease or neoplastic process nonspecific intrapulmonary airspace disease likely pneumonia versus edema pneumonitis versus subsegmental atelectasis as described and esophagitis patchy lung airspace disease 7 predominantly within the right upper lobe groundglass lung parenchymal opacification centered with food in the superior bilateral perihilar spaces Departure - Departure Clinical Impression: Fever with leukocytosis and leukocyte count less than 20,000, Hypoxia, Altered mental status, unspecified, GERD (gastroesophageal reflux disease), Aspiration pneumonia, Pneumonia Disposition: Short Term Hospital Inpatient Condition: Stable Referrals: Matthew Berman DO [Primary Care Provider] -
[2020-02-02 03:35] LABS: Hematocrit 29.5 % (37.0-47.0); Hemoglobin 9.2 gm/dL (12.5-16.0); Mean Cell Volume 81.9 fl (78-100); Mean Corpuscular Hemoglobin 25.6 pg (27-31); Mean Corpuscular Hgb Conc 31.2 g/dl (32-36); Mean Platelet Volume 10.1 fl (8-12.5); Neutrophil # 12.8 K/mm3 (1.3-6.0); Neutrophil % 77.3 % (42-75.0); Platelet Count 358 K/mm3 (150-450); Red Cell Distribution Width 15.7 % (11.5-14.0); White Blood Count 16.6 K/mm3 (4.0-10.5)
[2020-02-02] MEDS ORDERED: ACETAMINOPHEN 500 MG TABLET PO ONE (03:37)
[2020-02-02 03:52] LABS: Troponin I Less than 0.017 ng/mL (0.00-0.10)
[2020-02-02 03:56] LABS: ALT 15 U/L (19-67); AST 20 U/L (0-48); Albumin * 3.2 gm/dl (3.4-5.0); Alkaline Phosphatase * 71 U/L (50-170); Anion Gap 14.1 mmol/L (6.8-13.8); BNP * 179 pg/mL (5-550); BUN/Creatinine Ratio 10.7 (9.0-21.6); Bilirubin, Total 0.3 mg/dL (0.0-1.1); Blood Urea Nitrogen 11 mg/dL (3-23); Calcium * 8.7 mg/dL (7.9-10.9); Carbon Dioxide 27.4 mmol/L (24-32.6); Chloride 100 mmol/L (97-106); Glucose * 123 mg/dL (70-110); Lipase 70 U/L (73-393); Potassium 4.5 mmol/L (3.4-4.6); Sodium 137 mmol/L (132-142); TSH * 1.455 uIU/mL (0.358-3.74); Total Protein 7.1 gm/dL (6.2-8.2)
[2020-02-02 03:58] LABS: Cocaine Ur Negative (NEGATIVE); Urine Barbiturate Negative (NEGATIVE); Urine PCP Negative (NEGATIVE); Urine THC Negative (NEGATIVE)
[2020-02-02 03:59] LABS: INR 1.01 INR (0.92-1.08); Partial Thrombolplastin Time 28.7 Seconds (24-32); Urine Benzodiazepines Positive (NEGATIVE); Urine Opiates Positive (NEGATIVE)
[2020-02-02 04:28] LABS: Urine Appearance Clear (CLEAR); Urine Bacteria None Seen; Urine Bilirubin Negative (NEGATIVE); Urine Blood Negative /ul (NEGATIVE); Urine Color Yellow; Urine Ketone Negative (NEGATIVE); Urine Nitrite Negative (NEGATIVE); Urine Protein Negative (NEGATIVE); Urine RBC None Seen /hpf (0-5); Urine Urobilinogen Normal (NORMAL); Urine WBC 0-5 /hpf (0-5); Urine pH 6.5 pH (5.0-7.0)
[2020-02-02] MEDS ORDERED: AMPICILLIN SODIUM/SULBACTAM NA 1.5 GM in NORMAL SALINE 100 ML IV SCH (05:30)
[2020-02-02] MEDS ORDERED: ALPRAZolam 0.5 MG TABLET PO PRN (11:07)
[2020-02-02] MEDS ORDERED: ACETAMINOPHEN WITH CODEINE 1 EACH TABLET PO PRN (11:07)
--- NOTE | 2020-02-02 11:10 | HP ---
Chief Complaint - Chief Complaint Date of Service: 02/02/20 Time of Service: 11:10 Chief Complaint: Confusion History of Present Illness: Lesvia is a 75 yo female with history of GERD and pneumonia a few months ago. There was concern for possible aspiration at that time but none was seen on evaluation. This morning she was apparently disoriented so her brought her to the ER. At this moment she reports doing well and has no concerns. She is alert and oriented x 3 and has no evidence of confusion. She denies fever, chills, cough, or shortness of breath. She was documented as having a fever in the ER but that was during the time she was confused. She currently has no concerns. WBC was elevated at 16k and Chest xray and chest CT showed evidence or right middle lobe pneumonia. Medical History (Last Reviewed 02/02/20 @ 07:29 by Rosa Kramer RN) Trigger finger of right hand (Chronic) 3rd and 5th Rheumatoid arteritis (Chronic) hands Migraine (Chronic) Hypothyroidism (Chronic) Hypertension (Chronic) Hyperlipidemia (Chronic) GERD (gastroesophageal reflux disease) (Chronic) Anxiety (Chronic) Fever (Acute) Pneumonia (Acute) Lactic acid increased (Acute) Sepsis (Acute) Migraine (Chronic) HLD (hyperlipidemia) (Chronic) GERD (gastroesophageal reflux disease) (Chronic) Hypothyroidism (Chronic) Anxiety (Chronic) Surgical History: Surgical History (Last Reviewed 02/02/20 @ 07:29 by Rosa Kramer RN) History of Dot fundoplication Onset Date: ~1994 [place] History of cystocele Onset Date: ~1997 History of esophagogastroduodenoscopy (EGD) Onset Date: ~05/19/16 ' Tomasz-mild chronic gastritis, Lang's, chronic reflux esophagitis. ' Shruthi-chronic esophagitis w/Lang mucosa, no dysplasia. History of hammer toe correction Onset Date: ~1994 left and right 4th and 5th toes History of pubovaginal sling Onset Date: ~2008 History of tonsillectomy Onset Date: ~1961 History of total vaginal hysterectomy (TVH) Onset Date: Unknown Family History: Family History (Last Reviewed 02/02/20 @ 07:29 by Rosa Kramer RN) Sister Diabetes Hypertension Obesity Father , age 78 Myocardial infarction massive Diabetes CAD (coronary artery disease) Prostate disease Mother , age 83-d/c'd 4 weeks after her Cancer Pancreatic CA Aunt Diabetes Uncle Diabetes Social History: (Last Reviewed 02/02/20 @ 07:29 by Rosa Kramer RN) Social History: Marital status: household members: spouse current occupational status: retired Highest education level completed: some college, no degree Service: No Tobacco: Smoking Status: Former smoker Alcohol: alcohol intake: current Substance Use: substance use type: does not use Dietary Habits: caffeine: Yes Review Of Systems (GEN) - Review of Systems Generalized/Overall Review: Present: Fever - based on chart review, she does not recall this. Absent: Weakness, Chills EENTM: Present: No Symptoms Reported Respiratory: Absent: Cough, Shortness of Breath Cardiac: Absent: Chest Pain, Edema, Palpitations Abdominal: Absent: Nausea, Vomiting Genitourinary: Absent: Burning, Urgency Musculoskeletal: Absent: Joint Pain, Back Pain Neurological: Absent: Headache, Anxiety Skin: Absent: Dryness, Lesions Immunizations: IMMUNIZATION HX Immunizations Up to Date Yes History of Influenza Vaccine Yes Hx Pneumococcal Vaccination Yes Allergies/Adverse Reactions: Allergies Allergy/AdvReac Type Severity Reaction Status Date / Time escitalopram oxalate Allergy Severe lips Verified 02/02/20 07:29 [From Lexapro] swelling, difficulty swollowing sertraline [From Zoloft] Allergy Intermediate Lip/tongue Verified 02/02/20 07:29 swelling Home Medications: HOME MEDICATIONS famotidine 20 mg tablet 20 mg PO BID #180 tab 04/18/18 [Last Taken 11/08/19] Aspirin [Aspir-Low] 81 mg PO DAILY 08/17/19 [Last Taken 11/08/19] Albuterol Sulfate [Proair Hfa] 2 puff INHALATION BID #1 inhaler 08/20/19 [Last Taken Unknown] duloxetine 30 mg capsule,delayed release 30 mg PO DAILY #90 cap 08/27/19 [Last Taken 11/08/19] alprazolam 0.5 mg tablet 0.5 mg PO BID PRN #180 tab 09/28/19 [Last Taken Unknown] levothyroxine 88 mcg tablet 88 mcg PO DAILY #90 tab 11/09/19 [Last Taken 11/08/19] Lactobacillus Acidophilus [Bacid] 1 ea PO DAILY #21 cap 11/17/19 [Last Taken Unknown] Pantoprazole Sodium [Protonix] 40 mg PO BID@0700,1700 #60 tablet. 11/17/19 [Last Taken Unknown] acetaminophen 300 mg-codeine 60 mg tablet 1 tab PO Q6H PRN #120 tab 11/26/19 [Last Taken Unknown] amitriptyline 150 mg tablet 150 mg PO HS #90 tab 12/04/19 [Last Taken Unknown] Ondansetron HCl [Zofran] 8 mg PO Q8H PRN 02/02/20 [Last Taken Unknown] Tylenol with Codeine #4 Tablet 02/02/20 [Last Taken Unknown] Exam - Exam Vital Signs: Vital Signs - Last Taken Temp 36.6 C 02/02/20 10:10 Pulse 100 02/02/20 10:10 Resp 16 02/02/20 10:10 BP 119/58 02/02/20 10:10 Pulse Ox 100 02/02/20 10:10 Constitutional: Present: Alert, Oriented x3, Cooperative ENT Exam: Present: hearing grossly normal Eye Exam: bilateral eye: normal inspection Respiratory: Present: rales - right middle lobe. Absent: respiratory distress Cardiovascular/Chest: Present: regular rate, rhythm, no murmur Peripheral Pulses: radial (R): 2+, radial (L): 2+ Abdomen: Present: Normal bowel sounds, soft, nontender, nondistended, no rebound tenderness Diagnostic Studies: Abnormal Lab Results 02/02/20 02/02/20 02/02/20 Range/Units 03:20 03:20 03:20 WBC 16.6 H (4.0-10.5) K/mm3 RBC 3.60 L (4.2-5.4) M/mm3 Hgb 9.2 L (12.5-16.0) gm/dL Hct 29.5 L (37.0-47.0) % MCH 25.6 L (27-31) pg MCHC 31.2 L (32-36) g/dl RDW 15.7 H (11.5-14.0) % Immature Gran % (Auto) 0.50 H (0.001-0.429) % Immature Gran # (Auto) 0.09 H (0.000-0.0310) K/mm3 Neutrophils % 77.3 H (42-75.0) % Lymphocytes % 12.1 L (20-51) % Neutrophils # 12.8 H (1.3-6.0) K/mm3 Monocytes # 1.2 H (0.0-1.0) k/mm3 D-Dimer 0.90 H (0.19-0.49) ug/mL pO2 (83.0-108.0) mmHg Total CO2 (19.0-24.0) mmol/L ABG O2 Sat (Measured) (94.0-98.0) % Anion Gap 14.1 H (6.8-13.8) mmol/L Est GFR (Non-Af Amer) 55 L D (60-130) mL/min Random Glucose 123 H (70-110) mg/dL ALT 15 L (19-67) U/L Albumin 3.2 L (3.4-5.0) gm/dl Lipase 70 L (73-393) U/L Procalcitonin (0.05-0.50) ng/mL Urine Opiates Screen (NEGATIVE) U Benzodiazepines Scrn (NEGATIVE) 02/02/20 02/02/20 02/02/20 Range/Units 03:20 03:20 04:10 WBC (4.0-10.5) K/mm3 RBC (4.2-5.4) M/mm3 Hgb (12.5-16.0) gm/dL Hct (37.0-47.0) % MCH (27-31) pg MCHC (32-36) g/dl RDW (11.5-14.0) % Immature Gran % (Auto) (0.001-0.429) % Immature Gran # (Auto) (0.000-0.0310) K/mm3 Neutrophils % (42-75.0) % Lymphocytes % (20-51) % Neutrophils # (1.3-6.0) K/mm3 Monocytes # (0.0-1.0) k/mm3 D-Dimer (0.19-0.49) ug/mL pO2 60.5 L (83.0-108.0) mmHg Total CO2 25.7 H (19.0-24.0) mmol/L ABG O2 Sat (Measured) 91.0 L (94.0-98.0) % Anion Gap (6.8-13.8) mmol/L Est GFR (Non-Af Amer) (60-130) mL/min Random Glucose (70-110) mg/dL ALT (19-67) U/L Albumin (3.4-5.0) gm/dl Lipase (73-393) U/L Procalcitonin Less than 0.05 L (0.05-0.50) ng/mL Urine Opiates Screen Positive H (NEGATIVE) U Benzodiazepines Scrn Positive H (NEGATIVE) Laboratory Results WBC 16.6 K/mm3 (4.0-10.5) H 02/02/20 03:20 RBC 3.60 M/mm3 (4.2-5.4) L 02/02/20 03:20 Hgb 9.2 gm/dL (12.5-16.0) L 02/02/20 03:20 Hct 29.5 % (37.0-47.0) L 02/02/20 03:20 MCV 81.9 fl (78-100) 02/02/20 03:20 MCH 25.6 pg (27-31) L 02/02/20 03:20 MCHC 31.2 g/dl (32-36) L 02/02/20 03:20 RDW 15.7 % (11.5-14.0) H 02/02/20 03:20 Plt Count 358 K/mm3 (150-450) 02/02/20 03:20 MPV 10.1 fl (8-12.5) 02/02/20 03:20 Immature Gran % (Auto) 0.50 % (0.001-0.429) H 02/02/20 03:20 Immature Gran # (Auto) 0.09 K/mm3 (0.000-0.0310) H 02/02/20 03:20 Neutrophils % 77.3 % (42-75.0) H 02/02/20 03:20 Lymphocytes % 12.1 % (20-51) L 02/02/20 03:20 Monocytes % 7.1 % (0.0-9) 02/02/20 03:20 Eosinophils % 2.3 % (0.0-3.0) 02/02/20 03:20 Basophils % 0.7 % (0.0-1.0) 02/02/20 03:20 Nucleated RBC % 0.0 k/mm3 (0-1) 02/02/20 03:20 Neutrophils # 12.8 K/mm3 (1.3-6.0) H 02/02/20 03:20 Lymphocytes # 2.01 k/mm3 (1.5-3.5) 02/02/20 03:20 Monocytes # 1.2 k/mm3 (0.0-1.0) H 02/02/20 03:20 Eosinophils # 0.4 k/mm3 (0.0-0.7) 02/02/20 03:20 Absolute Basophils 0.1 k/mm3 (0.0-0.1) 02/02/20 03:20 PT 10.0 Seconds (9.1-10.7) 02/02/20 03:20 INR (Anticoag Therapy) 1.01 INR (0.92-1.08) 02/02/20 03:20 PTT ([place]) 28.7 Seconds (24-32) 02/02/20 03:20 D-Dimer 0.90 ug/mL (0.19-0.49) H 02/02/20 03:20 pCO2 41.3 mmHg (32.0-45.0) 02/02/20 04:10 pO2 60.5 mmHg (83.0-108.0) L 02/02/20 04:10 HCO3 24.4 mmol/L (21.0-28.0) 02/02/20 04:10 Total CO2 25.7 mmol/L (19.0-24.0) H 02/02/20 04:10 Base Excess -0.5 mmol/L (-2.0-3.0) 02/02/20 04:10 ABG pH 7.39 (7.35-7.45) 02/02/20 04:10 ABG O2 Sat (Measured) 91.0 % (94.0-98.0) L 02/02/20 04:10 Sodium 137 mmol/L (132-142) 02/02/20 03:20 Plasma Sodium 137 mmol/L (130-142) 02/02/20 03:20 Potassium 4.5 mmol/L (3.4-4.6) D 02/02/20 03:20 Chloride 100 mmol/L (97-106) 02/02/20 03:20 Carbon Dioxide 27.4 mmol/L (24-32.6) 02/02/20 03:20 Anion Gap 14.1 mmol/L (6.8-13.8) H 02/02/20 03:20 BUN 11 mg/dL (3-23) D 02/02/20 03:20 Creatinine 1.03 mg/dL (0.4-1.4) 02/02/20 03:20 Est GFR (Non-Af Amer) 55 mL/min (60-130) L D 02/02/20 03:20 BUN/Creatinine Ratio 10.7 (9.0-21.6) 02/02/20 03:20 Random Glucose 123 mg/dL (70-110) H 02/02/20 03:20 Lactic Acid, Venous 1.7 mmol/L (0.4-2.0) 02/02/20 03:20 Calcium 8.7 mg/dL (7.9-10.9) 02/02/20 03:20 Calcium Adj for Albumin 9.0 mg/dL (8.4-10.2) 02/02/20 03:20 Total Bilirubin 0.3 mg/dL (0.0-1.1) 02/02/20 03:20 AST 20 U/L (0-48) 02/02/20 03:20 ALT 15 U/L (19-67) L 02/02/20 03:20 Alkaline Phosphatase 71 U/L (50-170) 02/02/20 03:20 Troponin I Less than 0.017 ng/mL (0.00-0.10) 02/02/20 03:20 B-Natriuretic Peptide 179 pg/mL (5-550) 02/02/20 03:20 Total Protein 7.1 gm/dL (6.2-8.2) 02/02/20 03:20 Albumin 3.2 gm/dl (3.4-5.0) L 02/02/20 03:20 Lipase 70 U/L (73-393) L 02/02/20 03:20 Procalcitonin Less than 0.05 ng/mL (0.05-0.50) L 02/02/20 03:20 TSH 1.455 uIU/mL (0.358-3.74) 02/02/20 03:20 Urine Color Yellow 02/02/20 04:24 Urine Appearance Clear (CLEAR) 02/02/20 04:24 Urine pH 6.5 pH (5.0-7.0) 02/02/20 04:24 Ur Specific [place] 1.010 SP.GR. (1.005-1.010) 02/02/20 04:24 Urine Protein Negative mg/dL (NEGATIVE) 02/02/20 04:24 Urine Glucose (UA) Negative mg/dL (NEGATIVE) 02/02/20 04:24 Urine Ketones Negative mg/dL (NEGATIVE) 02/02/20 04:24 Urine Blood Negative /ul (NEGATIVE) 02/02/20 04:24 Urine Nitrate Negative (NEGATIVE) 02/02/20 04:24 Urine Bilirubin Negative mg/dl (NEGATIVE) 02/02/20 04:24 Urine Urobilinogen Normal EU/dl (NORMAL) 02/02/20 04:24 Ur Leukocyte Esterase Negative /ul (NEGATIVE) 02/02/20 04:24 Urine RBC None seen /hpf (0-5) 02/02/20 04:24 Urine WBC 0-5 /hpf (0-5) 02/02/20 04:24 Ur Epithelial Cells 0-5 /hpf (0-5) 02/02/20 04:24 Urine Bacteria None seen (NONE) 02/02/20 04:24 Urine Culture Comments Culture to follow 02/02/20 04:24 Urine Opiates Screen Positive (NEGATIVE) H 02/02/20 03:20 Barbiturate Screen Negative (NEGATIVE) 02/02/20 03:20 Ur Phencyclidine Scrn Negative (NEGATIVE) 02/02/20 03:20 Urine Amphetamine Negative (NEGATIVE) 02/02/20 03:20 U Benzodiazepines Scrn Positive (NEGATIVE) H 02/02/20 03:20 Urine Cocaine Screen Negative (NEGATIVE) 02/02/20 03:20 Urine Marijuana (THC) Negative (NEGATIVE) 02/02/20 03:20 Assessment/Plan - Assessment/Plan (1) Aspiration pneumonia Assessment: Lesvia is a 75 yo female with aspiration pneumonia in right middle lobe based on chest xra, chest CT, and WBC. She is chronically on PPI which has increased risk for aspiration. She has had episodes of reflux and coughing or choking after eating, although she denies any recent episodes. She was started on unasyn in the ER. Will continue this. She had confusion upon presentation to the ER but this has resolved. No evidence of sepsis. She is currently on 2lpm of oxygen via NC but I see no evidence of hypoxia so will wean off oxygen as able. Will hold PPI at this time. Due to admission with respiraotry illness she was swabbed for COVID which is currently pending. Will admit into negative pressure room. Expect evaluation and treatment of >2 midnights for aspiration pneumonia, will admit to acute inpatient treatment. Problem: Acute Qualifiers: Laterality: right Lung location: middle lobe of lung
[2020-02-02] MEDS: DULoxetine HCL 30 MG CAPSULE.SA PO SCH (12:10)
[2020-02-02] MEDS: LEVOTHYROXINE SODIUM 88 MCG TABLET PO SCH (12:10)
[2020-02-02] MEDS: FAMOTIDINE 20 MG TABLET PO SCH ×2 (12:10→20:22)
[2020-02-02] MEDS: AMPICILLIN SODIUM/SULBACTAM NA 1.5 GM in NORMAL SALINE 100 ML IV SCH ×3 (12:16→23:10)
[2020-02-02] MEDS: ONDANSETRON HCL 8 MG TABLET PO PRN (14:58)
[2020-02-02] MEDS: ALBUTEROL SULFATE 60 PUFF INHALER IH SCH (20:21)
[2020-02-02] MEDS ORDERED: ALBUTEROL SULFATE 200 PUFF INHALER IH SCH (21:00)
[2020-02-02] MEDS ORDERED: AMITRIPTYLINE HCL 50 MG TABLET PO SCH (21:00)
[2020-02-03] MEDS: AMPICILLIN SODIUM/SULBACTAM NA 1.5 GM in NORMAL SALINE 100 ML IV SCH ×2 (05:04→11:19)
[2020-02-03] MEDS: LEVOTHYROXINE SODIUM 88 MCG TABLET PO SCH (08:03)
[2020-02-03] MEDS: DULoxetine HCL 30 MG CAPSULE.SA PO SCH (08:03)
[2020-02-03] MEDS: FAMOTIDINE 20 MG TABLET PO SCH (08:04)
[2020-02-03] MEDS: ONDANSETRON HCL 8 MG TABLET PO PRN (08:05)
[2020-02-03] MEDS: ALBUTEROL SULFATE 60 PUFF INHALER IH SCH (08:19)
[2020-02-03] MEDS ORDERED: LACTOBACILLUS ACIDOPHILUS 1 EACH CAPSULE PO SCH (09:00)
[2020-02-03] MEDS ORDERED: ASPIRIN 81 MG TABLET.DR PO SCH (09:00)
[2020-02-03 11:12] LABS: Hematocrit 29.6 % (37.0-47.0); Mean Cell Volume 82.7 fl (78-100); Mean Corpuscular Hemoglobin 25.1 pg (27-31); Mean Corpuscular Hgb Conc 30.4 g/dl (32-36); Mean Platelet Volume 9.6 fl (8-12.5); Neutrophil # 9.8 K/mm3 (1.3-6.0); Neutrophil % 75.2 % (42-75.0); Platelet Count 323 K/mm3 (150-450); Red Blood Count 3.58 M/mm3 (4.2-5.4); Red Cell Distribution Width 15.9 % (11.5-14.0)
--- NOTE | 2020-02-03 11:45 | DS ---
(1) Altered mental status, unspecified Problem: Resolved (2) Aspiration pneumonia Problem: Ruled-out (3) Pneumonia Problem: Acute (4) GERD (gastroesophageal reflux disease) Problem: Chronic (5) Leukocytosis Problem: Acute (6) GERD (gastroesophageal reflux disease) Problem: Chronic Date of Discharge:: 02/03/20 Hospital Course: 75-year-old female admitted for right middle lobe pneumonia versus aspiration pneumonia and confusion was evaluated at bedside and was found to be afebrile and in no acute distress. Patient has shown clinical improvement since arriving at our institution, she appears comfortable and denies any shortness of breath or cough. She is currently saturating at 98% on room air and maintained stable vitals. There has been no recurrence of fever during hospitalization and no adverse events were reported by nursing staff this admission. Labs done this morning demonstrate improvement of her leukocytosis and her blood culture is negative for 24 hours. During rounds this morning the patient expressed a desire to go home and says she does not understand why she is being kept in the hospital. It was explained to the patient that she was admitted for observation and treatment of bronchopneumonia that subsequently led to delirium. However, since she is showing clinical improvement the attending physician who happens to be her PCP agrees that it is okay for her to be discharged home with additional days of p.o. antibiotics in order for CBC to be done in 3 to 5 days. She was instructed to follow-up with her PCP next week. Procedures Performed: none Results and Findings: Pending Mircobiology Results 02/02/20 03:20 Urine,Catheterized Urine Culture - Preliminary No Growth 02/02/20 04:10 Blood Blood Culture - Preliminary NO GROWTH 24 HOURS 02/02/20 03:20 Blood Blood Culture - Preliminary NO GROWTH 24 HOURS Lab Pending Results 02/02/20 03:20: WBC 16.6 H, RBC 3.60 L, Hgb 9.2 L, Hct 29.5 L, MCV 81.9, MCH 25.6 L, MCHC 31.2 L, RDW 15.7 H, Plt Count 358, MPV 10.1, Immature Gran % (Auto) 0.50 H, Immature Gran # (Auto) 0.09 H, Neutrophils % 77.3 H, Lymphocytes % 12.1 L, Monocytes % 7.1, Eosinophils % 2.3, Basophils % 0.7, Nucleated RBC % 0.0, Neutrophils # 12.8 H, Lymphocytes # 2.01, Monocytes # 1.2 H, Eosinophils # 0.4, Absolute Basophils 0.1 02/02/20 03:20: PT 10.0, INR (Anticoag Therapy) 1.01, PTT ([place]) 28.7 02/02/20 03:20: Sodium 137, Plasma Sodium 137, Potassium 4.5 D, Chloride 100, Carbon Dioxide 27.4, Anion Gap 14.1 H, BUN 11 D, Creatinine 1.03, Est GFR (Non- Af Amer) 55 L D, BUN/Creatinine Ratio 10.7, Random Glucose 123 H, Calcium 8.7, Calcium Adj for Albumin 9.0, Total Bilirubin 0.3, AST 20, ALT 15 L, Alkaline Phosphatase 71, Troponin I Less than 0.017, B-Natriuretic Peptide 179, Total Protein 7.1, Albumin 3.2 L, Lipase 70 L, TSH 1.455 02/02/20 03:20: D-Dimer 0.90 H 02/02/20 03:20: Lactic Acid, Venous 1.7 02/02/20 03:20: Procalcitonin Less than 0.05 L 02/02/20 03:20: Urine Opiates Screen Positive H, Barbiturate Screen Negative, Ur Phencyclidine Scrn Negative, Urine Amphetamine Negative, U Benzodiazepines Scrn Positive H, Urine Cocaine Screen Negative, Urine Marijuana (THC) Negative 02/02/20 03:20: SARS-CoV-2 (PCR) Not detected 02/02/20 04:10: pCO2 41.3, pO2 60.5 L, HCO3 24.4, Total CO2 25.7 H, Base Excess -0.5, ABG pH 7.39, ABG O2 Sat (Measured) 91.0 L 02/02/20 04:24: Urine Color Yellow, Urine Appearance Clear, Urine pH 6.5, Ur Specific [place] 1.010, Urine Protein Negative, Urine Glucose (UA) Negative, Urine Ketones Negative, Urine Blood Negative, Urine Nitrate Negative, Urine Bilirubin Negative, Urine Urobilinogen Normal, Ur Leukocyte Esterase Negative, Urine RBC None seen, Urine WBC 0-5, Ur Epithelial Cells 0-5, Urine Bacteria None seen, Urine Culture Comments Culture to follow 02/03/20 11:07: WBC 13.0 H D, RBC 3.58 L, Hgb 9.0 L, Hct 29.6 L, MCV 82.7, MCH 25.1 L, MCHC 30.4 L, RDW 15.9 H, Plt Count 323, MPV 9.6, Immature Gran % (Auto) 1.20 H, Immature Gran # (Auto) 0.15 H, Neutrophils % 75.2 H, Lymphocytes % 18.9 L, Monocytes % 3.7, Eosinophils % 0.1, Basophils % 0.9, Nucleated RBC % 0.0, Neutrophils # 9.8 H, Lymphocytes # 2.46, Monocytes # 0.5, Eosinophils # 0.0, Absolute Basophils 0.1 Discharge Location: Home Disposition: Home self-care Condition: Stable Face to Face Encounter completed per [facility] Guidelines: No Discharge Activity: Activity as tolerated Discharge Diet: General/regular food Prescriptions (Any new or edited meds): Levofloxacin [Levaquin] 750 mg PO DAILY 5 Days #5 tab Transmission Status: Pending to [facility] Complete Home Medications List: Complete Home Medication List: famotidine 20 mg tablet 20 mg PO BID #180 tab 04/18/18 Aspirin [Aspir-Low] 81 mg PO DAILY 08/17/19 Albuterol Sulfate [Proair Hfa] 2 puff INHALATION BID #1 inhaler 08/20/19 duloxetine 30 mg capsule,delayed release 30 mg PO DAILY #90 cap 08/27/19 alprazolam 0.5 mg tablet 0.5 mg PO BID PRN #180 tab 09/28/19 levothyroxine 88 mcg tablet 88 mcg PO DAILY #90 tab 11/09/19 Lactobacillus Acidophilus [Bacid] 1 ea PO DAILY #21 cap 11/17/19 Pantoprazole Sodium [Protonix] 40 mg PO BID@0700,1700 #60 tablet.dr 11/17/19 acetaminophen 300 mg-codeine 60 mg tablet 1 tab PO Q6H PRN #120 tab 11/26/19 amitriptyline 150 mg tablet 150 mg PO HS #90 tab 12/04/19 Ondansetron HCl [Zofran] 8 mg PO Q8H PRN 02/02/20 Levofloxacin [Levaquin] 750 mg PO DAILY 5 Days #5 tab 02/03/20 Forms: Patient Portal Registration
[2020-02-03 13:00] VITALS: BP 135/79
== END 2020-02-03 13:30 | disposition home or self-care (01) ==
LOC: ER 03:03 → MS 06:07 → INTOOBSV 06:07 → MS 20:03
PROVIDERS: ADMIT Family Medicine; ATTEND Family Medicine

== ENCOUNTER 2021-02-08 21:13 | Inpatient (IN) ==
[2021-02-08] MEDS ORDERED: ALBUTEROL SULFATE/IPRATROPIUM 3 ML NEBU IH ONE (22:34)
[2021-02-08] MEDS ORDERED: NORMAL SALINE 1,000 ML IV ONE (22:34)
--- NOTE | 2021-02-08 22:39 | ERNOTE ---
Date of Service: 02/08/21 Time Seen by Provider: 02/08/21 22:29 Stated Complaint: FEVER AND LOW O2 Presenting Symptoms:: cough, fever Source: patient, family Exam Limitations: no limitations Immunizations: IMMUNIZATION HX Immunizations Up to Date Yes History of Influenza Vaccine More Information Required Hx Pneumococcal Vaccination More Information Required Allergies/Adverse Reactions: Allergies escitalopram oxalate [From Lexapro] Allergy (Severe, Verified 11/17/20 08:41) lips swelling, difficulty swollowing sertraline [From Zoloft] Allergy (Intermediate, Verified 11/17/20 08:41) Lip/tongue swelling Home Medications: HOME MEDICATIONS famotidine 20 mg tablet 20 mg PO BID #180 tab 04/18/18 [Last Taken 11/08/19] Aspirin [Aspir-Low] 81 mg PO DAILY 08/17/19 [Last Taken 11/08/19] Lactobacillus Acidophilus [Bacid] 1 ea PO DAILY #21 cap 11/17/19 [Last Taken Unknown] azithromycin 250 mg tablet See Rx Instructions PO .COMPLEX #6 tab 06/14/20 [Last Taken Unknown] albuterol sulfate 90 mcg/actuation aerosol inhaler 2 puff INHALATION Q4H PRN #8.5 g 06/23/20 [Last Taken Unknown] ondansetron HCl 4 mg tablet 4 mg PO DAILY PRN #30 tab 09/09/20 [Last Taken Unknown] alprazolam 0.5 mg tablet 0.5 mg PO BID PRN #180 tab 09/26/20 [Last Taken Unknown] benzonatate 100 mg capsule 100 mg PO TID PRN #30 cap 10/21/20 [Last Taken Unknown] amitriptyline 150 mg tablet 150 mg PO HS #90 tab 11/17/20 [Last Taken Unknown] duloxetine 30 mg capsule,delayed release 30 mg PO DAILY #90 cap 11/17/20 [Last Taken Unknown] triamcinolone acetonide 0.1 % topical cream 1 applic TP BID PRN #80 g 11/17/20 [Last Taken Unknown] omeprazole 40 mg capsule,delayed release 40 mg PO BID #180 cap 12/18/20 [Last Taken Unknown] acetaminophen 300 mg-codeine 60 mg tablet 1 tab PO Q6H PRN #120 tab 02/03/21 [Last Taken Unknown] levothyroxine 88 mcg tablet 88 mcg PO DAILY #90 tab 02/03/21 [Last Taken Unknown] - History of Present Ilness Narrative: 76-year-old female earlier today she felt feverish and had some shortness of breath measured her pulse ox and it was low in the 70s and 80s he gave her some Tylenol for the fever she felt a little bit better but as the night went on sent her shortness of breath seem to be increasing in the pulse ox did change. She has a history of pneumonia in the past. Date (Duration): 02/08/21 Time (Timing): 22:37 Timing: constant Severity: moderate Frequency/Possible Cause: Reports: occasional episodes Modifying Factors - Improves: Reports: rest Modifying Factors - Worsens: Reports: activity Associated Symptoms: Reports: cough, shortness of breath Review of Systems - Review of Systems Constitutional: Present: fever, weakness EYE: Present: no symptoms reported ENT: Present: no symptoms reported Respiratory: Present: shortness of breath, cough Cardiology: Present: no symptoms reported Gastrointestinal/Abdominal: Present: nausea, other - Reflux Genitourinary: Present: no symptoms reported Musculoskeletal: Present: no symptoms reported Skin: Present: no symptoms reported Neurological: Present: no symptoms reported All Other Systems: All systems neg except as marked Medical History (Last Reviewed 02/08/21 @ 22:37 by Christian Rondon MD) Trigger finger of right hand (Chronic) 3rd and 5th Rheumatoid arteritis (Chronic) hands Migraine (Chronic) Hypothyroidism (Chronic) Hypertension (Chronic) Hyperlipidemia (Chronic) GERD (gastroesophageal reflux disease) (Chronic) Anxiety (Chronic) Fever (Acute) Pneumonia (Acute) Lactic acid increased (Acute) Sepsis (Acute) Migraine (Chronic) HLD (hyperlipidemia) (Chronic) GERD (gastroesophageal reflux disease) (Chronic) Hypothyroidism (Chronic) Anxiety (Chronic) Surgical History: Surgical History (Last Reviewed 02/08/21 @ 22:38 by Christian Rondon MD) History of Dot fundoplication Onset Date: ~1994 Jamul History of cystocele Onset Date: ~1997 History of esophagogastroduodenoscopy (EGD) Onset Date: ~05/19/16 '11 Tomasz-mild chronic gastritis, Lang's, chronic reflux esophagitis. '16 Shruthi-chronic esophagitis w/Lang mucosa, no dysplasia. History of hammer toe correction Onset Date: ~1994 left and right 4th and 5th toes History of pubovaginal sling Onset Date: ~2008 History of tonsillectomy Onset Date: ~1961 History of total vaginal hysterectomy (TVH) Onset Date: Unknown Family History: Family History (Last Reviewed 02/08/21 @ 21:19 by Dior Bellamy RN) Sister Diabetes Hypertension Obesity Father , age 78 Myocardial infarction massive Diabetes CAD (coronary artery disease) Prostate disease Mother , age 83-d/c'd 4 weeks after her Cancer Pancreatic CA Aunt Diabetes Uncle Diabetes Social History: (Last Updated 11/24/20 @ 18:23 by Matthew Berman DO) Social History: Marital status: household members: spouse current occupational status: retired Highest level of school completed/degree received: some college, no degree Service: No Tobacco: Smoking Status: Former smoker Alcohol: alcohol intake: current Substance Use: substance use type: does not use Dietary Habits: caffeine: Yes Physical Exam - Physical Exam General Appearance: Present: wd/wn, alert, mild distress Head Exam: Present: normal inspection Eye Exam: Normal inspection: bilateral Ears, Nose, Throat: Present: normal ENT inspection, dry mucous membranes Neck: Present: normal inspection Respiratory: Present: no respiratory distress Cardiovascular/Chest: Present: regular rate, rhythm Gastrointestinal/Abdominal: Present: normal bowel sounds, nontender Back Exam: Present: normal inspection Extremity Exam: Present: normal inspection Neurological Exam: Present: alert, oriented Skin Exam: Present: normal color Lymphatic Exam: Present: no adenopathy Progress - Results and Orders Patient's Lab Results:: I have reviewed the patient's lab results. Results and Orders: Laboratory Tests 02/08/21 02/08/21 22:45 22:45 WBC 28.7 H RBC 3.99 L Hgb 11.4 L Hct 35.8 L MCV 89.7 MCH 28.6 MCHC 31.8 L Plt Count 305 Neutrophils % (Manual) 78 H Band Neuts % (Manual) 13 H Sodium 135 Plasma Sodium 135 Potassium 4.5 Chloride 100 Carbon Dioxide 27.2 Anion Gap 12.3 BUN 12 Creatinine 0.96 Est GFR (Non-Af Amer) 60 BUN/Creatinine Ratio 12.5 Random Glucose 127 H Calcium 8.6 Calcium Adj for Albumin 8.8 Total Bilirubin 0.4 AST 20 ALT 17 L Alkaline Phosphatase 84 Total Protein 7.4 Albumin 3.3 L - Vital Signs Patient's Vital Signs:: I have reviewed the patient's vital signs. Vital Signs: Vital Signs 02/08/21 21:20 Temperature 37.4 C Pulse Rate 114 H Blood Pressure 116/57 O2 Sat by Pulse Oximetry 93 - X-Ray X-Ray #1 X-Ray: chest Interpretation: Interp. by me X-ray Comments: Lower lobe infiltrate consistent with pneumonia According to the radiologist there is a left basilar airspace opacities obscuring the left hemidiaphragm concerning for pneumonia - Progress/Reassessment Chief Complaint: Upper Respiratory Symptoms Progress Note-Subjective: 02/08/21 23:58 Patient's chest x-ray seems like it is has pneumonia will begin with Rocephin Plan - Plan Plan: Patient will be admitted to the hospital Dr. Haney. Departure Clinical Impression: Pneumonia - Departure Disposition: Short Term Hospital Inpatient Condition: Fair Additional Instructions: Admit to Dr. Haney Referrals: Matthew Berman DO [Primary Care Provider] -
[2021-02-08 22:56] LABS: Hematocrit 35.8 % (37.0-47.0); Hemoglobin 11.4 gm/dL (12.5-16.0); Mean Cell Volume 89.7 fl (78-100); Mean Corpuscular Hemoglobin 28.6 pg (27-31); Mean Corpuscular Hgb Conc 31.8 g/dl (32-36); Mean Platelet Volume 10.1 fl (8-12.5); Platelet Count 305 K/mm3 (150-450); Red Blood Count 3.99 M/mm3 (4.2-5.4); Red Cell Distribution Width 14.3 % (11.5-14.0); White Blood Count 28.7 K/mm3 (4.0-10.5)
[2021-02-08 23:08] LABS: Total Cells Counted 100
[2021-02-08 23:15] LABS: Albumin * 3.3 gm/dl (3.4-5.0); Anion Gap 12.3 mmol/L (6.8-13.8); BUN/Creatinine Ratio 12.5 (9.0-21.6); Bilirubin, Total 0.4 mg/dL (0.0-1.1); Ca. Corrected For Albumin 8.8 mg/dL (8.4-10.2); Calcium * 8.6 mg/dL (7.9-10.9); Carbon Dioxide 27.2 mmol/L (24-32.6); Potassium 4.5 mmol/L (3.4-4.6); Total Protein 7.4 gm/dL (6.2-8.2)
[2021-02-08 23:23] LABS: Band 13 % (0-2.0); Eosinophil 1 % (0-3); Lymphocyte 6 % (20-51); Monocyte 2 % (0-9); Neutrophil 78 % (42-75); Neutrophil # 22.4 K/mm3 (1.3-6.0); Platelet Estimate Normal (NORMAL); RBC Morphology Normal (NORMAL)
[2021-02-08] MEDS ORDERED: cefTRIAXone SODIUM 1,000 MG/100 ML BAG IV ONE (23:57)
[2021-02-09] MEDS ORDERED: AZITHROMYCIN 500 MG in DEXTROSE 5 % IN WATER 250 ML IV ONE ×2 (01:00)
[2021-02-09] MEDS ORDERED: ACETAMINOPHEN 325 MG TABLET PO PRN (10:40)
[2021-02-09] MEDS ORDERED: BENZONATATE 100 MG CAPSULE PO PRN (10:43)
[2021-02-09] MEDS ORDERED: ONDANSETRON HCL 4 MG TABLET PO PRN (10:43)
[2021-02-09] MEDS ORDERED: ALPRAZolam 0.5 MG TABLET PO PRN (10:43)
[2021-02-09] MEDS ORDERED: guaiFENesin/DEXTROMETHORPHAN SYRUP PO PRN (10:47)
--- NOTE | 2021-02-09 11:20 | HP ---
Chief Complaint - Chief Complaint Date of Service: 02/09/21 Time of Service: 11:04 Chief Complaint: I have been coughing, short of breath, have fever and chest congestion since yesterday. History of Present Illness: 76-year-old female with past medical history of recurrent bronchopneumonia, anxiety, GERD, hyperlipidemia, and hypothyroidism was brought to the ER by her for evaluation of fever chills, persistent cough, chest congestion, and shortness of breath that all started yesterday morning. Patient reports she attended her granddaughter's birthday alliance party Tuesday afternoon and had sandwiches that were catered by [employer]. Patient became aware that the sandwich containing avocado and jalapeno peppers jail through eating it and realized too late that she should have consumed. She reports those foods cause her acid reflux to worsen causing her to aspirate into her lungs. The patient explained that this has has happened twice in the past causing her to be hospitalized each time. After leaving the alliance party the patient went home and by the evening she developed a fever and started feeling ill. By the next morning the patient developed a significant productive cough accompanied by shortness of breath. Her also heard her wheezing and became alarmed. Given her history of recurrent hospitalization due to pneumonia decision to bring her out for evaluation was made. Once in the ER the patient underwent a work-up that revealed significant leukocytosis on labs and a left lower lobe pneumonia on imaging. She was immediately started on IV fluids and dual antibiotics which she has tolerated without any issues. The patient was prescribed an inhaler by her PCP several months ago for her occasional shortness of breath but says she has not needed it in a while until now, she denies any history of asthma or any other respiratory disease. Medical History (Last Reviewed 02/09/21 @ 01:04 by Jessica Cheek RN) Trigger finger of right hand (Chronic) 3rd and 5th Rheumatoid arteritis (Chronic) hands Migraine (Chronic) Hypothyroidism (Chronic) Hypertension (Chronic) Hyperlipidemia (Chronic) GERD (gastroesophageal reflux disease) (Chronic) Anxiety (Chronic) Fever (Acute) Pneumonia (Acute) Lactic acid increased (Acute) Sepsis (Acute) Migraine (Chronic) HLD (hyperlipidemia) (Chronic) GERD (gastroesophageal reflux disease) (Chronic) Hypothyroidism (Chronic) Anxiety (Chronic) Surgical History: Surgical History (Last Reviewed 02/09/21 @ 01:04 by Jessica Cheek RN) History of Dot fundoplication Onset Date: ~1994 Jovi Najera History of cystocele Onset Date: ~1997 History of esophagogastroduodenoscopy (EGD) Onset Date: ~05/19/16 ' Tomasz-mild chronic gastritis, Lang's, chronic reflux esophagitis. '16 Shruthi-chronic esophagitis w/Lang mucosa, no dysplasia. History of hammer toe correction Onset Date: ~1994 left and right 4th and 5th toes History of pubovaginal sling Onset Date: ~2008 History of tonsillectomy Onset Date: ~1961 History of total vaginal hysterectomy (TVH) Onset Date: Unknown Family History: Family History (Last Reviewed 02/09/21 @ 01:04 by Jessica Cheek RN) Sister Diabetes Hypertension Obesity Father , age 78 Myocardial infarction massive Diabetes CAD (coronary artery disease) Prostate disease Mother , age 83-d/c'd 4 weeks after her Cancer Pancreatic CA Aunt Diabetes Uncle Diabetes Social History: (Last Updated 11/24/20 @ 18:23 by Matthew Berman DO) Social History: Marital status: household members: spouse current occupational status: retired Highest level of school completed/degree received: some college, no degree Service: No Tobacco: Smoking Status: Former smoker Alcohol: alcohol intake: current Substance Use: substance use type: does not use Dietary Habits: caffeine: Yes Peds Patient Hx - Developmental: No Pertinent Hx Peds Patient Hx - Medical: No Pertinent Hx Peds Patient Hx - Cardiac/Respiratory: No Pertinent Hx Peds Patient Hx - Surgical: No Surgical History Patient History - Cancer: No Hx of Cancer Review Of Systems (GEN) - Review of Systems Generalized/Overall Review: Present: Weakness, Chills, Fever EENTM: Present: No Symptoms Reported Respiratory: Present: Cough, Shortness of Breath, Wheezing Cardiac: Present: No Symptoms Reported Abdominal: Present: No Symptoms Reported Genitourinary: Present: No Symptoms Reported Musculoskeletal: Present: No Symptoms Reported Neurological: Present: No Symptoms Reported Skin: Present: No Symptoms Reported Endocrine: Present: No Symptoms Reported Immunizations: IMMUNIZATION HX Immunizations Up to Date Yes History of Influenza Vaccine More Information Required Hx Pneumococcal Vaccination More Information Required Allergies/Adverse Reactions: Allergies Allergy/AdvReac Type Severity Reaction Status Date / Time escitalopram oxalate Allergy Severe lips Verified 11/17/20 08:41 [From Lexapro] swelling, difficulty swollowing sertraline [From Zoloft] Allergy Intermediate Lip/tongue Verified 11/17/20 08:41 swelling Home Medications: HOME MEDICATIONS Aspirin [Aspir-Low] 81 mg PO DAILY 08/17/19 [Last Taken 11/08/19] Lactobacillus Acidophilus [Bacid] 1 ea PO DAILY #21 cap 11/17/19 [Last Taken Unknown] albuterol sulfate 90 mcg/actuation aerosol inhaler 2 puff INHALATION Q4H PRN #8.5 g 06/23/20 [Last Taken Unknown] ondansetron HCl 4 mg tablet 4 mg PO DAILY PRN #30 tab 09/09/20 [Last Taken Unknown] alprazolam 0.5 mg tablet 0.5 mg PO BID PRN #180 tab 09/26/20 [Last Taken Unknown] amitriptyline 150 mg tablet 150 mg PO HS #90 tab 11/17/20 [Last Taken Unknown] duloxetine 30 mg capsule,delayed release 30 mg PO DAILY #90 cap 11/17/20 [Last Taken Unknown] omeprazole 40 mg capsule,delayed release 40 mg PO BID #180 cap 12/18/20 [Last Taken Unknown] levothyroxine 88 mcg tablet 88 mcg PO DAILY #90 tab 02/03/21 [Last Taken Unknown] Benzonatate 100 mg PO TID PRN 02/09/21 [Last Taken Unknown] Exam - Exam Vital Signs: Vital Signs - Last Taken Temp 37.9 C 02/09/21 09:50 Pulse 113 H 02/09/21 09:50 Resp 22 H 02/09/21 09:50 BP 147/55 02/09/21 09:50 Pulse Ox 95 02/09/21 10:02 Constitutional: Present: Alert, Oriented x3, Cooperative, Well developed, Well nourished, No distress, Elderly ENT Exam: Present: normal ENT inspection, hearing grossly normal Eye Exam: bilateral eye: normal inspection, PERRL, EOMI Neck: Present: non-tender, full range of motion, supple, normal inspection, trachea midline Back Exam: Present: normal inspection, no CVA tenderness, no vertebral tenderness Breasts: Present: Exam deferred, Nontender Respiratory: Present: no respiratory distress, crackles, rales, rhonchi, wheezing Cardiovascular/Chest: Present: normal peripheral pulses, regular rate, rhythm, no chest tenderness, no edema, no gallop, no JVD, no murmur, no rub Peripheral Pulses: dorsalis-pedis (R): 2+, dorsalis-pedis (L): 2+ Abdomen: Present: Normal bowel sounds, soft, nontender, nondistended, no rebound tenderness, no hepatospenomegaly, no masses /Rectal: Present: Exam deferred Extremity: Present: normal range of motion, non-tender, normal inspection, no pedal edema, no calf tenderness, normal capillary refill, pelvis stable Skin Exam: Present: normal color, warm/dry, no cyanosis Lymphatic: Present: no adenopathy Neurologic: Present: subpoena server II-XII nml as tested, normal cerebellar test, no motor/sensory deficits, alert, normal mood/affect, oriented x 3 Appearance: Present: appropriate appearance, appropriate insight, neat, no memory impairment Eye contact: Present: cooperative, good eye contact, normal speech Thoughts: Present: normal thought pattern, no apparent hallucination Diagnostic Studies: Abnormal Lab Results 02/08/21 02/08/21 Range/Units 22:45 22:45 WBC 28.7 H (4.0-10.5) K/mm3 RBC 3.99 L (4.2-5.4) M/mm3 Hgb 11.4 L (12.5-16.0) gm/dL Hct 35.8 L (37.0-47.0) % MCHC 31.8 L (32-36) g/dl RDW 14.3 H (11.5-14.0) % Neutrophils % (Manual) 78 H (42-75) % Band Neuts % (Manual) 13 H (0-2.0) % Lymphocytes % (Manual) 6 L (20-51) % Neutrophils # (Manual) 22.4 H (1.3-6.0) K/mm3 Random Glucose 127 H (70-110) mg/dL ALT 17 L (19-67) U/L Albumin 3.3 L (3.4-5.0) gm/dl Laboratory Results WBC 28.7 K/mm3 (4.0-10.5) H 02/08/21 22:45 RBC 3.99 M/mm3 (4.2-5.4) L 02/08/21 22:45 Hgb 11.4 gm/dL (12.5-16.0) L 02/08/21 22:45 Hct 35.8 % (37.0-47.0) L 02/08/21 22:45 MCV 89.7 fl (78-100) 02/08/21 22:45 MCH 28.6 pg (27-31) 02/08/21 22:45 MCHC 31.8 g/dl (32-36) L 02/08/21 22:45 RDW 14.3 % (11.5-14.0) H 02/08/21 22:45 Plt Count 305 K/mm3 (150-450) 02/08/21 22:45 MPV 10.1 fl (8-12.5) 02/08/21 22:45 Neutrophils % (Manual) 78 % (42-75) H 02/08/21 22:45 Band Neuts % (Manual) 13 % (0-2.0) H 02/08/21 22:45 Lymphocytes % (Manual) 6 % (20-51) L 02/08/21 22:45 Monocytes % (Manual) 2 % (0-9) 02/08/21 22:45 Eosinophils % (Manual) 1 % (0-3) 02/08/21 22:45 Neutrophils # (Manual) 22.4 K/mm3 (1.3-6.0) H 02/08/21 22:45 Lymphocytes # (Manual) 1.7 k/mm3 (1.5-3.5) 02/08/21 22:45 Monocytes # (Manual) 0.6 k/mm3 (0.0-1.0) 02/08/21 22:45 Eosinophils # (Manual) 0.3 k/mm3 (0.0-0.7) 02/08/21 22:45 Platelet Estimate Normal (NORMAL) 02/08/21 22:45 RBC Morphology Normal (NORMAL) 02/08/21 22:45 Sodium 135 mmol/L (132-142) 02/08/21 22:45 Plasma Sodium 135 mmol/L (130-142) 02/08/21 22:45 Potassium 4.5 mmol/L (3.4-4.6) 02/08/21 22:45 Chloride 100 mmol/L (97-106) 02/08/21 22:45 Carbon Dioxide 27.2 mmol/L (24-32.6) 02/08/21 22:45 Anion Gap 12.3 mmol/L (6.8-13.8) 02/08/21 22:45 BUN 12 mg/dL (3-23) 02/08/21 22:45 Creatinine 0.96 mg/dL (0.4-1.4) 02/08/21 22:45 Est GFR (Non-Af Amer) 60 mL/min (60-130) 02/08/21 22:45 BUN/Creatinine Ratio 12.5 (9.0-21.6) 02/08/21 22:45 Random Glucose 127 mg/dL (70-110) H 02/08/21 22:45 Calcium 8.6 mg/dL (7.9-10.9) 02/08/21 22:45 Calcium Adj for Albumin 8.8 mg/dL (8.4-10.2) 02/08/21 22:45 Total Bilirubin 0.4 mg/dL (0.0-1.1) 02/08/21 22:45 AST 20 U/L (0-48) 02/08/21 22:45 ALT 17 U/L (19-67) L 02/08/21 22:45 Alkaline Phosphatase 84 U/L (50-170) 02/08/21 22:45 Total Protein 7.4 gm/dL (6.2-8.2) 02/08/21 22:45 Albumin 3.3 gm/dl (3.4-5.0) L 02/08/21 22:45 SARS-CoV-2 (PCR) Not detected (NotDetected) 02/09/21 00:55 Assessment/Plan - Narrative Narrative: Patient was evaluated medical chart was reviewed and decision to admit for acute bronchopneumonia, hypoxia and dehydration was made. The patient is tolerating IV antibiotics and IV fluid without any issues, she continues to present with significant productive cough and shortness of breath. Auscultation was significant for abnormal lung sound that included inspiratory wheezing rales and significant crackles at the lung bases, worse on left. The patient has had no recurrence of fever since leaving the ER but continues to complain of weakness. We will add breathing treatments to be administered [id number] given her significant wheezing and breathing difficulties and ordered symptomatic medications such as antibiotics and antitussives to address her symptoms. Labs have been ordered for tomorrow morning for reevaluation of her leukocytosis and electrolytes. We will continue to monitor her closely. - Assessment/Plan (1) Hypoxemia Problem: Resolved (2) CHF (congestive heart failure) Problem: Chronic Qualifiers: (3) Aspiration pneumonia Problem: Acute (4) Leukocytosis Problem: Acute (5) Hypoxia Problem: Resolved (6) Hypertension Problem: Chronic (7) GERD (gastroesophageal reflux disease) Problem: Chronic (8) Anxiety Problem: Chronic (9) Fever Problem: Resolved (10) HLD (hyperlipidemia) Problem: Chronic (11) Hypothyroidism Problem: Chronic (12) Dehydration Problem: Acute
[2021-02-09] MEDS: LACTOBACILLUS ACIDOPHILUS 1 EACH CAPSULE PO SCH (11:23)
[2021-02-09] MEDS: ENOXAPARIN SODIUM 40 MG/0.4 ML SYRG SC SCH (11:23)
[2021-02-09] MEDS: ASPIRIN 81 MG TABLET.DR PO SCH (11:23)
[2021-02-09] MEDS: DULoxetine HCL 30 MG CAPSULE.SA PO SCH (11:23)
[2021-02-09] MEDS: LEVOTHYROXINE SODIUM 88 MCG TABLET PO SCH (11:24)
[2021-02-09] MEDS: PANTOPRAZOLE SODIUM 40 MG TABLET.EC PO SCH ×2 (11:24→20:12)
[2021-02-09] MEDS: ALBUTEROL SULFATE/IPRATROPIUM 3 ML NEBU IH SCH ×5 (13:16→22:04)
[2021-02-09] MEDS: AMITRIPTYLINE HCL 50 MG TABLET PO SCH (20:08)
[2021-02-09] MEDS ORDERED: PANTOPRAZOLE SODIUM 20 MG TABLET.DR PO SCH (21:00)
[2021-02-10] MEDS: ALBUTEROL SULFATE/IPRATROPIUM 3 ML NEBU IH SCH (02:20)
[2021-02-10] MEDS: NORMAL SALINE 1,000 ML IV PRN ×4 (05:52→23:57)
[2021-02-10] MEDS: ALBUTEROL SULFATE 2.5 MG/3 ML VIAL.NEB IH PRN ×3 (05:58→22:04)
[2021-02-10 06:29] LABS: Hematocrit 29.4 % (37.0-47.0); Mean Cell Volume 92.2 fl (78-100); Mean Corpuscular Hemoglobin 28.2 pg (27-31); Mean Corpuscular Hgb Conc 30.6 g/dl (32-36); Mean Platelet Volume 10.7 fl (8-12.5); Neutrophil # 10.8 K/mm3 (1.3-6.0); Platelet Count 219 K/mm3 (150-450); Red Blood Count 3.19 M/mm3 (4.2-5.4); Red Cell Distribution Width 14.5 % (11.5-14.0); White Blood Count 16.4 K/mm3 (4.0-10.5)
[2021-02-10 06:42] LABS: Albumin * 2.7 gm/dl (3.4-5.0); Anion Gap 9.2 mmol/L (6.8-13.8); BUN/Creatinine Ratio 13.5 (9.0-21.6); Bilirubin, Total 0.3 mg/dL (0.0-1.1); Calcium * 8.3 mg/dL (7.9-10.9); Carbon Dioxide 30.6 mmol/L (24-32.6); Potassium 3.8 mmol/L (3.4-4.6); Total Protein 6.5 gm/dL (6.2-8.2)
[2021-02-10] MEDS: LEVOTHYROXINE SODIUM 88 MCG TABLET PO SCH (06:58)
[2021-02-10] MEDS: PANTOPRAZOLE SODIUM 40 MG TABLET.EC PO SCH ×2 (06:58→20:29)
[2021-02-10] MEDS: AZITHROMYCIN 250 MG TABLET PO SCH (09:08)
[2021-02-10] MEDS: ASPIRIN 81 MG TABLET.DR PO SCH (09:08)
[2021-02-10] MEDS: LACTOBACILLUS ACIDOPHILUS 1 EACH CAPSULE PO SCH (09:09)
[2021-02-10] MEDS: DULoxetine HCL 30 MG CAPSULE.SA PO SCH (09:09)
[2021-02-10] MEDS: ENOXAPARIN SODIUM 40 MG/0.4 ML SYRG SC SCH (10:01)
--- NOTE | 2021-02-10 13:34 | PN ---
Subjective - Date and Time Seen Date: 02/10/21 Time: 13:30 Subjective Narrative: Lesvia reports not feeling much better today. WBC has improved, but still elevated at 16k. No fever or chills. Weaned to room air late this afternoon. She has not been out of bed much. Objective - Vitals Vitals: Last Vital Signs Temp 37.7 C 02/10/21 09:53 Pulse 102 H 02/10/21 09:53 Resp 16 02/10/21 09:53 BP 113/66 02/10/21 09:53 Pulse Ox 94 02/10/21 09:53 - Abnormal Lab Findings Abnormal Lab Findings: Abnormal Lab Results 02/10/21 02/10/21 Range/Units 06:25 06:25 WBC 16.4 H D (4.0-10.5) K/mm3 RBC 3.19 L (4.2-5.4) M/mm3 Hgb 9.0 L (12.5-16.0) gm/dL Hct 29.4 L (37.0-47.0) % MCHC 30.6 L (32-36) g/dl RDW 14.5 H (11.5-14.0) % Immature Gran # (Auto) 0.06 H (0.000-0.0310) K/mm3 Lymphocytes % 15.5 L (20-51) % Eosinophils % 9.9 H (0.0-3.0) % Neutrophils # 10.8 H (1.3-6.0) K/mm3 Monocytes # 1.2 H (0.0-1.0) k/mm3 Eosinophils # 1.6 H (0.0-0.7) k/mm3 ALT 13 L (19-67) U/L Albumin 2.7 L (3.4-5.0) gm/dl - Exam Constitutional: Present: Alert, Oriented x3, Cooperative ENT Exam: Present: hearing grossly normal Respiratory: Present: crackles - bilateral base Cardiovascular/Chest: Present: regular rate, rhythm, no murmur Abdomen: Present: Normal bowel sounds, soft, nontender, nondistended Extremity: Present: normal inspection Skin Exam: Present: normal color, warm/dry, no cyanosis Lymphatic: Present: no adenopathy Appearance: Present: appropriate appearance, appropriate insight Eye contact: Present: cooperative, good eye contact, normal speech Thoughts: Present: normal thought pattern, no apparent hallucination Assessment/Plan Plan Narrative: Lesvia appears improved diagnostically, but clinically is unchanged. Her WBC has not normalized although it is headed in the right direction. Will continue current IV antibiotics of rocephin and azithromycin. I believe she meets inpatient criteria due to concern for aspiration pneumonia, no improvement clinically, and WBC that remains elevated at 16k. Will change to inpatient status and continue to monitor. I do not feel she has improved clinically enough to be able to discharge to home today. - Problems/Diagnosis (1) Aspiration pneumonia Problem: Acute Qualifiers: Aspiration pneumonia type: due to gastric secretions (2) GERD (gastroesophageal reflux disease) Problem: Chronic
[2021-02-10] MEDS: AMITRIPTYLINE HCL 50 MG TABLET PO SCH (20:29)
[2021-02-11] MEDS: ALBUTEROL SULFATE 2.5 MG/3 ML VIAL.NEB IH PRN (03:41)
[2021-02-11] MEDS: LEVOTHYROXINE SODIUM 88 MCG TABLET PO SCH (06:58)
[2021-02-11] MEDS: PANTOPRAZOLE SODIUM 40 MG TABLET.EC PO SCH ×2 (06:58→20:08)
[2021-02-11] MEDS: NORMAL SALINE 1,000 ML IV PRN (08:12)
[2021-02-11 08:55] LABS: Hematocrit 32.4 % (37.0-47.0); Hemoglobin 10.2 gm/dL (12.5-16.0); Mean Cell Volume 90.8 fl (78-100); Mean Corpuscular Hemoglobin 28.6 pg (27-31); Mean Corpuscular Hgb Conc 31.5 g/dl (32-36); Mean Platelet Volume 9.9 fl (8-12.5); Neutrophil # 8.5 K/mm3 (1.3-6.0); Neutrophil % 65.6 % (42-75.0); Platelet Count 261 K/mm3 (150-450); Red Blood Count 3.57 M/mm3 (4.2-5.4); Red Cell Distribution Width 14.3 % (11.5-14.0)
[2021-02-11 09:08] LABS: Albumin * 2.5 gm/dl (3.4-5.0); Anion Gap 11.5 mmol/L (6.8-13.8); BUN/Creatinine Ratio 7.8 (9.0-21.6); Bilirubin, Total 0.4 mg/dL (0.0-1.1); Calcium * 8.1 mg/dL (7.9-10.9); Carbon Dioxide 28.6 mmol/L (24-32.6); Potassium 4.1 mmol/L (3.4-4.6); Total Protein 6.5 gm/dL (6.2-8.2)
[2021-02-11] MEDS: ASPIRIN 81 MG TABLET.DR PO SCH (09:26)
[2021-02-11] MEDS: LACTOBACILLUS ACIDOPHILUS 1 EACH CAPSULE PO SCH (09:26)
[2021-02-11] MEDS: DULoxetine HCL 30 MG CAPSULE.SA PO SCH (09:26)
[2021-02-11] MEDS: AZITHROMYCIN 250 MG TABLET PO SCH (09:26)
[2021-02-11] MEDS: ENOXAPARIN SODIUM 40 MG/0.4 ML SYRG SC SCH (11:24)
--- NOTE | 2021-02-11 12:47 | PN ---
Subjective - Date and Time Seen Date: 02/11/21 Time: 12:44 Subjective Narrative: Lsevia had some confusion this morning but that has improved. She reports still coughing a wet cough. No fever or chills. She does not feel that much better. WBC has improved more but still elevated. She was off oxygen yesterday at rest but has required oxygen at night and with activity. She is currently on 0.5lpm. Objective - Vitals Vitals: Last Vital Signs Temp 37.2 C 02/11/21 10:00 Pulse 100 02/11/21 10:00 Resp 20 02/11/21 10:00 BP 145/86 02/11/21 10:00 Pulse Ox 95 02/11/21 10:00 - Abnormal Lab Findings Abnormal Lab Findings: Abnormal Lab Results 02/11/21 02/11/21 Range/Units 08:43 08:43 WBC 13.0 H D (4.0-10.5) K/mm3 RBC 3.57 L (4.2-5.4) M/mm3 Hgb 10.2 L (12.5-16.0) gm/dL Hct 32.4 L (37.0-47.0) % MCHC 31.5 L (32-36) g/dl RDW 14.3 H (11.5-14.0) % Immature Gran % (Auto) 0.80 H (0.001-0.429) % Immature Gran # (Auto) 0.11 H (0.000-0.0310) K/mm3 Lymphocytes % 14.7 L (20-51) % Eosinophils % 10.9 H (0.0-3.0) % Neutrophils # 8.5 H (1.3-6.0) K/mm3 Eosinophils # 1.4 H (0.0-0.7) k/mm3 BUN/Creatinine Ratio 7.8 L (9.0-21.6) ALT 11 L (19-67) U/L Albumin 2.5 L (3.4-5.0) gm/dl - Exam Constitutional: Present: Alert, Oriented x3, Cooperative ENT Exam: Present: hearing grossly normal Respiratory: Present: rhonchi Cardiovascular/Chest: Present: regular rate, rhythm, no murmur Abdomen: Present: Normal bowel sounds, soft, nontender, nondistended Skin Exam: Present: normal color, warm/dry, no cyanosis Assessment/Plan Plan Narrative: WBC continues to improve. Continue antibiotics. Will add cornet to help cough up sputum. She is still requiring oxygen with activity and at night. She does not use oxygen at home and would like to wean completely off oxygen before discharge to home. Anticipate discharge in the next 1-2 days if WBC normalizes and she weans off oxygen. - Problems/Diagnosis (1) Acute respiratory failure with hypoxia Problem: Acute (2) Aspiration pneumonia Problem: Acute Qualifiers: Aspiration pneumonia type: due to gastric secretions (3) GERD (gastroesophageal reflux disease) Problem: Chronic
[2021-02-11] MEDS: AMITRIPTYLINE HCL 50 MG TABLET PO SCH (20:17)
[2021-02-12 06:35] LABS: Hematocrit 31.1 % (37.0-47.0); Hemoglobin 9.8 gm/dL (12.5-16.0); Mean Cell Volume 90.1 fl (78-100); Mean Corpuscular Hemoglobin 28.4 pg (27-31); Mean Corpuscular Hgb Conc 31.5 g/dl (32-36); Mean Platelet Volume 9.9 fl (8-12.5); Neutrophil % 56.7 % (42-75.0); Platelet Count 311 K/mm3 (150-450); Red Blood Count 3.45 M/mm3 (4.2-5.4); Red Cell Distribution Width 14.1 % (11.5-14.0); White Blood Count 10.5 K/mm3 (4.0-10.5)
[2021-02-12 06:56] LABS: Albumin * 2.5 gm/dl (3.4-5.0); Anion Gap 11.8 mmol/L (6.8-13.8); BUN/Creatinine Ratio 7.2 (9.0-21.6); Bilirubin, Total 0.4 mg/dL (0.0-1.1); Ca. Corrected For Albumin 9.5 mg/dL (8.4-10.2); Calcium * 8.6 mg/dL (7.9-10.9); Carbon Dioxide 28.9 mmol/L (24-32.6); Potassium 3.7 mmol/L (3.4-4.6); Total Protein 6.7 gm/dL (6.2-8.2)
[2021-02-12] MEDS: PANTOPRAZOLE SODIUM 40 MG TABLET.EC PO SCH ×2 (07:09→20:41)
[2021-02-12] MEDS: LEVOTHYROXINE SODIUM 88 MCG TABLET PO SCH (07:09)
[2021-02-12] MEDS: LACTOBACILLUS ACIDOPHILUS 1 EACH CAPSULE PO SCH (08:39)
[2021-02-12] MEDS: AZITHROMYCIN 250 MG TABLET PO SCH (08:39)
[2021-02-12] MEDS: DULoxetine HCL 30 MG CAPSULE.SA PO SCH (08:39)
[2021-02-12] MEDS: ASPIRIN 81 MG TABLET.DR PO SCH (08:40)
[2021-02-12] MEDS: ENOXAPARIN SODIUM 40 MG/0.4 ML SYRG SC SCH (10:34)
[2021-02-12] MEDS ORDERED: AMITRIPTYLINE HCL 50 MG TABLET PO SCH (21:00)
--- NOTE | 2021-02-12 22:51 | PN ---
Subjective - Date and Time Seen Date: 02/12/21 Time: 11:00 Subjective Narrative: She reports feeling better and no longer short of breath. She would like to go home. On room air her oxygen is 90% or greater at rest but with any activity it drops to 86%. Last night she was confused and nursing reports oxygen dropped below 88% while sleeping. resource coordinator attempted to get oxygen qualified for home but was unable without a chronic condition such as COPD or CHF and pn lico did not qualify. Unable to get home oxygen. Objective - Vitals Vitals: Last Vital Signs Temp 36.8 C 02/12/21 21:11 Pulse 97 02/12/21 21:11 Resp 16 02/12/21 21:11 BP 134/76 02/12/21 21:11 Pulse Ox 93 02/12/21 21:11 - Abnormal Lab Findings Abnormal Lab Findings: Abnormal Lab Results 02/12/21 02/12/21 Range/Units 06:31 06:31 RBC 3.45 L (4.2-5.4) M/mm3 Hgb 9.8 L (12.5-16.0) gm/dL Hct 31.1 L (37.0-47.0) % MCHC 31.5 L (32-36) g/dl RDW 14.1 H (11.5-14.0) % Immature Gran % (Auto) 1.00 H (0.001-0.429) % Immature Gran # (Auto) 0.10 H (0.000-0.0310) K/mm3 Eosinophils % 4.1 H (0.0-3.0) % BUN/Creatinine Ratio 7.2 L (9.0-21.6) ALT 12 L (19-67) U/L Albumin 2.5 L (3.4-5.0) gm/dl - Exam Constitutional: Present: Alert, Oriented x3, Mild distress ENT Exam: Present: hearing grossly normal Cardiovascular/Chest: Present: regular rate, rhythm, no murmur Abdomen: Present: Normal bowel sounds, soft, nontender, nondistended Skin Exam: Present: normal color, warm/dry, no cyanosis Appearance: Present: appropriate appearance, appropriate insight Eye contact: Present: cooperative, good eye contact, normal speech Assessment/Plan Plan Narrative: Clinically improving, she is feeling well enough to go home. WBC has normalized. Still hypoxic with activity and insurance won't approve home oxygen so patient will need to stay in the hospital until she can be weaned off oxygen. Continue ambulation, cornet, and incentive spirometer. Patient is motivate as she wants to go home. - Problems/Diagnosis (1) Acute respiratory failure with hypoxia Problem: Acute (2) Aspiration pneumonia Problem: Acute Qualifiers: Aspiration pneumonia type: due to gastric secretions (3) GERD (gastroesophageal reflux disease) Problem: Chronic
[2021-02-13] MEDS: PANTOPRAZOLE SODIUM 40 MG TABLET.EC PO SCH (06:58)
[2021-02-13] MEDS: LEVOTHYROXINE SODIUM 88 MCG TABLET PO SCH (06:58)
[2021-02-13] MEDS: LACTOBACILLUS ACIDOPHILUS 1 EACH CAPSULE PO SCH (08:53)
[2021-02-13] MEDS: AZITHROMYCIN 250 MG TABLET PO SCH (08:54)
[2021-02-13] MEDS: ASPIRIN 81 MG TABLET.DR PO SCH (08:54)
[2021-02-13] MEDS: DULoxetine HCL 30 MG CAPSULE.SA PO SCH (08:54)
[2021-02-13] MEDS: ENOXAPARIN SODIUM 40 MG/0.4 ML SYRG SC SCH (10:38)
--- NOTE | 2021-02-13 12:47 | DS ---
(1) Acute respiratory failure with hypoxia Problem: Acute (2) Aspiration pneumonia Problem: Acute Qualifiers: Aspiration pneumonia type: due to gastric secretions Laterality: bilateral Lung location: lower lobe of lung Qualified Code(s): J69.0 - Pneumonitis due to inhalation of food and vomit (3) GERD (gastroesophageal reflux disease) Problem: Chronic Date of Discharge:: 02/13/21 Hospital Course: Lesvia is a 76 yo female admitted for pneumonia suspected to be secondary to aspiration of gastric secretions from her GERD. She was treated with azithromycin and cefdinir and improved clinically. She feels better and no longer having shortness of breath. Her WBC improved from >20k to normal. She has improved in oxygenation as she was initially requiring oxygen continuous to keep her saturation 90% or above to know only needing it with activity and at night. She feels well and wants to go home but her oxygen continues to drop. We attempted to get insurance to cover home oxygen but as this is from an acute condition it was not covered. Her is willing to rent oxygen on his own. She will use 1lpm of oxygen with activity and at night. She will complete her course of antibiotics as an outpatient. She will follow up with me in a week. Procedures Performed: none Results and Findings: Pending Mircobiology Results 02/08/21 22:49 Blood Blood Culture - Preliminary NO GROWTH AFTER 48 HOURS 02/08/21 22:45 Blood Blood Culture - Preliminary NO GROWTH AFTER 48 HOURS Lab Pending Results 02/08/21 22:45: WBC 28.7 H, RBC 3.99 L, Hgb 11.4 L, Hct 35.8 L, MCV 89.7, MCH 28.6, MCHC 31.8 L, RDW 14.3 H, Plt Count 305, MPV 10.1, Neutrophils % (Manual) 78 H, Band Neuts % (Manual) 13 H, Lymphocytes % (Manual) 6 L, Monocytes % (Manual) 2, Eosinophils % (Manual) 1, Neutrophils # (Manual) 22.4 H, Lymphocytes # (Manual) 1.7, Monocytes # (Manual) 0.6, Eosinophils # (Manual) 0.3, Platelet Estimate Normal, RBC Morphology Normal 02/08/21 22:45: Sodium 135, Plasma Sodium 135, Potassium 4.5, Chloride 100, Carbon Dioxide 27.2, Anion Gap 12.3, BUN 12, Creatinine 0.96, Est GFR (Non-Af Amer) 60, BUN/Creatinine Ratio 12.5, Random Glucose 127 H, Calcium 8.6, Calcium Adj for Albumin 8.8, Total Bilirubin 0.4, AST 20, ALT 17 L, Alkaline Phosphatase 84, Total Protein 7.4, Albumin 3.3 L 02/09/21 00:55: SARS-CoV-2 (PCR) Not detected 02/10/21 06:25: WBC 16.4 H D, RBC 3.19 L, Hgb 9.0 L, Hct 29.4 L, MCV 92.2, MCH 28.2, MCHC 30.6 L, RDW 14.5 H, Plt Count 219, MPV 10.7, Immature Gran % (Auto) 0.40, Immature Gran # (Auto) 0.06 H, Neutrophils % 66.0, Lymphocytes % 15.5 L, Monocytes % 7.4, Eosinophils % 9.9 H, Basophils % 0.8, Nucleated RBC % 0.0, Neutrophils # 10.8 H, Lymphocytes # 2.54, Monocytes # 1.2 H, Eosinophils # 1.6 H, Absolute Basophils 0.1 02/10/21 06:25: Sodium 139, Plasma Sodium 139, Potassium 3.8, Chloride 103, C arbon Dioxide 30.6, Anion Gap 9.2, BUN 10, Creatinine 0.74, Est GFR (Non-Af Amer) 81 D, BUN/Creatinine Ratio 13.5, Random Glucose 101, Calcium 8.3, Calcium Adj for Albumin 9.0, Total Bilirubin 0.3, AST 12, ALT 13 L, Alkaline Phosphatase 72, Total Protein 6.5, Albumin 2.7 L 02/11/21 08:43: WBC 13.0 H D, RBC 3.57 L, Hgb 10.2 L, Hct 32.4 L, MCV 90.8, MCH 28.6, MCHC 31.5 L, RDW 14.3 H, Plt Count 261, MPV 9.9, Immature Gran % (Auto) 0.80 H, Immature Gran # (Auto) 0.11 H, Neutrophils % 65.6, Lymphocytes % 14.7 L, Monocytes % 7.3, Eosinophils % 10.9 H, Basophils % 0.7, Nucleated RBC % 0.0, Neutrophils # 8.5 H, Lymphocytes # 1.92, Monocytes # 1.0, Eosinophils # 1.4 H, Absolute Basophils 0.1 02/11/21 08:43: Sodium 141, Plasma Sodium 141, Potassium 4.1, Chloride 105, Carbon Dioxide 28.6, Anion Gap 11.5, BUN 5, Creatinine 0.64, Est GFR (Non-Af Amer) 96, BUN/Creatinine Ratio 7.8 L, Random Glucose 95, Calcium 8.1, Calcium Adj for Albumin 9.0, Total Bilirubin 0.4, AST 13, ALT 11 L, Alkaline Phosphatase 77, Total Protein 6.5, Albumin 2.5 L 02/12/21 06:31: WBC 10.5, RBC 3.45 L, Hgb 9.8 L, Hct 31.1 L, MCV 90.1, MCH 28.4, MCHC 31.5 L, RDW 14.1 H, Plt Count 311, MPV 9.9, Immature Gran % (Auto) 1.00 H, Immature Gran # (Auto) 0.10 H, Neutrophils % 56.7, Lymphocytes % 28.3, Monocytes % 8.9, Eosinophils % 4.1 H, Basophils % 1.0, Nucleated RBC % 0.0, Neutrophils # 6.0, Lymphocytes # 2.98, Monocytes # 0.9, Eosinophils # 0.4, Absolute Basophils 0.1 02/12/21 06:31: Sodium 142, Plasma Sodium 142, Potassium 3.7, Chloride 105, Carbon Dioxide 28.9, Anion Gap 11.8, BUN 5, Creatinine 0.69, Est GFR (Non-Af Amer) 88, BUN/Creatinine Ratio 7.2 L, Random Glucose 95, Calcium 8.6, Calcium Adj for Albumin 9.5, Total Bilirubin 0.4, AST 12, ALT 12 L, Alkaline Phosphatase 82, Total Protein 6.7, Albumin 2.5 L Discharge Location: Home Disposition: Home self-care Condition: Fair Discharge Activity: Activity as tolerated Discharge Diet: General/regular food Referrals: Matthew Berman DO [Primary Care Provider] - One Week Problem Oriented Discharge Instructions to Patient/Family: Community-Acquired Pneumonia, Adult, [id number] Additional Patient Instructions (free text): Discussed with her and her that she should use the oxygen with activity and at night, but they may periodically go without the oxygen and monitor with pulse oximeter that they have at home. If the oxygen stays at 90% or above then she does not have to use oxygen but if it drops below 90% I would place her back on oxygen and recheck daily. She should also continue to use the incentive spirometer and cornet at home and continue to work on ambulation. Prescriptions (Any new or edited meds): Cefdinir [Omnicef] 300 mg PO Q12H #10 cap Transmission Status: Pending to [facility] Complete Home Medications List: Complete Home Medication List: Aspirin [Aspir-Low] 81 mg PO DAILY 08/17/19 Lactobacillus Acidophilus [Bacid] 1 ea PO DAILY #21 cap 11/17/19 albuterol sulfate 90 mcg/actuation aerosol inhaler 2 puff INHALATION Q4H PRN #8.5 g 06/23/20 ondansetron HCl 4 mg tablet 4 mg PO DAILY PRN #30 tab 09/09/20 amitriptyline 150 mg tablet 150 mg PO HS #90 tab 11/17/20 duloxetine 30 mg capsule,delayed release 30 mg PO DAILY #90 cap 11/17/20 omeprazole 40 mg capsule,delayed release 40 mg PO BID #180 cap 12/18/20 levothyroxine 88 mcg tablet 88 mcg PO DAILY #90 tab 02/03/21 Acetaminophen with Codeine [Tylenol-Codeine 300 MG/30 MG] 1 ea PO Q6H PRN 02/09/21 Benzonatate 100 mg PO TID PRN 02/09/21 alprazolam 0.5 mg tablet 0.5 mg PO BID PRN #180 tab 02/11/21 ALPRAZolam [Xanax] 0.5 mg PO BID PRN tablet 02/13/21 Acetaminophen [Tylenol] 650 mg PO Q4H PRN tablet 02/13/21 Cefdinir [Omnicef] 300 mg PO Q12H #10 cap 02/13/21 Forms: Patient Portal Registration
[2021-02-13 15:12] VITALS: BP 137/71
== END 2021-02-13 15:39 | disposition home or self-care (01) | DRG 177 ==
LOC: MS 21:13 → ER 21:13 → MS 02-09 02:35
PROVIDERS: ADMIT Family Medicine; ATTEND Family Medicine